=== PATIENT | female | born 1965 | race African-American/Black ===

== ENCOUNTER 2019-05-27 10:51 | Emergency (ER) | payer BC, OTHER ==
[2019-05-27 11:11] VITALS: BP 174/84; PULSE 79; TEMP 97.7; BMI 29.8
--- NOTE | 2019-05-27 11:47 | PDOC ---
History of Present Illness - General Chief Complaint: Blood Sugar Problem Stated Complaint: Hypoglycemia Time Seen by Provider: 05/27/19 11:29 History Source: Patient Exam Limitations: No Limitations - History of Present Illness Initial Comments: 05/27/19 11:29 PCP: Dr. Mert Ruiz HPI: 54yo F PMH DM1, Glaucoma, Retinopathy, Neuropathy, Foot drop, patient presenting s/p hypoglycemic episode while at a brunch event. She denies LOC / trauma. Patient recently changed insurance and can no longer use her insulin pump, she is now on 35 U Lantis qHS and ISS Humalog. Took 20 U of Humalog this morning in anticipation of a big brunch at an event. The food was delayed and she developed altered mental status, her family grew concerned and she felt altered / lightheaded for abotu 30 minutes. During this time, her family attempted to feed her brunch foods. She drank 3 cups of orange juice and a cup of william mimi. Nearby diabetics called 911. When EMS arrived on the scene her BGM was 50 and she was transported to [facility]. Here her BGM was 159. She reports feeling tired at the current time but feels mentally clear and is cooperative, oriented, and denies any other symptoms at this time. All: NKDA Meds: Insulin PMH: DM1, Glaucoma, Retinopathy, Neuropathy, Foot drop PSH: Denies SHx: Denies toxic habits Past History - Past Medical History Allergies/Adverse Reactions: Allergies Allergy/AdvReac Type Severity Reaction Status Date / Time No Known Allergies Allergy Verified 05/27/19 11:10 Home Medications: Ambulatory Orders Cephalexin [Keflex] 500 mg PO TID 7 Days #21 capsule 05/27/19 COPD: No Diabetes: Yes (NEUROPATHY) - Immunization History Immunization Up to Date: Yes - Psycho Social/Smoking Cessation Hx Smoking History: Unknown if ever smoked Have you smoked in the past 12 months: No Information on smoking cessation initiated: No Hx Alcohol Use: No Drug/Substance Use Hx: No Review of Systems - Review of Systems Able to Perform ROS?: Yes Is the patient limited Irish proficient: Yes Constitutional: Yes: Diaphoresis (during event). No: Chills, Fever, Weakness HEENTM: No: Nose Congestion, Throat Pain Respiratory: No: Cough, Shortness of Breath, Wheezing Cardiac (ROS): No: Chest Pain, Edema, Irregular Heart Rate, Lightheadedness, Palpitations, Syncope, Chest Tightness ABD/GI: No: Constipated, Diarrhea, Nausea, Vomiting : No: Burning, Dysuria, Frequency Integumentary: No: Bruising, Pruritus, Rash Neurological: No: Headache, Numbness, Tingling, Weakness Psychiatric: No: Stressors, Change in Appetite Endocrine: No: Increased Thirst, Increased Urine Hematologic/Lymphatic: No: Anemia, Blood Clots, Easy Bleeding All Other Systems: Reviewed and Negative *Physical Exam - Vital Signs Last Vital Signs Temp Pulse Resp BP Pulse Ox 97.7 F 79 19 174/84 H 97 05/27/19 11:08 05/27/19 11:08 05/27/19 11:08 05/27/19 11:08 05/27/19 11:08 - Physical Exam 05/27/19 11:52 Vitals reviewed, AFVSS, BGM 159 GEN: Well appearing, appears stated age, NAD, comfortable. AAOx3. HEENT: NCAT, EOMI, PERRL. Sclera anicteric, non-injected. No facial asymmetry. Moist mucous membranes. Normal voice. Trachea midline. CV: RRR, S1/S2, no murmurs / rubs / gallops appreciated. LUNG: CTAB, normal work of breathing. No wheezes, rales, rhonchi. No cough. Speaking full sentences. GI: Soft, NTND, +BS, no guarding, no rebound. No masses. Neg CVAT b/l. EXTREMITIES: 2+ distal pulses. No LE edema. No obvious deformities of all extremities. SKIN: Warm, dry, no rashes appreciated, non-jaundiced. PSYCH: Normal mood and affect. Cooperative and appropriate. NEURO: CN grossly intact. Moving all extremities well. Normal strength and sensation grossly. ED Treatment Course - LABORATORY CBC & Chemistry Diagram: 05/27/19 11:22 05/27/19 11:22 - ADDITIONAL ORDERS Additional order review: Laboratory Results 05/27/19 11:02 POC Glucometer 159 05/27/19 11:02 POC Glucometer 159 Medical Decision Making - Medical Decision Making 05/27/19 11:53 54yo F PMH DM1, Glaucoma, Retinopathy, Neuropathy, Foot drop, patient presenting s/p hypoglycemic episode while at a brunch event. History notable for exogenous insulin administration inducing hypoglycemia. - CBC, CMP, BGM, UA 05/27/19 12:46 - Patient with UA c/w UTI 05/27/19 12:54 - Labs otherwise unremarkable, Cr 1.4 - 1L IVF ordered - Urine culture ordered 05/27/19 13:43 - Urine culture obtained - Rocephin ordered Dispo: home Discharge - Discharge Information Problems reviewed: Yes Clinical Impression/Diagnosis: Hypoglycemia associated with diabetes UTI (urinary tract infection) Qualifiers: Urinary tract infection type: site unspecified Hematuria presence: with hematuria Qualified Code(s): N39.0 - Urinary tract infection, site not specified Condition: Stable Disposition: HOME - Admission No - Additional Discharge Information Prescriptions: Cephalexin [Keflex] 500 mg PO TID 7 Days #21 capsule - Follow up/Referral Referrals: Mert Ruiz MD, MD [Primary Care Provider] - - Patient Discharge Instructions Patient Printed Discharge Instructions: DI for Urinary Tract Infection (UTI), DI for Hypoglycemia Additional Instructions: Continue your home medications as prescribed. A prescription for antibiotics has been sent to your pharmacy. Please take it as directed, three times a day for 7 days. Please follow up with your primary care doctor on Tuesday morning. Return to the ED for any new or concerning symptoms. - Post Discharge Activity
[2019-05-27 12:19] LABS: BASO % 0.6 % (0-2.0); EOS % 3.6 % (0-4.5); HEMATOCRIT 38.1 % (32.4-45.2); HEMOGLOBIN 12.3 GM/dL (10.7-15.3); LYMPH % 24.9 % (8-40); MCH 26.3 pg (25.7-33.7); MCHC 32.3 g/dl (32.0-36.0); MEAN CELL VOLUME 81.4 fl (80-96); MEAN PLT VOLUME 7.7 fl (7.5-11.1); MONO % 10.9 % (3.8-10.2); PLATELET COUNT 353 K/MM3 (134-434); RBC 4.68 M/mm3 (3.60-5.2); RDW 13.3 % (11.6-15.6); WHITE BLOOD COUNT 6.2 K/mm3 (4.0-10.0)
[2019-05-27 12:22] LABS: EPI CELLS 3.9 /HPF (0-5/HPF); HYALINE CASTS 5 /lpf (0-8); PH,URINE 5.5 (5.0-8.0); URINE APPEARANCE TURBID; URINE BACTERIA 4860.4 /hpf (NEGATIVE); URINE BILIRUBIN NEGATIVE (NEGATIVE); URINE COLOR YELLOW; URINE GLUCOSE (UA) 2+ (NEGATIVE); URINE KETONE NEGATIVE (NEGATIVE); URINE LEUK ESTERASE 2+ (NEGATIVE); URINE NITRITE NEGATIVE (NEGATIVE); URINE PROTEIN 3+ (NEGATIVE); URINE RBC 38 /hpf (0-4); URINE UROBILINOGEN 0.2 mg/dL (0.2-1.0); URINE WBC 774 /hpf (0-5)
[2019-05-27 12:48] LABS: ALBUMIN 2.9 g/dl (3.4-5.0); BILIRUBIN,TOTAL 0.2 mg/dL (0.2-1); BLOOD UREA NITROGEN 26.2 mg/dL (7-18); CALCIUM 9.9 mg/dL (8.5-10.1); CREATININE 1.4 mg/dL (0.55-1.3); POTASSIUM 3.9 mmol/L (3.5-5.1)
--- NOTE | 2019-05-27 12:48 | PDOC ---
Attending Attestation - Resident Resident Name: Cam Dickey - ED Attending Attestation I have performed the following: I have examined & evaluated the patient, The case was reviewed & discussed with the resident, I agree w/resident's findings & plan, Exceptions are as noted - HPI HPI: 05/27/19 54-year-old female brought by ambulance after having a hypoglycemic episode. HPI recently lost insurance coverage for her insulin pump. Today she took both short acting and long acting insulin and delayed eating because she was going out to [facility]. 05/27/19 12:56 - Physicial Exam PE: 05/27/19 12:57 alert petite 54 yo female stating she feels tired head ncat eyes maryse neck supple lungs cta b/l cvs [id number] abd nontender skin warm and dry neuro alert and conversant ,motor strength 5/5 b/l - Medical Decision Making 05/27/19 18:14 pt given food to eat felt much better and was discharged home
[2019-05-27] MEDS ORDERED: SODIUM CHLORIDE 0.9% 500 ML INFUS.BAG IV ONE (12:53)
[2019-05-27] MEDS ORDERED: CEFTRIAXONE 1 GM in DEXTROSE 5%-WATER - 100 ML IVPB ONE (13:42)
[2019-05-27] MEDS ORDERED: CEFTRIAXONE 1 GM/50 ML BAG ONE (13:52)
== END 2019-05-27 14:29 | disposition home or self-care (01) ==
LOC: JER 10:51
DX: E10.649 Type 1 diabetes mellitus with hypoglycemia without coma (principal); Z79.4 Long term (current) use of insulin; N39.0 Urinary tract infection, site not specified; E10.42 Type 1 diabetes mellitus with diabetic polyneuropathy; E10.319 Type 1 diabetes mellitus with unspecified diabetic retinopathy without macular edema; H35.00 Unspecified background retinopathy; H40.9 Unspecified glaucoma
CPT/HCPCS: 36415; 80053; 81003; 82962; 85025; 87077; 87086; 96365; 99284-25

== ENCOUNTER 2020-07-24 04:38 | Day surgery (SDC) | payer BC ==
[2020-07-23 15:06] VITALS: BMI 28.3
[~2020-07-24 04:38] MED LIST: HEPARIN NA (PORCINE) 5,000 UNITS/ML 1ML VIAL SQ ONE; LIDOCAINE HCL 1%, 10 MG/ML (20ML VIAL) INF ONE
[2020-07-24] MEDS ORDERED: LIDOCAINE HCL 1%, 10 MG/ML (20ML VIAL) ONE (07:18)
[2020-07-24] MEDS ORDERED: HEPARIN NA (PORCINE) 5,000 UNITS/ML 1ML VIAL ONE (07:18)
[2020-07-24] MEDS ORDERED: MIDAZOLAM HCL 2 MG/2 ML SINGLE DOSE VIAL ONE ×2 (12:57)
[2020-07-24] MEDS ORDERED: ceFAZolin 2 GRAM PREMIX BAG IVPB ONE (13:10)
[2020-07-24] MEDS ORDERED: ceFAZolin SODIUM 1 GM VIAL ONE (13:18)
[2020-07-24] MEDS ORDERED: LIDOCAINE HCL 1%, 10 MG/ML (20ML VIAL) INF ONE ×3 (13:20→13:22)
[2020-07-24] MEDS ORDERED: HEPARIN NA (PORCINE) 5,000 UNITS/ML 1ML VIAL SQ ONE (13:24)
[2020-07-24] MEDS ORDERED: oxyCODONE HCL 5 MG TABLET PO PRN (13:48)
[2020-07-24] MEDS ORDERED: ONDANSETRON 4 MG/2 ML VIAL IVPUSH PRN (13:48)
[2020-07-24] MEDS ORDERED: LACTATED RINGERS SOLUTION 1,000 ML IV SCH (14:00)
[2020-07-24 15:09] VITALS: TEMP 97.6
[2020-07-24 16:11] VITALS: BP 140/90; PULSE 90
== END 2020-07-24 17:00 | disposition home or self-care (01) ==
LOC: JASU-SURG 04:38
PROVIDERS: ATTEND Surgery Vascular Surgery
PROC: B41DZZZ Fluoroscopy of Aorta and Bilateral Lower Extremity Arteries (ICD-10-PCS; principal; 2020-07-24 09:00)
DX: E11.621 Type 2 diabetes mellitus with foot ulcer (principal); L97.519 Non-pressure chronic ulcer of other part of right foot with unspecified severity; Z79.4 Long term (current) use of insulin
CPT/HCPCS: 75710-TC-FY; 76000-TC-FY; 82962; 94760; J1644

== ENCOUNTER 2020-08-11 12:26 | Emergency (ER) | payer BC ==
[2020-08-12 07:13] LABS: SARS-CoV-2 NAA Not Detected (Not Detected)
== END 2020-08-11 12:56 | disposition home or self-care (01) ==
LOC: JVIRT 12:26
DX: Z11.52 Encounter for screening for COVID-19 (principal)
CPT/HCPCS: C9803; G2251-GT; U0003; U0005

== ENCOUNTER 2020-08-14 16:50 | Emergency (ER) | payer BC ==
[2020-08-14 16:59] VITALS: BP 109/66; PULSE 83; BMI 28.3
== END 2020-08-14 20:30 | disposition home or self-care (01) ==
LOC: JER 16:50
DX: L97.519 Non-pressure chronic ulcer of other part of right foot with unspecified severity (principal)
CPT/HCPCS: 82962; 99283-25

== ENCOUNTER 2020-09-08 11:51 | Inpatient (IN) | payer BC ==
[2020-09-08 13:37] LABS: BASO % 0.1 % (0-2.0); EOS % 0.8 % (0-4.5); HEMATOCRIT 22.1 % (32.4-45.2); MCH 24.4 pg (25.7-33.7); MCHC 31.8 g/dl (32.0-36.0); MEAN CELL VOLUME 76.7 fl (80-96); MEAN PLT VOLUME 6.4 fl (7.5-11.1); MONO % 5.1 % (3.8-10.2); PLATELET COUNT 543 K/MM3 (134-434); RBC 2.88 M/mm3 (3.60-5.2); RDW 15.4 % (11.6-15.6)
[2020-09-08 13:46] LABS: INR 1.14 (0.83-1.09)
[2020-09-08 13:49] LABS: ACTIVATED PTT 26.8 SECONDS (25.2-36.5)
[2020-09-08 14:04] LABS: CHLORIDE 111 mmol/L (98-107); SODIUM 137 mmol/L (136-145)
[2020-09-08 14:08] LABS: ALBUMIN 1.5 g/dl (3.4-5.0); ANION GAP 7 MMOL/L (8-16); CALCIUM 8.6 mg/dL (8.5-10.1); CO2 19 mmol/L (21-32); GLUCOSE,RANDOM 174 mg/dL (74-106); MAGNESIUM 1.7 mg/dL (1.8-2.4)
[2020-09-08 14:11] LABS: CREATININE 2.4 mg/dL (0.55-1.3); SGOT/AST 9 U/L (15-37); SGPT/ALT 11 U/L (13-61)
[2020-09-08] MEDS ORDERED: VANCOMYCIN 1 GM in D5W (PRE-DOCKED) 1,000 MG/250 ML IVPB ONE (14:12)
[2020-09-08] MEDS ORDERED: PIPERACILLIN/TAZOB 4.5 GM 4.5 GM in DEXTROSE 5%-WATER 100 ML IVPB ONE (14:12)
[2020-09-08 14:13] LABS: BILIRUBIN,TOTAL 0.4 mg/dL (0.2-1); TOT PROT 6.7 g/dl (6.4-8.2)
[2020-09-08 14:14] LABS: ALK PHOS 138 U/L (45-117)
[2020-09-08] MEDS ORDERED: MAGNESIUM SULF 50% (8.12 MEQ/2 ML-1 GM VIAL) IVPB ONE (14:14)
[2020-09-08 14:16] LABS: N-TERMINAL BNP 1290.8 pg/ml (5-125)
[2020-09-08 14:18] LABS: BLOOD UREA NITROGEN 47.8 mg/dL (7-18)
[2020-09-08] MEDS ORDERED: SODIUM CHLORIDE 0.9% 500 ML INFUS.BAG IV ONE (14:34)
[2020-09-08] MEDS ORDERED: PIPERACILLIN/TAZOB 4.5 GM 4.5 GM/100 ML BAG IVPB ONE (15:10)
[2020-09-08] MEDS ORDERED: MAGNESIUM SULFATE IN WATER 2 GM/50 ML IVPB IVPB ONE (15:10)
[2020-09-08] MEDS ORDERED: VANCOMYCIN 1 GRAM (PRE-DOCKED) 1,000 MG/250 ML BAG IVPB ONE (15:10)
[2020-09-08 16:02] LABS: ANISOCYTOSIS 1+; MACROCYTOSIS 0; PLATELET ESTIMATE INCREASED
[2020-09-08] MEDS ORDERED: ENOXAPARIN NA (PORCINE) 80 MG/0.8 ML DISP.SYRIN SQ ONE ×2 (16:18→18:12)
[2020-09-08 20:33] VITALS: BMI 30.8
[2020-09-08] MEDS: SODIUM CHLORIDE 1,000 ML IV SCH (21:15)
[2020-09-08 21:18] LABS: EPI CELLS 10 /uL (0-25.1); HYALINE CASTS 2 /uL (0-3.1); URINE APPEARANCE CLEAR; URINE BACTERIA 146 /uL (0-1359); URINE BILIRUBIN NEGATIVE (NEGATIVE); URINE COLOR YELLOW; URINE GLUCOSE (UA) TRACE (NEGATIVE); URINE KETONE NEGATIVE (NEGATIVE); URINE LEUK ESTERASE TRACE (NEGATIVE); URINE NITRITE NEGATIVE (NEGATIVE); URINE PROTEIN 3+ (NEGATIVE); URINE RBC 23 /uL (0-23.9); URINE UROBILINOGEN 0.2 mg/dL (0.2-1.0); URINE WBC 274 /uL (0-25.8)
[2020-09-08] MEDS: HEPARIN NA (PORCINE) 5,000 UNITS/ML 1ML VIAL SQ SCH (21:28)
[2020-09-08] MEDS ORDERED: amLODIPine BESYLATE 10 MG TABLET (FP) PO ONE (23:30)
[2020-09-09] MEDS ORDERED: CYCLOBENZAPRINE HCL 5 MG TABLET PO ONE (00:15)
[2020-09-09] MEDS ORDERED: MIRTAZAPINE 15 MG TABLET (FP) PO ONE ×2 (00:15→00:30)
[2020-09-09] MEDS ORDERED: PIPERACILLIN/TAZOBACTAM 3.375 GM VIAL IVPB ONE ×2 (02:31→09:13)
[2020-09-09] MEDS ORDERED: DEXTROSE 5%-WATER - 50 ML IVPB ONE ×3 (02:32→17:17)
[2020-09-09] MEDS: PIPERACILLIN/TAZOB 3.375 GM 3.375 GM in DEXTROSE 5%-WATER - 50 ML IVPB SCH ×2 (02:53→09:17)
[2020-09-09] MEDS: HEPARIN NA (PORCINE) 5,000 UNITS/ML 1ML VIAL SQ SCH ×3 (05:55→21:10)
[2020-09-09 08:16] LABS: BASO % 0.3 % (0-2.0); EOS % 1.3 % (0-4.5); HEMATOCRIT 28.2 % (32.4-45.2); HEMOGLOBIN 9.1 GM/dL (10.7-15.3); LYMPH % 5.1 % (8-40); MCH 25.3 pg (25.7-33.7); MCHC 32.5 g/dl (32.0-36.0); MEAN CELL VOLUME 77.9 fl (80-96); MEAN PLT VOLUME 6.8 fl (7.5-11.1); MONO % 5.8 % (3.8-10.2); NEUT % 87.5 % (42.8-82.8); PLATELET COUNT 546 K/MM3 (134-434); RBC 3.61 M/mm3 (3.60-5.2); RDW 15.5 % (11.6-15.6); WHITE BLOOD COUNT 25.5 K/mm3 (4.0-10.0)
[2020-09-09 08:36] LABS: CALCIUM 8.5 mg/dL (8.5-10.1); MAGNESIUM 1.8 mg/dL (1.8-2.4)
[2020-09-09 08:37] LABS: ALBUMIN 1.6 g/dl (3.4-5.0); BLOOD UREA NITROGEN 42.4 mg/dL (7-18)
[2020-09-09 08:39] LABS: CREATININE 2.2 mg/dL (0.55-1.3)
[2020-09-09 08:40] LABS: PHOSPHOROUS 4.1 mg/dL (2.5-4.9)
[2020-09-09 08:42] LABS: BILIRUBIN,TOTAL 0.3 mg/dL (0.2-1)
[2020-09-09 11:41] LABS: ANISOCYTOSIS 1+; MACROCYTOSIS 0; PLATELET ESTIMATE INCREASED
[2020-09-09] MEDS ORDERED: FUROSEMIDE 40 MG/4 ML INJECTABLE VIAL IVPUSH ONE (11:48)
[2020-09-09] MEDS ORDERED: ACETAMINOPHEN 325 MG TABLET (FP) PO PRN (11:51)
[2020-09-09] MEDS ORDERED: traMADol HCL 50 MG TABLET PO PRN (13:21)
[2020-09-09] MEDS ORDERED: CYCLOBENZAPRINE HCL 10 MG TABLET (FP) PO PRN (13:21)
[2020-09-09] MEDS: amLODIPine BESYLATE 5 MG TABLET (FP) PO SCH (15:05)
[2020-09-09] MEDS: GABAPENTIN 100 MG CAPSULE PO SCH ×2 (15:05→21:09)
[2020-09-09] MEDS ORDERED: VANCOMYCIN 1 GM in D5W (PRE-DOCKED) 1,000 MG/250 ML IVPB SCH (15:15)
[2020-09-09] MEDS ORDERED: PIPERACILLIN/TAZOBACTAM 2.25 GM VIAL IVPB ONE (17:17)
[2020-09-09] MEDS: LACTOBACILLUS ACIDOPHILUS 1 TABLET PO SCH (17:23)
[2020-09-09] MEDS: INSULIN SLIDING SCALE (NOVOLOG) 1 VIAL SQ SCH ×2 (17:23→21:16)
[2020-09-09] MEDS: PIPERACILLIN/TAZOB 2.25 GM 2.25 GM in DEXTROSE 5%-WATER - 50 ML IVPB SCH (17:24)
[2020-09-09] MEDS: COLLAGENASE CLOSTRIDIUM HIST. 30 GRAMS TUBE TP SCH (17:55)
[2020-09-09] MEDS: MIRTAZAPINE 15 MG TABLET (FP) PO SCH (21:09)
[2020-09-09] MEDS: SODIUM CHLORIDE 1,000 ML IV SCH ×2 (21:15→22:14)
[2020-09-09] MEDS: TIMOLOL 0.5% OPHTHALMIC SOL 5 ML BOTTLE OU SCH (21:46)
[2020-09-10] MEDS ORDERED: PIPERACILLIN/TAZOBACTAM 2.25 GM VIAL IVPB ONE ×3 (01:05→16:57)
[2020-09-10] MEDS ORDERED: DEXTROSE 5%-WATER - 50 ML IVPB ONE ×3 (01:05→16:57)
[2020-09-10] MEDS: PIPERACILLIN/TAZOB 2.25 GM 2.25 GM in DEXTROSE 5%-WATER - 50 ML IVPB SCH ×3 (01:07→17:05)
[2020-09-10] MEDS: HEPARIN NA (PORCINE) 5,000 UNITS/ML 1ML VIAL SQ SCH ×3 (05:40→22:53)
[2020-09-10] MEDS: GABAPENTIN 100 MG CAPSULE PO SCH ×3 (05:40→22:53)
[2020-09-10] MEDS: INSULIN SLIDING SCALE (NOVOLOG) 1 VIAL SQ SCH ×4 (06:18→22:54)
[2020-09-10 07:20] LABS: BASO % 0.4 % (0-2.0); EOS % 1.4 % (0-4.5); HEMATOCRIT 23.6 % (32.4-45.2); HEMOGLOBIN 7.7 GM/dL (10.7-15.3); MCH 25.7 pg (25.7-33.7); MCHC 32.6 g/dl (32.0-36.0); MEAN CELL VOLUME 78.7 fl (80-96); MEAN PLT VOLUME 6.4 fl (7.5-11.1); MONO % 5.1 % (3.8-10.2); NEUT % 85.1 % (42.8-82.8); PLATELET COUNT 557 K/MM3 (134-434); RDW 15.8 % (11.6-15.6); WHITE BLOOD COUNT 24.6 K/mm3 (4.0-10.0)
[2020-09-10 07:39] LABS: CALCIUM 8.2 mg/dL (8.5-10.1)
[2020-09-10 07:40] LABS: ALBUMIN 1.5 g/dl (3.4-5.0); BLOOD UREA NITROGEN 35.5 mg/dL (7-18)
[2020-09-10 07:43] LABS: CREATININE 2.2 mg/dL (0.55-1.3)
[2020-09-10 07:44] LABS: BILIRUBIN,TOTAL 0.6 mg/dL (0.2-1)
[2020-09-10 10:07] LABS: ANISOCYTOSIS 1+; MACROCYTOSIS 0; PLATELET ESTIMATE INCREASED
[2020-09-10] MEDS: amLODIPine BESYLATE 5 MG TABLET (FP) PO SCH (10:08)
[2020-09-10] MEDS: LACTOBACILLUS ACIDOPHILUS 1 TABLET PO SCH (10:08)
[2020-09-10] MEDS: COLLAGENASE CLOSTRIDIUM HIST. 30 GRAMS TUBE TP SCH (10:09)
[2020-09-10] MEDS: TIMOLOL 0.5% OPHTHALMIC SOL 5 ML BOTTLE OU SCH ×2 (10:31→23:07)
[2020-09-10] MEDS ORDERED: FUROSEMIDE 40 MG/4 ML INJECTABLE VIAL IVPUSH ONE (13:57)
[2020-09-10 16:20] LABS: EPI CELLS >36 /uL (0-25.1); HYALINE CASTS 2 /uL (0-3.1); PH,URINE 7.5 (5.0-8.0); URINE APPEARANCE CLEAR; URINE BACTERIA 334 /uL (0-1359); URINE BILIRUBIN NEGATIVE (NEGATIVE); URINE COLOR YELLOW; URINE GLUCOSE (UA) 1+ (NEGATIVE); URINE KETONE NEGATIVE (NEGATIVE); URINE LEUK ESTERASE NEGATIVE (NEGATIVE); URINE NITRITE NEGATIVE (NEGATIVE); URINE PROTEIN 4+ (NEGATIVE); URINE RBC 21 /uL (0-23.9); URINE UROBILINOGEN 0.2 mg/dL (0.2-1.0)
[2020-09-10 16:59] LABS: URINE WBC 75.2 /uL (0-25.8)
[2020-09-10] MEDS: MIRTAZAPINE 15 MG TABLET (FP) PO SCH (22:54)
[2020-09-10] MEDS ORDERED: INSULIN (LEVEMIR) 100 UNITS/ML UNITS SQ ONE (22:57)
[2020-09-11] MEDS ORDERED: PIPERACILLIN/TAZOBACTAM 2.25 GM VIAL IVPB ONE ×3 (02:55→17:30)
[2020-09-11] MEDS ORDERED: DEXTROSE 5%-WATER - 50 ML IVPB ONE ×3 (02:56→17:30)
[2020-09-11] MEDS: PIPERACILLIN/TAZOB 2.25 GM 2.25 GM in DEXTROSE 5%-WATER - 50 ML IVPB SCH ×3 (03:20→17:33)
[2020-09-11] MEDS: GABAPENTIN 100 MG CAPSULE PO SCH ×3 (06:37→21:48)
[2020-09-11] MEDS: HEPARIN NA (PORCINE) 5,000 UNITS/ML 1ML VIAL SQ SCH ×3 (06:37→21:46)
[2020-09-11] MEDS: INSULIN SLIDING SCALE (NOVOLOG) 1 VIAL SQ SCH ×4 (06:37→21:46)
[2020-09-11 07:11] LABS: BASO % 0.5 % (0-2.0); EOS % 1.7 % (0-4.5); HEMATOCRIT 26.3 % (32.4-45.2); HEMOGLOBIN 8.5 GM/dL (10.7-15.3); LYMPH % 7.6 % (8-40); MCH 25.1 pg (25.7-33.7); MCHC 32.4 g/dl (32.0-36.0); MEAN CELL VOLUME 77.6 fl (80-96); MEAN PLT VOLUME 6.8 fl (7.5-11.1); MONO % 7.2 % (3.8-10.2); PLATELET COUNT 508 K/MM3 (134-434); RBC 3.39 M/mm3 (3.60-5.2); RDW 15.7 % (11.6-15.6)
[2020-09-11 07:33] LABS: ALBUMIN 1.4 g/dl (3.4-5.0); CALCIUM 8.2 mg/dL (8.5-10.1)
[2020-09-11 07:36] LABS: CREATININE 2.3 mg/dL (0.55-1.3)
[2020-09-11 07:37] LABS: TOT PROT 6.6 g/dl (6.4-8.2)
[2020-09-11 07:41] LABS: BILIRUBIN,TOTAL 0.2 mg/dL (0.2-1); PHOSPHOROUS 4.2 mg/dL (2.5-4.9)
[2020-09-11] MEDS: amLODIPine BESYLATE 5 MG TABLET (FP) PO SCH (09:35)
[2020-09-11] MEDS: LACTOBACILLUS ACIDOPHILUS 1 TABLET PO SCH (09:35)
[2020-09-11] MEDS: TIMOLOL 0.5% OPHTHALMIC SOL 5 ML BOTTLE OU SCH ×2 (09:36→21:48)
[2020-09-11] MEDS: COLLAGENASE CLOSTRIDIUM HIST. 30 GRAMS TUBE TP SCH (11:08)
[2020-09-11] MEDS ORDERED: LISINOPRIL 5 MG TABLET PO ONE (15:17)
[2020-09-11] MEDS ORDERED: SODIUM ZIRCONIUM CYCLOSILICATE (LOKELMA) 5 GM PACKET PO ONE (15:18)
[2020-09-11] MEDS: FUROSEMIDE 40 MG TABLET (FP) PO SCH (15:42)
[2020-09-11] MEDS: VANCOMYCIN 1 GM in D5W (PRE-DOCKED) 1,000 MG/250 ML IVPB SCH (19:09)
[2020-09-11] MEDS: PIPERACILLIN/TAZOB 3.375 GM 3.375 GM in DEXTROSE 5%-WATER - 50 ML IVPB SCH ×2 (19:09→19:10)
[2020-09-11] MEDS: MIRTAZAPINE 15 MG TABLET (FP) PO SCH (21:48)
[2020-09-11] MEDS ORDERED: INSULIN (LEVEMIR) 100 UNITS/ML UNITS SQ SCH (22:00)
[2020-09-12] MEDS ORDERED: CYCLOBENZAPRINE HCL 10 MG TABLET (FP) PO PRN (00:19)
[2020-09-12] MEDS ORDERED: traMADol HCL 50 MG TABLET PO PRN (00:19)
[2020-09-12] MEDS ORDERED: PIPERACILLIN/TAZOBACTAM 2.25 GM VIAL IVPB ONE ×3 (01:28→16:17)
[2020-09-12] MEDS ORDERED: DEXTROSE 5%-WATER - 50 ML IVPB ONE ×3 (01:28→16:18)
[2020-09-12] MEDS: PIPERACILLIN/TAZOB 2.25 GM 2.25 GM in DEXTROSE 5%-WATER - 50 ML IVPB SCH ×3 (02:58→17:23)
[2020-09-12] MEDS: HEPARIN NA (PORCINE) 5,000 UNITS/ML 1ML VIAL SQ SCH ×2 (06:21→14:40)
[2020-09-12] MEDS: INSULIN SLIDING SCALE (NOVOLOG) 1 VIAL SQ SCH ×3 (06:22→16:46)
[2020-09-12] MEDS: GABAPENTIN 100 MG CAPSULE PO SCH ×2 (06:22→14:39)
[2020-09-12] MEDS: ACETAMINOPHEN 325 MG TABLET (FP) PO PRN ×2 (07:49→14:39)
[2020-09-12 08:33] LABS: BASO % 0.9 % (0-2.0); EOS % 1.7 % (0-4.5); HEMATOCRIT 31.5 % (32.4-45.2); HEMOGLOBIN 10.1 GM/dL (10.7-15.3); LYMPH % 8.5 % (8-40); MCH 25.1 pg (25.7-33.7); MEAN CELL VOLUME 78.4 fl (80-96); MEAN PLT VOLUME 6.9 fl (7.5-11.1); MONO % 6.5 % (3.8-10.2); NEUT % 82.4 % (42.8-82.8); PLATELET COUNT 635 K/MM3 (134-434); RBC 4.02 M/mm3 (3.60-5.2); RDW 15.8 % (11.6-15.6); WHITE BLOOD COUNT 16.4 K/mm3 (4.0-10.0)
[2020-09-12 08:52] LABS: BLOOD UREA NITROGEN 40.4 mg/dL (7-18); CALCIUM 8.7 mg/dL (8.5-10.1)
[2020-09-12 08:56] LABS: CREATININE 2.2 mg/dL (0.55-1.3)
[2020-09-12 08:57] LABS: BILIRUBIN,TOTAL 0.2 mg/dL (0.2-1); TOT PROT 7.6 g/dl (6.4-8.2)
[2020-09-12 08:59] LABS: ALBUMIN 1.8 g/dl (3.4-5.0)
[2020-09-12] MEDS: FUROSEMIDE 40 MG TABLET (FP) PO SCH (09:21)
[2020-09-12 09:49] LABS: EPI CELLS >36 /uL (0-25.1); HYALINE CASTS 14 /uL (0-3.1); URINE APPEARANCE CLEAR; URINE BACTERIA 46 /uL (0-1359); URINE BILIRUBIN NEGATIVE (NEGATIVE); URINE COLOR YELLOW; URINE GLUCOSE (UA) 1+ (NEGATIVE); URINE KETONE NEGATIVE (NEGATIVE); URINE LEUK ESTERASE NEGATIVE (NEGATIVE); URINE NITRITE NEGATIVE (NEGATIVE); URINE PROTEIN 4+ (NEGATIVE); URINE RBC 20 /uL (0-23.9); URINE UROBILINOGEN 0.2 mg/dL (0.2-1.0)
[2020-09-12] MEDS ORDERED: LACTOBACILLUS ACIDOPHILUS 1 TABLET PO SCH (10:00)
[2020-09-12] MEDS ORDERED: INSULIN (LEVEMIR) 100 UNITS/ML UNITS SQ SCH ×3 (10:00)
[2020-09-12] MEDS ORDERED: TIMOLOL 0.5% OPHTHALMIC SOL 5 ML BOTTLE OU SCH (10:00)
[2020-09-12] MEDS ORDERED: amLODIPine BESYLATE 5 MG TABLET (FP) PO SCH (10:00)
[2020-09-12] MEDS ORDERED: COLLAGENASE CLOSTRIDIUM HIST. 30 GRAMS TUBE TP SCH (10:00)
[2020-09-12] MEDS ORDERED: LISINOPRIL 5 MG TABLET PO SCH (16:00)
[2020-09-12 18:47] VITALS: BP 162/88; PULSE 83; TEMP 97.4
[2020-09-12] MEDS ORDERED: MIRTAZAPINE 15 MG TABLET (FP) PO SCH (22:00)
== END 2020-09-12 18:29 | disposition home or self-care (01) | DRG 872 ==
LOC: JER 11:51 → JERBED 15:14 → J4W 18:42 → J5S 09-11 20:04
PROVIDERS: ATTEND Student in an Organized Health Care Education/Training Program
DX: A41.9 Sepsis, unspecified organism (principal); N17.9 Acute kidney failure, unspecified; N39.0 Urinary tract infection, site not specified; T87.43 Infection of amputation stump, right lower extremity; D72.829 Elevated white blood cell count, unspecified; E83.42 Hypomagnesemia; F32.9 Major depressive disorder, single episode, unspecified; D50.9 Iron deficiency anemia, unspecified; Z86.718 Personal history of other venous thrombosis and embolism; E11.40 Type 2 diabetes mellitus with diabetic neuropathy, unspecified; E87.5 Hyperkalemia; I27.20 Pulmonary hypertension, unspecified; D63.8 Anemia in other chronic diseases classified elsewhere; E11.51 Type 2 diabetes mellitus with diabetic peripheral angiopathy without gangrene; E11.621 Type 2 diabetes mellitus with foot ulcer; L97.519 Non-pressure chronic ulcer of other part of right foot with unspecified severity; Y83.5 Amputation of limb(s) as the cause of abnormal reaction of the patient, or of later complication, without mention of misadventure at the time of the procedure
CPT/HCPCS: 11042; 36415; 36430; 71045-TC-FY; 76775-TC; 76856-TC; 80053; 81003; 82043; 82272; 82550; 82570; 82728; 82962; 83010; 83036; 83540; 83550; 83605; 83735; 83880; 84100; 84156; 84484; 85025; 85045; 85379; 85610; 85730; 86850; 86900; 86901; 86922; 87040; 87070; 87086; 87205; 93005; 93010; 93306-TC; 93971-TC; 97116-GP; 97161-GP; 99285-25; A6022; C9803; J1644; P9058; U0003; U0005

== ENCOUNTER 2020-10-02 10:28 | Inpatient (IN) | payer OTHER ==
[2020-10-02 11:51] LABS: BASO % 1.7 % (0-2.0); EOS % 3.1 % (0-4.5); HEMATOCRIT 21.8 % (32.4-45.2); LYMPH % 12.3 % (8-40); MCH 24.6 pg (25.7-33.7); MCHC 32.3 g/dl (32.0-36.0); MEAN CELL VOLUME 76.1 fl (80-96); MEAN PLT VOLUME 6.7 fl (7.5-11.1); MONO % 7.2 % (3.8-10.2); NEUT % 75.7 % (42.8-82.8); PLATELET COUNT 469 10^3/uL (134-434); RBC 2.86 M/mm3 (3.60-5.2); RDW 16.8 % (11.6-15.6); WHITE BLOOD COUNT 9.4 K/mm3 (4.0-10.0)
[2020-10-02 12:01] LABS: INR 0.99 (0.83-1.09); PROTHROMBIN TIME (PATIENT) 12.2 SEC (9.7-13.0)
[2020-10-02 12:04] LABS: ACTIVATED PTT 30.2 SECONDS (25.2-36.5)
[2020-10-02 12:11] LABS: CALCIUM 8.4 mg/dL (8.5-10.1)
[2020-10-02 12:12] LABS: ALBUMIN 1.7 g/dl (3.4-5.0); BLOOD UREA NITROGEN 41.9 mg/dL (7-18)
[2020-10-02 12:15] LABS: CREATININE 2.1 mg/dL (0.55-1.3)
[2020-10-02 12:16] LABS: BILIRUBIN,TOTAL 0.2 mg/dL (0.2-1); TOT PROT 7.2 g/dl (6.4-8.2)
[2020-10-02] MEDS ORDERED: PIPERACILLIN/TAZOB 4.5 GM 4.5 GM in DEXTROSE 5%-WATER 100 ML IVPB ONE (13:09)
[2020-10-02] MEDS ORDERED: VANCOMYCIN 1 GM in D5W (PRE-DOCKED) 1,000 MG/250 ML IVPB ONE (13:09)
[2020-10-02] MEDS ORDERED: PIPERACILLIN/TAZOB 4.5 GM 4.5 GM/100 ML BAG IVPB ONE (13:15)
[2020-10-02] MEDS ORDERED: VANCOMYCIN 1 GRAM (PRE-DOCKED) 1,000 MG/250 ML BAG IVPB ONE (13:16)
[2020-10-02] MEDS ORDERED: ONDANSETRON 4 MG/2 ML VIAL IVPUSH PRN (14:57)
[2020-10-02] MEDS ORDERED: PIPERACILLIN/TAZOB 2.25 GM 2.25 GM in DEXTROSE 5%-WATER - 50 ML IVPB SCH (15:00)
[2020-10-02 17:56] VITALS: BMI 30.6
[2020-10-02] MEDS: INSULIN SLIDING SCALE (NOVOLOG) 1 VIAL SQ SCH ×2 (18:38→21:06)
[2020-10-02 20:20] LABS: RETICULOCYTES 2.03 % (0.5-1.5)
[2020-10-02] MEDS ORDERED: PIPERACILLIN/TAZOBACTAM 2.25 GM VIAL IVPB ONE (20:51)
[2020-10-02] MEDS ORDERED: DEXTROSE 5%-WATER - 50 ML IVPB ONE (20:51)
[2020-10-02] MEDS: HEPARIN NA (PORCINE) 5,000 UNITS/ML 1ML VIAL SQ SCH (20:59)
[2020-10-02] MEDS: PIPERACILLIN/TAZOB 2.25 GM 2.25 GM in DEXTROSE 5%-WATER - 50 ML IVPB SCH (20:59)
[2020-10-03] MEDS: ACETAMINOPHEN 325 MG TABLET (FP) PO PRN (00:12)
[2020-10-03] MEDS ORDERED: DEXTROSE 5%-WATER - 50 ML IVPB ONE ×3 (02:15→17:37)
[2020-10-03] MEDS ORDERED: PIPERACILLIN/TAZOBACTAM 2.25 GM VIAL IVPB ONE ×2 (02:15→09:07)
[2020-10-03] MEDS: PIPERACILLIN/TAZOB 2.25 GM 2.25 GM in DEXTROSE 5%-WATER - 50 ML IVPB SCH ×2 (02:19→09:12)
[2020-10-03] MEDS: INSULIN SLIDING SCALE (NOVOLOG) 1 VIAL SQ SCH ×4 (06:25→21:43)
[2020-10-03] MEDS: HEPARIN NA (PORCINE) 5,000 UNITS/ML 1ML VIAL SQ SCH ×3 (06:25→21:43)
[2020-10-03 07:28] LABS: BASO % 0.9 % (0-2.0); EOS % 4.4 % (0-4.5); HEMATOCRIT 20.9 % (32.4-45.2); MCH 24.3 pg (25.7-33.7); MEAN PLT VOLUME 6.6 fl (7.5-11.1); MONO % 6.2 % (3.8-10.2); NEUT % 75.5 % (42.8-82.8); PLATELET COUNT 455 10^3/uL (134-434); RBC 2.75 M/mm3 (3.60-5.2); RDW 16.9 % (11.6-15.6); WHITE BLOOD COUNT 7.6 K/mm3 (4.0-10.0)
[2020-10-03 07:47] LABS: CALCIUM 7.9 mg/dL (8.5-10.1); HEMOGLOBIN 6.7 GM/dL (10.7-15.3)
[2020-10-03 07:48] LABS: ALBUMIN 1.7 g/dl (3.4-5.0); BLOOD UREA NITROGEN 46.3 mg/dL (7-18); MAGNESIUM 1.9 mg/dL (1.8-2.4)
[2020-10-03 07:51] LABS: CREATININE 2.2 mg/dL (0.55-1.3); PHOSPHOROUS 4.9 mg/dL (2.5-4.9)
[2020-10-03 07:52] LABS: BILIRUBIN,TOTAL 0.2 mg/dL (0.2-1); TOT PROT 6.6 g/dl (6.4-8.2)
[2020-10-03] MEDS ORDERED: SODIUM ZIRCONIUM CYCLOSILICATE (LOKELMA) 5 GM PACKET PO ONE (07:58)
[2020-10-03] MEDS: LACTOBACILLUS ACIDOPHILUS 1 TABLET PO SCH (09:12)
[2020-10-03] MEDS: LOSARTAN POTASSIUM 50 MG TABLET PO SCH (09:12)
[2020-10-03] MEDS: amLODIPine BESYLATE 5 MG TABLET (FP) PO SCH (09:12)
[2020-10-03] MEDS: FUROSEMIDE 40 MG TABLET (FP) PO SCH (09:12)
[2020-10-03] MEDS ORDERED: SODIUM ZIRCONIUM CYCLOSILICATE (LOKELMA) 5 GM PACKET PO SCH (10:00)
[2020-10-03] MEDS ORDERED: VANCOMYCIN 1 GM in D5W (PRE-DOCKED) 1,000 MG/250 ML IVPB SCH ×2 (10:00→15:00)
[2020-10-03] MEDS ORDERED: GABAPENTIN 100 MG CAPSULE PO SCH (14:00)
[2020-10-03 16:44] LABS: BASO % 1.7 % (0-2.0); EOS % 4.6 % (0-4.5); HEMATOCRIT 27.9 % (32.4-45.2); HEMOGLOBIN 9.1 GM/dL (10.7-15.3); LYMPH % 9.3 % (8-40); MCH 25.2 pg (25.7-33.7); MCHC 32.6 g/dl (32.0-36.0); MEAN CELL VOLUME 77.2 fl (80-96); MEAN PLT VOLUME 7.3 fl (7.5-11.1); MONO % 7.2 % (3.8-10.2); NEUT % 77.2 % (42.8-82.8); RBC 3.61 M/mm3 (3.60-5.2); RDW 17.1 % (11.6-15.6); WHITE BLOOD COUNT 9.7 K/mm3 (4.0-10.0)
[2020-10-03 17:04] LABS: CALCIUM 8.1 mg/dL (8.5-10.1)
[2020-10-03 17:05] LABS: BLOOD UREA NITROGEN 41.6 mg/dL (7-18)
[2020-10-03 17:08] LABS: CREATININE 2.1 mg/dL (0.55-1.3); PLATELET COUNT 472 10^3/uL (134-434); PLATELET ESTIMATE INCREASED
[2020-10-03] MEDS ORDERED: PIPERACILLIN/TAZOBACTAM 3.375 GM VIAL IVPB ONE (17:37)
[2020-10-03] MEDS: PIPERACILLIN/TAZOB 3.375 GM 3.375 GM in DEXTROSE 5%-WATER - 50 ML IVPB SCH (17:55)
[2020-10-03] MEDS ORDERED: INSULIN (NOVOLOG) ASPART 100 UNITS/ML 10ML VIAL ONE (21:38)
[2020-10-03] MEDS: GABAPENTIN 100 MG CAPSULE PO SCH (21:42)
[2020-10-03] MEDS: TIMOLOL 0.5% OPHTHALMIC SOL 5 ML BOTTLE OU SCH (21:44)
[2020-10-04] MEDS ORDERED: PIPERACILLIN/TAZOBACTAM 3.375 GM VIAL IVPB ONE ×3 (01:00→16:53)
[2020-10-04] MEDS ORDERED: DEXTROSE 5%-WATER - 50 ML IVPB ONE ×3 (01:00→16:53)
[2020-10-04] MEDS: PIPERACILLIN/TAZOB 3.375 GM 3.375 GM in DEXTROSE 5%-WATER - 50 ML IVPB SCH ×3 (01:08→17:08)
[2020-10-04] MEDS: HEPARIN NA (PORCINE) 5,000 UNITS/ML 1ML VIAL SQ SCH ×3 (05:22→21:08)
[2020-10-04] MEDS: GABAPENTIN 100 MG CAPSULE PO SCH ×3 (05:22→21:09)
[2020-10-04] MEDS: INSULIN SLIDING SCALE (NOVOLOG) 1 VIAL SQ SCH ×4 (06:39→21:10)
[2020-10-04] MEDS: COLLAGENASE CLOSTRIDIUM HIST. 30 GRAMS TUBE TP SCH (09:40)
[2020-10-04] MEDS: LOSARTAN POTASSIUM 50 MG TABLET PO SCH (09:40)
[2020-10-04] MEDS: LACTOBACILLUS ACIDOPHILUS 1 TABLET PO SCH (09:40)
[2020-10-04] MEDS: FUROSEMIDE 40 MG TABLET (FP) PO SCH (09:40)
[2020-10-04] MEDS: amLODIPine BESYLATE 5 MG TABLET (FP) PO SCH (09:40)
[2020-10-04] MEDS: TIMOLOL 0.5% OPHTHALMIC SOL 5 ML BOTTLE OU SCH ×2 (09:41→21:09)
[2020-10-04 09:56] LABS: BASO % 1.3 % (0-2.0); EOS % 4.6 % (0-4.5); HEMATOCRIT 26.8 % (32.4-45.2); HEMOGLOBIN 8.5 GM/dL (10.7-15.3); LYMPH % 12.9 % (8-40); MCH 24.9 pg (25.7-33.7); MCHC 31.9 g/dl (32.0-36.0); MEAN PLT VOLUME 7.3 fl (7.5-11.1); MONO % 8.3 % (3.8-10.2); NEUT % 72.9 % (42.8-82.8); PLATELET COUNT 457 10^3/uL (134-434); RBC 3.43 M/mm3 (3.60-5.2); RDW 16.9 % (11.6-15.6); WHITE BLOOD COUNT 9.1 K/mm3 (4.0-10.0)
[2020-10-04 10:18] LABS: ALBUMIN 1.8 g/dl (3.4-5.0); BLOOD UREA NITROGEN 39.8 mg/dL (7-18); MAGNESIUM 1.8 mg/dL (1.8-2.4)
[2020-10-04 10:21] LABS: CREATININE 2.5 mg/dL (0.55-1.3)
[2020-10-04 10:22] LABS: BILIRUBIN,TOTAL 0.3 mg/dL (0.2-1)
[2020-10-04 10:23] LABS: TOT PROT 7.4 g/dl (6.4-8.2)
[2020-10-04] MEDS ORDERED: INSULIN (NOVOLOG) ASPART 100 UNITS/ML 10ML VIAL ONE ×3 (11:01→21:03)
[2020-10-04] MEDS ORDERED: INSULIN (LEVEMIR) 100 UNITS/ML UNITS SQ ONE (11:09)
[2020-10-04] MEDS: SODIUM ZIRCONIUM CYCLOSILICATE (LOKELMA) 5 GM PACKET PO SCH (11:19)
[2020-10-04] MEDS: LIDOCAINE 5% TOPICAL PATCH TP SCH (12:18)
[2020-10-04] MEDS: LIDOCAINE PATCH REMOVAL MC SCH (21:10)
[2020-10-04] MEDS ORDERED: INSULIN (LEVEMIR) 100 UNITS/ML UNITS SQ SCH (22:00)
[2020-10-05] MEDS ORDERED: DEXTROSE 5%-WATER - 50 ML IVPB ONE ×3 (01:13→16:53)
[2020-10-05] MEDS ORDERED: PIPERACILLIN/TAZOBACTAM 3.375 GM VIAL IVPB ONE ×3 (01:13→16:52)
[2020-10-05] MEDS: PIPERACILLIN/TAZOB 3.375 GM 3.375 GM in DEXTROSE 5%-WATER - 50 ML IVPB SCH ×3 (01:50→17:01)
[2020-10-05] MEDS: ACETAMINOPHEN 325 MG TABLET (FP) PO PRN ×2 (03:37→21:28)
[2020-10-05] MEDS: GABAPENTIN 100 MG CAPSULE PO SCH ×3 (06:17→21:26)
[2020-10-05] MEDS: HEPARIN NA (PORCINE) 5,000 UNITS/ML 1ML VIAL SQ SCH ×3 (06:17→21:26)
[2020-10-05] MEDS: INSULIN (LEVEMIR) 100 UNITS/ML UNITS SQ SCH (06:32)
[2020-10-05] MEDS: INSULIN SLIDING SCALE (NOVOLOG) 1 VIAL SQ SCH ×4 (06:32→21:39)
[2020-10-05 07:49] LABS: BASO % 1.2 % (0-2.0); EOS % 4.6 % (0-4.5); HEMATOCRIT 28.9 % (32.4-45.2); HEMOGLOBIN 9.2 GM/dL (10.7-15.3); LYMPH % 12.2 % (8-40); MCH 24.8 pg (25.7-33.7); MCHC 31.9 g/dl (32.0-36.0); MEAN CELL VOLUME 77.5 fl (80-96); MEAN PLT VOLUME 6.9 fl (7.5-11.1); MONO % 4.5 % (3.8-10.2); NEUT % 77.5 % (42.8-82.8); PLATELET COUNT 483 10^3/uL (134-434); RBC 3.73 M/mm3 (3.60-5.2); RDW 16.8 % (11.6-15.6); WHITE BLOOD COUNT 8.3 K/mm3 (4.0-10.0)
[2020-10-05 08:16] LABS: ALBUMIN 1.8 g/dl (3.4-5.0); BLOOD UREA NITROGEN 46.6 mg/dL (7-18)
[2020-10-05 08:19] LABS: CREATININE 2.3 mg/dL (0.55-1.3)
[2020-10-05 08:21] LABS: BILIRUBIN,TOTAL 0.6 mg/dL (0.2-1); TOT PROT 7.4 g/dl (6.4-8.2)
[2020-10-05] MEDS: LOSARTAN POTASSIUM 50 MG TABLET PO SCH (09:01)
[2020-10-05] MEDS: FUROSEMIDE 40 MG TABLET (FP) PO SCH (09:01)
[2020-10-05] MEDS: amLODIPine BESYLATE 5 MG TABLET (FP) PO SCH (09:01)
[2020-10-05] MEDS: LACTOBACILLUS ACIDOPHILUS 1 TABLET PO SCH ×4 (09:01→21:26)
[2020-10-05] MEDS: LIDOCAINE 5% TOPICAL PATCH TP SCH (09:01)
[2020-10-05] MEDS ORDERED: PT OWN MED DRAWER 7, Y5N ONE (11:16)
[2020-10-05] MEDS: COLLAGENASE CLOSTRIDIUM HIST. 30 GRAMS TUBE TP SCH (11:43)
[2020-10-05] MEDS: SODIUM ZIRCONIUM CYCLOSILICATE (LOKELMA) 5 GM PACKET PO SCH (11:43)
[2020-10-05] MEDS: TIMOLOL 0.5% OPHTHALMIC SOL 5 ML BOTTLE OU SCH ×2 (11:44→21:27)
[2020-10-05] MEDS ORDERED: LOPERAMIDE HCL 2 MG CAPSULE PO ONE (18:36)
[2020-10-05] MEDS: LIDOCAINE PATCH REMOVAL MC SCH (21:27)
[2020-10-06] MEDS ORDERED: PIPERACILLIN/TAZOBACTAM 3.375 GM VIAL IVPB ONE ×3 (02:24→16:54)
[2020-10-06] MEDS ORDERED: DEXTROSE 5%-WATER - 50 ML IVPB ONE ×3 (02:24→16:54)
[2020-10-06] MEDS: PIPERACILLIN/TAZOB 3.375 GM 3.375 GM in DEXTROSE 5%-WATER - 50 ML IVPB SCH ×3 (02:25→17:28)
[2020-10-06] MEDS: HEPARIN NA (PORCINE) 5,000 UNITS/ML 1ML VIAL SQ SCH ×3 (06:16→21:29)
[2020-10-06] MEDS: GABAPENTIN 100 MG CAPSULE PO SCH ×3 (06:16→21:29)
[2020-10-06] MEDS: INSULIN (LEVEMIR) 100 UNITS/ML UNITS SQ SCH (06:17)
[2020-10-06] MEDS: INSULIN SLIDING SCALE (NOVOLOG) 1 VIAL SQ SCH ×4 (06:18→21:29)
[2020-10-06 07:45] LABS: HEMATOCRIT 27.5 % (32.4-45.2); HEMOGLOBIN 8.9 GM/dL (10.7-15.3); LYMPH % 12.1 % (8-40); MCH 25.4 pg (25.7-33.7); MCHC 32.4 g/dl (32.0-36.0); MEAN CELL VOLUME 78.3 fl (80-96); MEAN PLT VOLUME 6.9 fl (7.5-11.1); MONO % 5.8 % (3.8-10.2); NEUT % 77.1 % (42.8-82.8); PLATELET COUNT 426 10^3/uL (134-434); RBC 3.51 M/mm3 (3.60-5.2); RDW 16.7 % (11.6-15.6); WHITE BLOOD COUNT 8.9 K/mm3 (4.0-10.0)
[2020-10-06 08:01] LABS: ALBUMIN 1.8 g/dl (3.4-5.0); CALCIUM 7.8 mg/dL (8.5-10.1)
[2020-10-06 08:02] LABS: BLOOD UREA NITROGEN 47.6 mg/dL (7-18); MAGNESIUM 2.1 mg/dL (1.8-2.4)
[2020-10-06 08:05] LABS: CREATININE 2.4 mg/dL (0.55-1.3)
[2020-10-06 08:06] LABS: BILIRUBIN,TOTAL 0.2 mg/dL (0.2-1); TOT PROT 7.3 g/dl (6.4-8.2)
[2020-10-06] MEDS ORDERED: PT OWN MED DRAWER 7, Y5N ONE (09:13)
[2020-10-06] MEDS: LIDOCAINE 5% TOPICAL PATCH TP SCH (09:19)
[2020-10-06] MEDS: LACTOBACILLUS ACIDOPHILUS 1 TABLET PO SCH ×2 (09:19→21:29)
[2020-10-06] MEDS: LOSARTAN POTASSIUM 50 MG TABLET PO SCH (09:19)
[2020-10-06] MEDS: FUROSEMIDE 40 MG TABLET (FP) PO SCH ×2 (09:19→14:38)
[2020-10-06] MEDS: SODIUM ZIRCONIUM CYCLOSILICATE (LOKELMA) 5 GM PACKET PO SCH (09:19)
[2020-10-06] MEDS: amLODIPine BESYLATE 5 MG TABLET (FP) PO SCH (09:19)
[2020-10-06] MEDS: TIMOLOL 0.5% OPHTHALMIC SOL 5 ML BOTTLE OU SCH ×2 (09:20→21:29)
[2020-10-06] MEDS: COLLAGENASE CLOSTRIDIUM HIST. 30 GRAMS TUBE TP SCH (09:20)
[2020-10-06] MEDS: LIDOCAINE PATCH REMOVAL MC SCH (21:29)
[2020-10-06] MEDS: ACETAMINOPHEN 325 MG TABLET (FP) PO PRN (23:56)
[2020-10-07] MEDS ORDERED: DEXTROSE 5%-WATER - 50 ML IVPB ONE ×2 (01:42→10:38)
[2020-10-07] MEDS ORDERED: PIPERACILLIN/TAZOBACTAM 3.375 GM VIAL IVPB ONE ×2 (01:42→10:38)
[2020-10-07] MEDS: PIPERACILLIN/TAZOB 3.375 GM 3.375 GM in DEXTROSE 5%-WATER - 50 ML IVPB SCH ×2 (01:46→10:50)
[2020-10-07] MEDS: LOPERAMIDE HCL 2 MG CAPSULE PO PRN ×2 (04:21→21:05)
[2020-10-07] MEDS: HEPARIN NA (PORCINE) 5,000 UNITS/ML 1ML VIAL SQ SCH ×3 (06:11→22:42)
[2020-10-07] MEDS: FUROSEMIDE 40 MG TABLET (FP) PO SCH (06:11)
[2020-10-07] MEDS: GABAPENTIN 100 MG CAPSULE PO SCH ×3 (06:11→22:42)
[2020-10-07] MEDS: INSULIN SLIDING SCALE (NOVOLOG) 1 VIAL SQ SCH ×4 (06:12→22:43)
[2020-10-07] MEDS: INSULIN (LEVEMIR) 100 UNITS/ML UNITS SQ SCH (06:13)
[2020-10-07 07:33] LABS: EOS % 3.8 % (0-4.5); HEMATOCRIT 22.5 % (32.4-45.2); HEMOGLOBIN 7.4 GM/dL (10.7-15.3); LYMPH % 14.6 % (8-40); MCH 25.2 pg (25.7-33.7); MCHC 32.8 g/dl (32.0-36.0); MEAN CELL VOLUME 76.9 fl (80-96); MEAN PLT VOLUME 7.1 fl (7.5-11.1); MONO % 6.1 % (3.8-10.2); NEUT % 74.5 % (42.8-82.8); PLATELET COUNT 322 10^3/uL (134-434); RBC 2.92 M/mm3 (3.60-5.2); RDW 16.9 % (11.6-15.6); WHITE BLOOD COUNT 6.6 K/mm3 (4.0-10.0)
[2020-10-07 08:20] LABS: ALBUMIN 1.6 g/dl (3.4-5.0); BILIRUBIN,TOTAL 0.2 mg/dL (0.2-1); BLOOD UREA NITROGEN 49.9 mg/dL (7-18); CALCIUM 7.4 mg/dL (8.5-10.1); CREATININE 2.5 mg/dL (0.55-1.3); TOT PROT 6.5 g/dl (6.4-8.2)
[2020-10-07] MEDS ORDERED: PT OWN MED DRAWER 7, Y5N ONE (10:37)
[2020-10-07] MEDS: SODIUM ZIRCONIUM CYCLOSILICATE (LOKELMA) 5 GM PACKET PO SCH (10:48)
[2020-10-07] MEDS: LIDOCAINE 5% TOPICAL PATCH TP SCH (10:48)
[2020-10-07] MEDS: amLODIPine BESYLATE 5 MG TABLET (FP) PO SCH (10:50)
[2020-10-07] MEDS: LACTOBACILLUS ACIDOPHILUS 1 TABLET PO SCH ×2 (10:50→22:42)
[2020-10-07] MEDS: TIMOLOL 0.5% OPHTHALMIC SOL 5 ML BOTTLE OU SCH ×2 (10:50→22:46)
[2020-10-07] MEDS: LOSARTAN POTASSIUM 50 MG TABLET PO SCH (10:50)
[2020-10-07 12:26] LABS: HEMATOCRIT 25.2 % (32.4-45.2); HEMOGLOBIN 8.2 GM/dL (10.7-15.3); MCH 25.1 pg (25.7-33.7); MCHC 32.4 g/dl (32.0-36.0); MEAN CELL VOLUME 77.5 fl (80-96); MEAN PLT VOLUME 6.9 fl (7.5-11.1); PLATELET COUNT 337 10^3/uL (134-434); RBC 3.25 M/mm3 (3.60-5.2); RDW 17.4 % (11.6-15.6); WHITE BLOOD COUNT 6.9 K/mm3 (4.0-10.0)
[2020-10-07] MEDS: COLLAGENASE CLOSTRIDIUM HIST. 30 GRAMS TUBE TP SCH (14:23)
[2020-10-07] MEDS ORDERED: INSULIN (NOVOLOG) ASPART 100 UNITS/ML 10ML VIAL ONE (17:05)
[2020-10-07] MEDS: LIDOCAINE PATCH REMOVAL MC SCH (22:47)
[2020-10-08] MEDS: ACETAMINOPHEN 325 MG TABLET (FP) PO PRN (03:57)
[2020-10-08] MEDS: GABAPENTIN 100 MG CAPSULE PO SCH ×3 (06:38→21:39)
[2020-10-08] MEDS: HEPARIN NA (PORCINE) 5,000 UNITS/ML 1ML VIAL SQ SCH ×3 (06:38→21:47)
[2020-10-08] MEDS: INSULIN (LEVEMIR) 100 UNITS/ML UNITS SQ SCH (06:38)
[2020-10-08] MEDS: INSULIN SLIDING SCALE (NOVOLOG) 1 VIAL SQ SCH ×4 (06:39→21:40)
[2020-10-08 08:54] LABS: BASO % 1.5 % (0-2.0); EOS % 2.5 % (0-4.5); HEMATOCRIT 24.4 % (32.4-45.2); HEMOGLOBIN 7.8 GM/dL (10.7-15.3); LYMPH % 13.8 % (8-40); MEAN CELL VOLUME 78.3 fl (80-96); MEAN PLT VOLUME 7.2 fl (7.5-11.1); MONO % 6.1 % (3.8-10.2); NEUT % 76.1 % (42.8-82.8); PLATELET COUNT 359 10^3/uL (134-434); RBC 3.12 M/mm3 (3.60-5.2)
[2020-10-08 09:03] LABS: CALCIUM 7.7 mg/dL (8.5-10.1)
[2020-10-08 09:04] LABS: ALBUMIN 1.8 g/dl (3.4-5.0); BLOOD UREA NITROGEN 50.5 mg/dL (7-18); MAGNESIUM 2.2 mg/dL (1.8-2.4)
[2020-10-08 09:07] LABS: CREATININE 2.5 mg/dL (0.55-1.3)
[2020-10-08 09:08] LABS: BILIRUBIN,TOTAL 0.2 mg/dL (0.2-1); TOT PROT 7.2 g/dl (6.4-8.2)
[2020-10-08] MEDS ORDERED: PT OWN MED DRAWER 7, Y5N ONE (09:55)
[2020-10-08] MEDS ORDERED: DEXTROSE 5%-WATER 100 ML IVPB ONE (09:55)
[2020-10-08] MEDS: CEFTRIAXONE 2 GM in DEXTROSE 5%-WATER 100 ML IVPB SCH (10:02)
[2020-10-08] MEDS: FUROSEMIDE 40 MG TABLET (FP) PO SCH (10:03)
[2020-10-08] MEDS: SODIUM ZIRCONIUM CYCLOSILICATE (LOKELMA) 5 GM PACKET PO SCH (10:03)
[2020-10-08] MEDS: LOSARTAN POTASSIUM 50 MG TABLET PO SCH (10:03)
[2020-10-08] MEDS: amLODIPine BESYLATE 5 MG TABLET (FP) PO SCH (10:03)
[2020-10-08] MEDS: LIDOCAINE 5% TOPICAL PATCH TP SCH (10:03)
[2020-10-08] MEDS: TIMOLOL 0.5% OPHTHALMIC SOL 5 ML BOTTLE OU SCH ×2 (10:03→21:40)
[2020-10-08] MEDS: COLLAGENASE CLOSTRIDIUM HIST. 30 GRAMS TUBE TP SCH (10:03)
[2020-10-08] MEDS: LACTOBACILLUS ACIDOPHILUS 1 TABLET PO SCH ×2 (10:03→21:38)
[2020-10-08] MEDS ORDERED: INSULIN (NOVOLOG) ASPART 100 UNITS/ML 10ML VIAL ONE (21:26)
[2020-10-08] MEDS: LIDOCAINE PATCH REMOVAL MC SCH (21:48)
[2020-10-08 22:20] VITALS: TEMP 97.8
[2020-10-09] MEDS: ACETAMINOPHEN 325 MG TABLET (FP) PO PRN ×4 (01:55→20:06)
[2020-10-09] MEDS: HEPARIN NA (PORCINE) 5,000 UNITS/ML 1ML VIAL SQ SCH ×3 (05:09→21:47)
[2020-10-09] MEDS: GABAPENTIN 100 MG CAPSULE PO SCH ×3 (05:09→21:47)
[2020-10-09] MEDS: INSULIN SLIDING SCALE (NOVOLOG) 1 VIAL SQ SCH ×3 (06:29→21:48)
[2020-10-09] MEDS: INSULIN (LEVEMIR) 100 UNITS/ML UNITS SQ SCH (06:30)
[2020-10-09] MEDS ORDERED: INSULIN (NOVOLOG) ASPART 100 UNITS/ML 10ML VIAL ONE (07:02)
[2020-10-09 08:53] LABS: BASO % 1.1 % (0-2.0); HEMATOCRIT 24.5 % (32.4-45.2); HEMOGLOBIN 7.8 GM/dL (10.7-15.3); LYMPH % 9.2 % (8-40); MCH 25.1 pg (25.7-33.7); MCHC 31.8 g/dl (32.0-36.0); MEAN CELL VOLUME 78.9 fl (80-96); MEAN PLT VOLUME 7.9 fl (7.5-11.1); MONO % 7.2 % (3.8-10.2); NEUT % 80.5 % (42.8-82.8); PLATELET COUNT 353 10^3/uL (134-434); RBC 3.11 M/mm3 (3.60-5.2); WHITE BLOOD COUNT 10.2 K/mm3 (4.0-10.0)
[2020-10-09] MEDS ORDERED: PT OWN MED DRAWER 7, Y5N ONE (09:04)
[2020-10-09] MEDS: amLODIPine BESYLATE 5 MG TABLET (FP) PO SCH (09:08)
[2020-10-09] MEDS: FUROSEMIDE 40 MG TABLET (FP) PO SCH (09:08)
[2020-10-09] MEDS: LOSARTAN POTASSIUM 50 MG TABLET PO SCH (09:08)
[2020-10-09] MEDS: LIDOCAINE 5% TOPICAL PATCH TP SCH (09:09)
[2020-10-09] MEDS: COLLAGENASE CLOSTRIDIUM HIST. 30 GRAMS TUBE TP SCH (09:09)
[2020-10-09] MEDS: LACTOBACILLUS ACIDOPHILUS 1 TABLET PO SCH ×2 (09:09→21:47)
[2020-10-09] MEDS: TIMOLOL 0.5% OPHTHALMIC SOL 5 ML BOTTLE OU SCH ×2 (09:09→21:54)
[2020-10-09] MEDS: SODIUM ZIRCONIUM CYCLOSILICATE (LOKELMA) 5 GM PACKET PO SCH (09:09)
[2020-10-09 09:26] LABS: ALBUMIN 1.9 g/dl (3.4-5.0)
[2020-10-09 09:27] LABS: MAGNESIUM 2.3 mg/dL (1.8-2.4)
[2020-10-09 09:30] LABS: CREATININE 2.6 mg/dL (0.55-1.3)
[2020-10-09 09:32] LABS: TOT PROT 7.4 g/dl (6.4-8.2)
[2020-10-09 09:35] LABS: BILIRUBIN,TOTAL 0.2 mg/dL (0.2-1)
[2020-10-09] MEDS ORDERED: DEXTROSE 5%-WATER 100 ML IVPB ONE (10:32)
[2020-10-09] MEDS ORDERED: SODIUM ZIRCONIUM CYCLOSILICATE (LOKELMA) 5 GM PACKET PO ONE (11:00)
[2020-10-09] MEDS: CEFTRIAXONE 2 GM in DEXTROSE 5%-WATER 100 ML IVPB SCH (12:25)
[2020-10-09] MEDS: LOPERAMIDE HCL 2 MG CAPSULE PO PRN (20:02)
[2020-10-09] MEDS: LIDOCAINE PATCH REMOVAL MC SCH (21:47)
[2020-10-09 22:35] VITALS: BP 153/78; PULSE 64
== END 2020-10-10 00:42 | disposition home or self-care (01) | DRG 638 ==
LOC: JER 10:28 → JERBED 14:36 → J6S 17:09
PROVIDERS: ADMIT Student in an Organized Health Care Education/Training Program; ATTEND Nurse Practitioner Family
PROC: 30233N1 Transfusion of Nonautologous Red Blood Cells into Peripheral Vein, Percutaneous Approach (ICD-10-PCS; 2020-10-03)
PROC: 02HV33Z Insertion of Infusion Device into Superior Vena Cava, Percutaneous Approach (ICD-10-PCS; principal; 2020-10-09)
PROC: B548ZZA Ultrasonography of Superior Vena Cava, Guidance (ICD-10-PCS; 2020-10-09)
DX: E11.621 Type 2 diabetes mellitus with foot ulcer (principal); M86.8X7 Other osteomyelitis, ankle and foot; E11.69 Type 2 diabetes mellitus with other specified complication; D64.9 Anemia, unspecified; E11.22 Type 2 diabetes mellitus with diabetic chronic kidney disease; I12.9 Hypertensive chronic kidney disease with stage 1 through stage 4 chronic kidney disease, or unspecified chronic kidney disease; N18.9 Chronic kidney disease, unspecified; D50.9 Iron deficiency anemia, unspecified; E11.40 Type 2 diabetes mellitus with diabetic neuropathy, unspecified; E11.51 Type 2 diabetes mellitus with diabetic peripheral angiopathy without gangrene; E87.5 Hyperkalemia; Z89.421 Acquired absence of other right toe(s); E66.9 Obesity, unspecified; R19.7 Diarrhea, unspecified; L97.519 Non-pressure chronic ulcer of other part of right foot with unspecified severity; Z68.30 Body mass index [BMI] 30.0-30.9, adult; Z79.4 Long term (current) use of insulin
CPT/HCPCS: 36415; 36430; 36558; 72148-TC; 73610-TC-RT-FY; 73630-TC-RT-FY; 73718-TC-RT; 77001-TC-FY; 80048; 80053; 82272; 82607; 82728; 82746; 82962; 82977; 83010; 83036; 83540; 83550; 83615; 83735; 84100; 84132; 85025; 85027; 85045; 85610; 85651; 85730; 86140; 86850; 86900; 86901; 86922; 87040; 87070; 87205; 87324; 87449; 93005; 93010; 97116-GP; 97162-GP; 99291; C1751; C9803; G0463-25; J1644; P9058; U0003; U0005

== ENCOUNTER 2020-10-12 01:50 | Inpatient (IN) | payer OTHER ==
[2020-10-12 04:31] LABS: BASO % 0.3 % (0-2.0); EOS % 0.3 % (0-4.5); LYMPH % 5.4 % (8-40); MEAN PLT VOLUME 8.2 fl (7.5-11.1); MONO % 3.3 % (3.8-10.2); NEUT % 90.7 % (42.8-82.8); PLATELET COUNT 212 10^3/uL (134-434); RBC 2.68 M/mm3 (3.60-5.2); RDW 17.8 % (11.6-15.6); WHITE BLOOD COUNT 13.4 K/mm3 (4.0-10.0)
[2020-10-12 04:37] LABS: HEMOGLOBIN 6.7 GM/dL (10.7-15.3)
[2020-10-12 04:49] LABS: CHLORIDE 112 mmol/L (98-107); SODIUM 138 mmol/L (136-145)
[2020-10-12 04:51] LABS: CALCIUM 7.8 mg/dL (8.5-10.1)
[2020-10-12 04:52] LABS: ALBUMIN 1.7 g/dl (3.4-5.0); BLOOD UREA NITROGEN 74.5 mg/dL (7-18); CO2 18 mmol/L (21-32); GLUCOSE,RANDOM 173 mg/dL (74-106)
[2020-10-12 04:55] LABS: CREATININE 2.8 mg/dL (0.55-1.3); SGOT/AST 88 U/L (15-37); SGPT/ALT 77 U/L (13-61)
[2020-10-12 04:57] LABS: BILIRUBIN,TOTAL 0.2 mg/dL (0.2-1); TOT PROT 6.9 g/dl (6.4-8.2)
[2020-10-12 04:58] LABS: ALK PHOS 219 U/L (45-117)
[2020-10-12 05:36] LABS: ANION GAP 7 MMOL/L (8-16)
[2020-10-12 07:52] LABS: INR 1.06 (0.83-1.09); PROTHROMBIN TIME (PATIENT) 12.8 SEC (9.7-13.0)
[2020-10-12 07:55] LABS: ACTIVATED PTT 36.9 SECONDS (25.2-36.5)
[2020-10-12] MEDS ORDERED: SODIUM CHLORIDE 1,000 ML IV STA ×2 (08:06→10:22)
[2020-10-12 08:08] LABS: ALBUMIN 1.7 g/dl (3.4-5.0); BLOOD UREA NITROGEN 71.1 mg/dL (7-18); CALCIUM 7.7 mg/dL (8.5-10.1)
[2020-10-12 08:13] LABS: BILIRUBIN,TOTAL 0.2 mg/dL (0.2-1); TOT PROT 6.6 g/dl (6.4-8.2)
[2020-10-12 11:50] LABS: ARTERIAL BLD GAS O2 SATURATION 98.3 mmHg (95-98); ARTERIAL BLOOD GAS BASE EXCESS -10.5 mmol/L (-2-2); ARTERIAL BLOOD GAS PO2 140.3 mmHg (80-100); ARTERIAL BLOOD GAS pH 7.224 (7.350-7.450)
[2020-10-12 11:51] LABS: ALLENS TEST POSITIVE
[2020-10-12 12:33] LABS: EPI CELLS >36 /uL (0-25.1); HYALINE CASTS 10 /uL (0-3.1); URINE APPEARANCE CLOUDY; URINE BACTERIA 3 /uL (0-1359); URINE BILIRUBIN NEGATIVE (NEGATIVE); URINE COLOR YELLOW; URINE GLUCOSE (UA) 1+ (NEGATIVE); URINE KETONE NEGATIVE (NEGATIVE); URINE LEUK ESTERASE TRACE (NEGATIVE); URINE NITRITE NEGATIVE (NEGATIVE); URINE PROTEIN 3+ (NEGATIVE); URINE RBC 9 /uL (0-23.9); URINE UROBILINOGEN 0.2 mg/dL (0.2-1.0); URINE WBC 123 /uL (0-25.8)
[2020-10-12] MEDS: SODIUM CHLORIDE 1,000 ML IV SCH (13:26)
[2020-10-12] MEDS ORDERED: VANCOMYCIN 1 GM in D5W (PRE-DOCKED) 1,000 MG/250 ML IVPB ONE (15:15)
[2020-10-12] MEDS ORDERED: PIPERACILLIN/TAZOB 3.375 GM 3.375 GM in DEXTROSE 5%-WATER - 50 ML IVPB SCH (15:15)
[2020-10-12] MEDS ORDERED: DEXTROSE 5%-WATER - 50 ML IVPB ONE ×2 (15:20→21:27)
[2020-10-12] MEDS ORDERED: PIPERACILLIN/TAZOBACTAM 3.375 GM VIAL IVPB ONE ×2 (15:20→21:27)
[2020-10-12] MEDS ORDERED: DEXTROSE 5%-WATER - 1,000 ML with SODIUM BICARBONATE 8.4% - 150 MEQ IV SCH (15:30)
[2020-10-12] MEDS ORDERED: DEXTROSE 5%-WATER - 950 ML with SODIUM BICARBONATE 8.4% - 150 MEQ IV SCH (15:34)
[2020-10-12] MEDS: PIPERACILLIN/TAZOB 3.375 GM 3.375 GM in DEXTROSE 5%-WATER - 50 ML IVPB SCH ×2 (15:45→21:31)
[2020-10-12] MEDS: DEXTROSE 5%-WATER - 950 ML with SODIUM BICARBONATE 8.4% - 150 MEQ IV SCH (16:29)
[2020-10-12 16:55] LABS: BASO % 0.5 % (0-2.0); EOS % 0.3 % (0-4.5); HEMOGLOBIN 8.1 GM/dL (10.7-15.3); LYMPH % 5.8 % (8-40); MCHC 32.3 g/dl (32.0-36.0); MEAN CELL VOLUME 80.4 fl (80-96); MEAN PLT VOLUME 8.2 fl (7.5-11.1); MONO % 2.5 % (3.8-10.2); NEUT % 90.9 % (42.8-82.8); PLATELET COUNT 191 10^3/uL (134-434); RBC 3.12 M/mm3 (3.60-5.2); WHITE BLOOD COUNT 12.2 K/mm3 (4.0-10.0)
[2020-10-12 17:15] LABS: ALBUMIN 1.6 g/dl (3.4-5.0); CALCIUM 7.4 mg/dL (8.5-10.1)
[2020-10-12 17:16] LABS: BLOOD UREA NITROGEN 71.7 mg/dL (7-18); MAGNESIUM 2.3 mg/dL (1.8-2.4)
[2020-10-12 17:19] LABS: PHOSPHOROUS 6.7 mg/dL (2.5-4.9)
[2020-10-12 17:20] LABS: BILIRUBIN,TOTAL 0.3 mg/dL (0.2-1); TOT PROT 6.2 g/dl (6.4-8.2)
[2020-10-12] MEDS: INSULIN SLIDING SCALE (NOVOLOG) 1 VIAL SQ SCH ×2 (17:29→22:16)
[2020-10-12] MEDS ORDERED: CALCIUM GLUCONATE 10% - 1,000 MG/10 ML VIAL IVPUSH ONE (18:45)
[2020-10-12] MEDS ORDERED: DEXTROSE 50%-WATER - 25 GM/50 ML VIAL IVPUSH ONE (18:45)
[2020-10-12] MEDS ORDERED: INSULIN REGULAR HUMAN 100 UNITS/ML *VIAL IVPUSH ONE (18:46)
[2020-10-12] MEDS ORDERED: SODIUM ZIRCONIUM CYCLOSILICATE (LOKELMA) 5 GM PACKET PO SCH (18:47)
[2020-10-12] MEDS ORDERED: DEXTROSE 50%-WATER - 25 GM/50 ML VIAL ONE (18:57)
[2020-10-12] MEDS: CHLORHEXIDINE GLUCONATE 4% CLEANSER FOR DECOLONIZATION TP SCH (22:17)
[2020-10-12] MEDS: MUPIROCIN 2% TOPICAL OINTMENT FOR DECOLONIZATION NS SCH (22:17)
[2020-10-13 00:46] LABS: ARTERIAL BLD GAS O2 SATURATION 90.6 mmHg (95-98); ARTERIAL BLOOD GAS BASE EXCESS -9.1 mmol/L (-2-2); ARTERIAL BLOOD GAS pH 7.245 (7.350-7.450)
[2020-10-13 00:47] LABS: ALLENS TEST POSITIVE
[2020-10-13 02:32] LABS: CREATININE, URINE RANDOM 75.5 mg/dL (30-150)
[2020-10-13 03:18] LABS: ALBUMIN 1.6 g/dl (3.4-5.0); BLOOD UREA NITROGEN 69.6 mg/dL (7-18); CALCIUM 7.8 mg/dL (8.5-10.1)
[2020-10-13 03:22] LABS: CREATININE 3.2 mg/dL (0.55-1.3)
[2020-10-13 03:23] LABS: BILIRUBIN,TOTAL 0.2 mg/dL (0.2-1); TOT PROT 6.5 g/dl (6.4-8.2)
[2020-10-13] MEDS ORDERED: DEXTROSE 5%-WATER - 50 ML IVPB ONE ×2 (03:35→17:06)
[2020-10-13] MEDS ORDERED: PIPERACILLIN/TAZOBACTAM 3.375 GM VIAL IVPB ONE (03:35)
[2020-10-13] MEDS: PIPERACILLIN/TAZOB 3.375 GM 3.375 GM in DEXTROSE 5%-WATER - 50 ML IVPB SCH (03:42)
[2020-10-13] MEDS: INSULIN SLIDING SCALE (NOVOLOG) 1 VIAL SQ SCH ×4 (03:55→21:30)
[2020-10-13] MEDS ORDERED: INSULIN REGULAR HUMAN 100 UNITS/ML *VIAL IVPUSH ONE (05:31)
[2020-10-13] MEDS ORDERED: DEXTROSE 50%-WATER - 25 GM/50 ML VIAL IVPUSH ONE (05:31)
[2020-10-13] MEDS ORDERED: CALCIUM GLUCONATE 10% - 1,000 MG/10 ML VIAL IVPUSH ONE (05:35)
[2020-10-13 07:31] LABS: INR 1.12 (0.83-1.09); PROTHROMBIN TIME (PATIENT) 13.5 SEC (9.7-13.0)
[2020-10-13 07:34] LABS: ACTIVATED PTT 36.5 SECONDS (25.2-36.5)
[2020-10-13 07:35] LABS: BASO % 0.4 % (0-2.0); EOS % 1.2 % (0-4.5); HEMATOCRIT 24.9 % (32.4-45.2); LYMPH % 9.9 % (8-40); MCH 25.7 pg (25.7-33.7); MCHC 32.3 g/dl (32.0-36.0); MEAN CELL VOLUME 79.8 fl (80-96); MEAN PLT VOLUME 9.1 fl (7.5-11.1); NEUT % 85.5 % (42.8-82.8); PLATELET COUNT 258 10^3/uL (134-434); RBC 3.12 M/mm3 (3.60-5.2); RDW 18.4 % (11.6-15.6); WHITE BLOOD COUNT 17.6 K/mm3 (4.0-10.0)
[2020-10-13 07:49] LABS: CALCIUM 7.8 mg/dL (8.5-10.1)
[2020-10-13 07:50] LABS: ALBUMIN 1.6 g/dl (3.4-5.0); BLOOD UREA NITROGEN 73.6 mg/dL (7-18); MAGNESIUM 2.2 mg/dL (1.8-2.4)
[2020-10-13 07:53] LABS: CREATININE 3.2 mg/dL (0.55-1.3); PHOSPHOROUS 6.7 mg/dL (2.5-4.9)
[2020-10-13 07:54] LABS: BILIRUBIN,TOTAL 0.4 mg/dL (0.2-1)
[2020-10-13 07:55] LABS: TOT PROT 6.5 g/dl (6.4-8.2)
[2020-10-13] MEDS: SODIUM ZIRCONIUM CYCLOSILICATE (LOKELMA) 5 GM PACKET PO SCH ×2 (08:55→21:30)
[2020-10-13] MEDS ORDERED: ACETAMINOPHEN 325 MG TABLET (FP) PO PRN (09:59)
[2020-10-13 12:45] LABS: ALBUMIN 1.5 g/dl (3.4-5.0); BLOOD UREA NITROGEN 76.7 mg/dL (7-18)
[2020-10-13 12:48] LABS: CREATININE 3.3 mg/dL (0.55-1.3)
[2020-10-13 12:49] LABS: BILIRUBIN,TOTAL 0.2 mg/dL (0.2-1); TOT PROT 6.1 g/dl (6.4-8.2)
[2020-10-13] MEDS: SODIUM CHLORIDE 1,000 ML IV SCH ×2 (15:00→23:52)
[2020-10-13] MEDS ORDERED: PIPERACILLIN/TAZOBACTAM 2.25 GM VIAL IVPB ONE (17:06)
[2020-10-13] MEDS: PIPERACILLIN/TAZOB 2.25 GM 2.25 GM in DEXTROSE 5%-WATER - 50 ML IVPB SCH ×2 (17:09→19:19)
[2020-10-13] MEDS: MUPIROCIN 2% TOPICAL OINTMENT FOR DECOLONIZATION NS SCH ×2 (19:36→21:18)
[2020-10-13] MEDS: CALCIUM ACETATE/AL SULFATE TOP 1.9 GM/PACKET PACKET TP SCH (20:34)
[2020-10-13] MEDS: DEXTROSE 5%-WATER - 950 ML with SODIUM BICARBONATE 8.4% - 150 MEQ IV SCH (20:47)
[2020-10-13] MEDS: VANCOMYCIN 1 GM in D5W (PRE-DOCKED) 1,000 MG/250 ML IVPB SCH ×2 (20:47→20:48)
[2020-10-13] MEDS: CHLORHEXIDINE GLUCONATE 4% CLEANSER FOR DECOLONIZATION TP SCH (21:18)
[2020-10-13 22:58] LABS: EPI CELLS >36 /uL (0-25.1); HYALINE CASTS 57 /uL (0-3.1); URINE APPEARANCE TURBID; URINE BILIRUBIN NEGATIVE (NEGATIVE); URINE COLOR YELLOW; URINE GLUCOSE (UA) TRACE (NEGATIVE); URINE KETONE NEGATIVE (NEGATIVE); URINE LEUK ESTERASE 2+ (NEGATIVE); URINE NITRITE NEGATIVE (NEGATIVE); URINE PROTEIN 3+ (NEGATIVE); URINE RBC 53 /uL (0-23.9); URINE UROBILINOGEN 0.2 mg/dL (0.2-1.0); URINE WBC 934 /uL (0-25.8)
[2020-10-13 23:39] LABS: URINE BACTERIA 24.2 /uL (0-1359); YEAST NONE SEEN (NEGATIVE)
[2020-10-14] MEDS ORDERED: PIPERACILLIN/TAZOBACTAM 2.25 GM VIAL IVPB ONE ×3 (01:41→16:42)
[2020-10-14] MEDS ORDERED: DEXTROSE 5%-WATER - 50 ML IVPB ONE ×3 (01:42→16:42)
[2020-10-14] MEDS: PIPERACILLIN/TAZOB 2.25 GM 2.25 GM in DEXTROSE 5%-WATER - 50 ML IVPB SCH ×3 (02:17→17:03)
[2020-10-14] MEDS: ACETAMINOPHEN 325 MG TABLET (FP) PO PRN (02:18)
[2020-10-14] MEDS: INSULIN SLIDING SCALE (NOVOLOG) 1 VIAL SQ SCH ×4 (04:32→20:50)
[2020-10-14 06:26] LABS: ARTERIAL BLD GAS O2 SATURATION 93.1 mmHg (95-98); ARTERIAL BLOOD GAS BASE EXCESS -7.7 mmol/L (-2-2); ARTERIAL BLOOD GAS PO2 71.7 mmHg (80-100); ARTERIAL BLOOD GAS pH 7.303 (7.350-7.450)
[2020-10-14 06:35] LABS: ALLENS TEST POSITIVE
[2020-10-14] MEDS: SODIUM CHLORIDE 1,000 ML IV SCH (06:41)
[2020-10-14 07:06] LABS: BASO % 0.6 % (0-2.0); EOS % 2.8 % (0-4.5); HEMATOCRIT 23.2 % (32.4-45.2); HEMOGLOBIN 7.8 GM/dL (10.7-15.3); LYMPH % 6.4 % (8-40); MCH 26.5 pg (25.7-33.7); MCHC 33.5 g/dl (32.0-36.0); MEAN CELL VOLUME 79.1 fl (80-96); MEAN PLT VOLUME 8.2 fl (7.5-11.1); MONO % 5.9 % (3.8-10.2); NEUT % 84.3 % (42.8-82.8); PLATELET COUNT 244 10^3/uL (134-434); RBC 2.93 M/mm3 (3.60-5.2); RDW 18.8 % (11.6-15.6); WHITE BLOOD COUNT 13.4 K/mm3 (4.0-10.0)
[2020-10-14 07:28] LABS: CALCIUM 8.1 mg/dL (8.5-10.1)
[2020-10-14 07:29] LABS: ALBUMIN 1.6 g/dl (3.4-5.0); BLOOD UREA NITROGEN 67.9 mg/dL (7-18); MAGNESIUM 2.2 mg/dL (1.8-2.4)
[2020-10-14 07:32] LABS: CREATININE 3.4 mg/dL (0.55-1.3); PHOSPHOROUS 6.4 mg/dL (2.5-4.9)
[2020-10-14 07:33] LABS: BILIRUBIN,TOTAL 0.2 mg/dL (0.2-1)
[2020-10-14 07:34] LABS: TOT PROT 6.5 g/dl (6.4-8.2)
[2020-10-14] MEDS ORDERED: PT OWN MED DRAWER 7, Y5N ONE ×3 (08:26→11:11)
[2020-10-14] MEDS ORDERED: SODIUM ZIRCONIUM CYCLOSILICATE (LOKELMA) 5 GM PACKET PO SCH (10:00)
[2020-10-14] MEDS ORDERED: MUPIROCIN 2% TOPICAL OINTMENT FOR DECOLONIZATION NS SCH (10:00)
[2020-10-14] MEDS: CALCIUM ACETATE/AL SULFATE TOP 1.9 GM/PACKET PACKET TP SCH (11:24)
[2020-10-14 14:28] VITALS: BMI 37.5
[2020-10-14] MEDS: ALBUTEROL SO4 2.5/IPRATROPIUM 0.5 INH SOL 3 ML VIAL.NEB. NEB SCH ×2 (16:17→19:50)
[2020-10-14] MEDS ORDERED: CHLORHEXIDINE GLUCONATE 4% CLEANSER FOR DECOLONIZATION TP SCH (22:00)
[2020-10-15] MEDS ORDERED: DEXTROSE 5%-WATER - 50 ML IVPB ONE ×3 (01:37→17:32)
[2020-10-15] MEDS ORDERED: PIPERACILLIN/TAZOBACTAM 2.25 GM VIAL IVPB ONE ×3 (01:37→17:32)
[2020-10-15] MEDS: PIPERACILLIN/TAZOB 2.25 GM 2.25 GM in DEXTROSE 5%-WATER - 50 ML IVPB SCH ×3 (03:19→17:58)
[2020-10-15] MEDS: INSULIN SLIDING SCALE (NOVOLOG) 1 VIAL SQ SCH ×4 (04:13→22:06)
[2020-10-15] MEDS: ALBUTEROL SO4 2.5/IPRATROPIUM 0.5 INH SOL 3 ML VIAL.NEB. NEB SCH ×4 (07:43→20:04)
[2020-10-15 08:11] LABS: BASO % 0.5 % (0-2.0); EOS % 2.2 % (0-4.5); HEMATOCRIT 23.2 % (32.4-45.2); HEMOGLOBIN 7.8 GM/dL (10.7-15.3); LYMPH % 9.8 % (8-40); MCH 26.6 pg (25.7-33.7); MCHC 33.5 g/dl (32.0-36.0); MEAN CELL VOLUME 79.3 fl (80-96); MEAN PLT VOLUME 7.8 fl (7.5-11.1); MONO % 4.3 % (3.8-10.2); NEUT % 83.2 % (42.8-82.8); PLATELET COUNT 246 10^3/uL (134-434); RBC 2.93 M/mm3 (3.60-5.2); RDW 18.8 % (11.6-15.6); WHITE BLOOD COUNT 10.9 K/mm3 (4.0-10.0)
[2020-10-15 08:36] LABS: BLOOD UREA NITROGEN 73.6 mg/dL (7-18); CALCIUM 8.4 mg/dL (8.5-10.1)
[2020-10-15 08:37] LABS: MAGNESIUM 2.3 mg/dL (1.8-2.4)
[2020-10-15 08:38] LABS: ALBUMIN 1.6 g/dl (3.4-5.0)
[2020-10-15 08:40] LABS: CREATININE 3.4 mg/dL (0.55-1.3); PHOSPHOROUS 7.3 mg/dL (2.5-4.9)
[2020-10-15 08:41] LABS: TOT PROT 6.8 g/dl (6.4-8.2)
[2020-10-15 08:43] LABS: BILIRUBIN,TOTAL 0.5 mg/dL (0.2-1)
[2020-10-15] MEDS ORDERED: PT OWN MED DRAWER 7, Y5N ONE ×3 (09:53→11:58)
[2020-10-15] MEDS: LACTOBACILLUS ACIDOPHILUS 1 TABLET PO SCH (09:58)
[2020-10-15] MEDS: SODIUM ZIRCONIUM CYCLOSILICATE (LOKELMA) 5 GM PACKET PO SCH (09:59)
[2020-10-15 10:03] LABS: EPI CELLS >36 /uL (0-25.1); HYALINE CASTS 35 /uL (0-3.1); PH,URINE 5.5 (5.0-8.0); URINE APPEARANCE TURBID; URINE BACTERIA 25 /uL (0-1359); URINE BILIRUBIN NEGATIVE (NEGATIVE); URINE COLOR YELLOW; URINE GLUCOSE (UA) 1+ (NEGATIVE); URINE KETONE NEGATIVE (NEGATIVE); URINE LEUK ESTERASE 2+ (NEGATIVE); URINE NITRITE NEGATIVE (NEGATIVE); URINE PROTEIN 3+ (NEGATIVE); URINE UROBILINOGEN 0.2 mg/dL (0.2-1.0); URINE WBC 398 /uL (0-25.8)
[2020-10-15 10:08] LABS: URINE RBC 194.6 /uL (0-23.9)
[2020-10-15 10:20] LABS: YEAST NON SEEN (NEGATIVE)
[2020-10-15] MEDS: FUROSEMIDE 40 MG TABLET (FP) PO SCH (12:04)
[2020-10-15] MEDS: CALCIUM ACETATE/AL SULFATE TOP 1.9 GM/PACKET PACKET TP SCH (12:04)
[2020-10-15] MEDS: GABAPENTIN 100 MG CAPSULE PO SCH ×2 (14:49→22:05)
[2020-10-15] MEDS ORDERED: SODIUM CHLORIDE 1,000 ML IV SCH (16:15)
[2020-10-15] MEDS ORDERED: MELATONIN 5 MG TABLETS PO ONE (20:00)
[2020-10-15] MEDS: MELATONIN 5 MG TABLETS PO PRN (22:05)
[2020-10-16] MEDS ORDERED: DEXTROSE 5%-WATER - 50 ML IVPB ONE ×3 (01:12→17:06)
[2020-10-16] MEDS ORDERED: PIPERACILLIN/TAZOBACTAM 2.25 GM VIAL IVPB ONE ×3 (01:12→17:06)
[2020-10-16] MEDS: PIPERACILLIN/TAZOB 2.25 GM 2.25 GM in DEXTROSE 5%-WATER - 50 ML IVPB SCH ×3 (01:24→17:27)
[2020-10-16] MEDS: PANTOPRAZOLE 40 MG TABLET PO SCH (01:25)
[2020-10-16] MEDS: ACETAMINOPHEN 325 MG TABLET (FP) PO PRN (04:56)
[2020-10-16] MEDS: GABAPENTIN 100 MG CAPSULE PO SCH ×3 (05:09→21:53)
[2020-10-16 06:57] LABS: HEMATOCRIT 23.4 % (32.4-45.2); HEMOGLOBIN 7.8 GM/dL (10.7-15.3); MCH 26.3 pg (25.7-33.7); MCHC 33.2 g/dl (32.0-36.0); MEAN CELL VOLUME 79.2 fl (80-96); MEAN PLT VOLUME 7.8 fl (7.5-11.1); PLATELET COUNT 228 10^3/uL (134-434); RBC 2.95 M/mm3 (3.60-5.2); RDW 18.8 % (11.6-15.6); WHITE BLOOD COUNT 8.6 K/mm3 (4.0-10.0)
[2020-10-16 07:01] LABS: INR 1.04 (0.83-1.09); PROTHROMBIN TIME (PATIENT) 12.6 SEC (9.7-13.0)
[2020-10-16] MEDS: INSULIN SLIDING SCALE (NOVOLOG) 1 VIAL SQ SCH ×4 (07:08→21:54)
[2020-10-16 07:23] LABS: BLOOD UREA NITROGEN 69.5 mg/dL (7-18); CALCIUM 8.6 mg/dL (8.5-10.1)
[2020-10-16 07:24] LABS: MAGNESIUM 2.1 mg/dL (1.8-2.4)
[2020-10-16 07:27] LABS: CREATININE 3.4 mg/dL (0.55-1.3); PHOSPHOROUS 7.2 mg/dL (2.5-4.9)
[2020-10-16] MEDS: ALBUTEROL SO4 2.5/IPRATROPIUM 0.5 INH SOL 3 ML VIAL.NEB. NEB SCH ×4 (07:36→20:04)
[2020-10-16 11:39] LABS: ANISOCYTOSIS 2+; MACROCYTOSIS 0; PLATELET ESTIMATE NORMAL
[2020-10-16] MEDS: LACTOBACILLUS ACIDOPHILUS 1 TABLET PO SCH (11:52)
[2020-10-16] MEDS: FUROSEMIDE 40 MG TABLET (FP) PO SCH (11:53)
[2020-10-16] MEDS: INSULIN (LEVEMIR) 100 UNITS/ML UNITS SQ SCH (12:01)
[2020-10-16] MEDS: CALCIUM ACETATE/AL SULFATE TOP 1.9 GM/PACKET PACKET TP SCH (12:02)
[2020-10-16] MEDS: SODIUM ZIRCONIUM CYCLOSILICATE (LOKELMA) 5 GM PACKET PO SCH (12:02)
[2020-10-16] MEDS: DAPTOMYCIN 360 MG in SODIUM CHLORIDE 50 ML IVPB SCH (14:16)
[2020-10-17] MEDS ORDERED: PIPERACILLIN/TAZOBACTAM 2.25 GM VIAL IVPB ONE ×3 (01:10→16:26)
[2020-10-17] MEDS ORDERED: DEXTROSE 5%-WATER - 50 ML IVPB ONE ×3 (01:11→16:27)
[2020-10-17] MEDS: PIPERACILLIN/TAZOB 2.25 GM 2.25 GM in DEXTROSE 5%-WATER - 50 ML IVPB SCH ×3 (01:27→17:25)
[2020-10-17] MEDS: ACETAMINOPHEN 325 MG TABLET (FP) PO PRN ×2 (01:52→11:40)
[2020-10-17] MEDS: GABAPENTIN 100 MG CAPSULE PO SCH ×3 (06:04→22:32)
[2020-10-17] MEDS: INSULIN SLIDING SCALE (NOVOLOG) 1 VIAL SQ SCH ×4 (06:11→22:41)
[2020-10-17 07:26] LABS: BASO % 0.6 % (0-2.0); EOS % 5.6 % (0-4.5); HEMATOCRIT 24.9 % (32.4-45.2); HEMOGLOBIN 8.2 GM/dL (10.7-15.3); LYMPH % 11.2 % (8-40); MCH 26.1 pg (25.7-33.7); MCHC 33.1 g/dl (32.0-36.0); MEAN CELL VOLUME 79.1 fl (80-96); MEAN PLT VOLUME 7.8 fl (7.5-11.1); MONO % 9.7 % (3.8-10.2); NEUT % 72.9 % (42.8-82.8); PLATELET COUNT 239 10^3/uL (134-434); RBC 3.14 M/mm3 (3.60-5.2); RDW 18.9 % (11.6-15.6); WHITE BLOOD COUNT 8.4 K/mm3 (4.0-10.0)
[2020-10-17 07:45] LABS: CALCIUM 8.6 mg/dL (8.5-10.1)
[2020-10-17 07:46] LABS: ALBUMIN 1.7 g/dl (3.4-5.0); BLOOD UREA NITROGEN 68.4 mg/dL (7-18); MAGNESIUM 2.3 mg/dL (1.8-2.4)
[2020-10-17 07:49] LABS: CREATININE 3.3 mg/dL (0.55-1.3); PHOSPHOROUS 6.4 mg/dL (2.5-4.9)
[2020-10-17 07:50] LABS: BILIRUBIN,TOTAL 0.4 mg/dL (0.2-1); TOT PROT 7.2 g/dl (6.4-8.2)
[2020-10-17] MEDS: ALBUTEROL SO4 2.5/IPRATROPIUM 0.5 INH SOL 3 ML VIAL.NEB. NEB SCH ×4 (08:00→20:24)
[2020-10-17] MEDS ORDERED: PT OWN MED DRAWER 7, Y5N ONE (09:12)
[2020-10-17] MEDS: FUROSEMIDE 40 MG TABLET (FP) PO SCH (09:55)
[2020-10-17] MEDS: LACTOBACILLUS ACIDOPHILUS 1 TABLET PO SCH (09:55)
[2020-10-17] MEDS: PANTOPRAZOLE 40 MG TABLET PO SCH (09:55)
[2020-10-17] MEDS: SODIUM ZIRCONIUM CYCLOSILICATE (LOKELMA) 5 GM PACKET PO SCH (09:57)
[2020-10-17] MEDS: INSULIN (LEVEMIR) 100 UNITS/ML UNITS SQ SCH (10:04)
[2020-10-17] MEDS: CALCIUM ACETATE/AL SULFATE TOP 1.9 GM/PACKET PACKET TP SCH (11:40)
[2020-10-17] MEDS ORDERED: amLODIPine BESYLATE 5 MG TABLET (FP) PO SCH (19:00)
[2020-10-17] MEDS: amLODIPine BESYLATE 10 MG TABLET (FP) PO SCH (19:33)
[2020-10-17] MEDS: TIMOLOL 0.5% OPHTHALMIC SOL 5 ML BOTTLE OU SCH (22:29)
[2020-10-18] MEDS ORDERED: DEXTROSE 5%-WATER - 50 ML IVPB ONE ×3 (01:20→12:52)
[2020-10-18] MEDS ORDERED: PIPERACILLIN/TAZOBACTAM 2.25 GM VIAL IVPB ONE ×3 (01:20→12:51)
[2020-10-18] MEDS: PIPERACILLIN/TAZOB 2.25 GM 2.25 GM in DEXTROSE 5%-WATER - 50 ML IVPB SCH ×3 (02:10→17:29)
[2020-10-18] MEDS: GABAPENTIN 100 MG CAPSULE PO SCH ×3 (06:09→21:09)
[2020-10-18] MEDS: INSULIN SLIDING SCALE (NOVOLOG) 1 VIAL SQ SCH ×4 (06:42→21:15)
[2020-10-18] MEDS: ALBUTEROL SO4 2.5/IPRATROPIUM 0.5 INH SOL 3 ML VIAL.NEB. NEB SCH ×4 (07:10→20:22)
[2020-10-18 08:20] LABS: ALBUMIN 1.6 g/dl (3.4-5.0); BLOOD UREA NITROGEN 71.4 mg/dL (7-18); CALCIUM 8.2 mg/dL (8.5-10.1); MAGNESIUM 2.2 mg/dL (1.8-2.4)
[2020-10-18 08:23] LABS: CREATININE 3.4 mg/dL (0.55-1.3); PHOSPHOROUS 7.1 mg/dL (2.5-4.9)
[2020-10-18 08:25] LABS: BILIRUBIN,TOTAL 0.4 mg/dL (0.2-1); TOT PROT 6.9 g/dl (6.4-8.2)
[2020-10-18 08:31] LABS: HEMATOCRIT 24.4 % (32.4-45.2); HEMOGLOBIN 7.8 GM/dL (10.7-15.3); MCH 25.7 pg (25.7-33.7); MCHC 31.9 g/dl (32.0-36.0); MEAN CELL VOLUME 80.5 fl (80-96); MEAN PLT VOLUME 7.8 fl (7.5-11.1); PLATELET COUNT 218 10^3/uL (134-434); RBC 3.02 M/mm3 (3.60-5.2); RDW 18.9 % (11.6-15.6); WHITE BLOOD COUNT 8.6 K/mm3 (4.0-10.0)
[2020-10-18] MEDS ORDERED: PT OWN MED DRAWER 7, Y5N ONE (08:31)
[2020-10-18] MEDS: INSULIN (LEVEMIR) 100 UNITS/ML UNITS SQ SCH (09:41)
[2020-10-18] MEDS: LACTOBACILLUS ACIDOPHILUS 1 TABLET PO SCH (09:41)
[2020-10-18] MEDS: PANTOPRAZOLE 40 MG TABLET PO SCH (09:41)
[2020-10-18] MEDS: FUROSEMIDE 40 MG TABLET (FP) PO SCH (09:41)
[2020-10-18] MEDS: amLODIPine BESYLATE 10 MG TABLET (FP) PO SCH (09:41)
[2020-10-18] MEDS: TIMOLOL 0.5% OPHTHALMIC SOL 5 ML BOTTLE OU SCH ×2 (09:42→21:15)
[2020-10-18] MEDS: CALCIUM ACETATE/AL SULFATE TOP 1.9 GM/PACKET PACKET TP SCH (09:42)
[2020-10-18] MEDS: SODIUM ZIRCONIUM CYCLOSILICATE (LOKELMA) 5 GM PACKET PO SCH (09:42)
[2020-10-18 10:20] LABS: PLATELET ESTIMATE NORMAL
[2020-10-18] MEDS: SEVELAMER CARBONATE 800 MG TAB (FP) PO SCH ×2 (12:00→17:29)
[2020-10-18] MEDS: DAPTOMYCIN 360 MG in SODIUM CHLORIDE 50 ML IVPB SCH (13:14)
[2020-10-18] MEDS: MELATONIN 5 MG TABLETS PO PRN (21:09)
[2020-10-19] MEDS ORDERED: DEXTROSE 5%-WATER - 50 ML IVPB ONE ×3 (00:50→15:24)
[2020-10-19] MEDS ORDERED: PIPERACILLIN/TAZOBACTAM 2.25 GM VIAL IVPB ONE ×4 (00:50→15:24)
[2020-10-19] MEDS: PIPERACILLIN/TAZOB 2.25 GM 2.25 GM in DEXTROSE 5%-WATER - 50 ML IVPB SCH ×3 (01:08→17:17)
[2020-10-19] MEDS: GABAPENTIN 100 MG CAPSULE PO SCH ×3 (05:40→21:13)
[2020-10-19] MEDS: INSULIN SLIDING SCALE (NOVOLOG) 1 VIAL SQ SCH ×4 (06:04→21:24)
[2020-10-19 07:41] LABS: CALCIUM 7.9 mg/dL (8.5-10.1)
[2020-10-19 07:42] LABS: ALBUMIN 1.7 g/dl (3.4-5.0); BLOOD UREA NITROGEN 78.4 mg/dL (7-18); MAGNESIUM 2.3 mg/dL (1.8-2.4)
[2020-10-19 07:45] LABS: BASO % 0.7 % (0-2.0); CREATININE 3.6 mg/dL (0.55-1.3); HEMATOCRIT 22.8 % (32.4-45.2); HEMOGLOBIN 7.5 GM/dL (10.7-15.3); LYMPH % 16.8 % (8-40); MCH 26.1 pg (25.7-33.7); MCHC 32.8 g/dl (32.0-36.0); MEAN CELL VOLUME 79.6 fl (80-96); MEAN PLT VOLUME 8.2 fl (7.5-11.1); MONO % 5.6 % (3.8-10.2); NEUT % 70.9 % (42.8-82.8); PHOSPHOROUS 6.4 mg/dL (2.5-4.9); PLATELET COUNT 213 10^3/uL (134-434); RBC 2.86 M/mm3 (3.60-5.2); RDW 19.1 % (11.6-15.6); WHITE BLOOD COUNT 7.9 K/mm3 (4.0-10.0)
[2020-10-19] MEDS: ALBUTEROL SO4 2.5/IPRATROPIUM 0.5 INH SOL 3 ML VIAL.NEB. NEB SCH ×2 (07:45→11:40)
[2020-10-19 07:46] LABS: BILIRUBIN,TOTAL 0.3 mg/dL (0.2-1)
[2020-10-19 07:47] LABS: TOT PROT 6.8 g/dl (6.4-8.2)
[2020-10-19] MEDS ORDERED: PT OWN MED DRAWER 7, Y5N ONE (08:35)
[2020-10-19] MEDS: SEVELAMER CARBONATE 800 MG TAB (FP) PO SCH ×3 (08:48→17:17)
[2020-10-19] MEDS: FUROSEMIDE 40 MG TABLET (FP) PO SCH (10:28)
[2020-10-19] MEDS: LACTOBACILLUS ACIDOPHILUS 1 TABLET PO SCH (10:28)
[2020-10-19] MEDS: amLODIPine BESYLATE 10 MG TABLET (FP) PO SCH (10:28)
[2020-10-19] MEDS: PANTOPRAZOLE 40 MG TABLET PO SCH (10:28)
[2020-10-19] MEDS: INSULIN (LEVEMIR) 100 UNITS/ML UNITS SQ SCH (10:28)
[2020-10-19] MEDS: SODIUM ZIRCONIUM CYCLOSILICATE (LOKELMA) 5 GM PACKET PO SCH (10:29)
[2020-10-19] MEDS: CALCIUM ACETATE/AL SULFATE TOP 1.9 GM/PACKET PACKET TP SCH (10:29)
[2020-10-19] MEDS: TIMOLOL 0.5% OPHTHALMIC SOL 5 ML BOTTLE OU SCH ×2 (10:30→21:29)
[2020-10-19] MEDS ORDERED: ALBUTEROL SO4 2.5/IPRATROPIUM 0.5 INH SOL 3 ML VIAL.NEB. NEB ONE (20:35)
[2020-10-19] MEDS ORDERED: ONDANSETRON 4 MG/2 ML VIAL IVPUSH ONE (21:00)
[2020-10-19] MEDS: MELATONIN 5 MG TABLETS PO PRN (21:13)
[2020-10-20] MEDS ORDERED: PIPERACILLIN/TAZOBACTAM 2.25 GM VIAL IVPB ONE ×3 (00:44→18:31)
[2020-10-20] MEDS ORDERED: DEXTROSE 5%-WATER - 50 ML IVPB ONE ×3 (00:44→18:31)
[2020-10-20] MEDS: PIPERACILLIN/TAZOB 2.25 GM 2.25 GM in DEXTROSE 5%-WATER - 50 ML IVPB SCH ×3 (01:31→18:35)
[2020-10-20] MEDS: GABAPENTIN 100 MG CAPSULE PO SCH ×3 (05:41→21:36)
[2020-10-20] MEDS: INSULIN SLIDING SCALE (NOVOLOG) 1 VIAL SQ SCH ×4 (06:32→21:36)
[2020-10-20] MEDS ORDERED: PT OWN MED DRAWER 7, Y5N ONE (08:52)
[2020-10-20] MEDS: SEVELAMER CARBONATE 800 MG TAB (FP) PO SCH ×3 (08:56→17:47)
[2020-10-20] MEDS: LACTOBACILLUS ACIDOPHILUS 1 TABLET PO SCH (09:00)
[2020-10-20] MEDS: PANTOPRAZOLE 40 MG TABLET PO SCH (09:00)
[2020-10-20] MEDS: amLODIPine BESYLATE 10 MG TABLET (FP) PO SCH (09:00)
[2020-10-20] MEDS: FUROSEMIDE 40 MG TABLET (FP) PO SCH (09:01)
[2020-10-20] MEDS: INSULIN (LEVEMIR) 100 UNITS/ML UNITS SQ SCH (09:04)
[2020-10-20] MEDS: CALCIUM ACETATE/AL SULFATE TOP 1.9 GM/PACKET PACKET TP SCH (09:44)
[2020-10-20] MEDS: TIMOLOL 0.5% OPHTHALMIC SOL 5 ML BOTTLE OU SCH ×2 (09:44→21:37)
[2020-10-20 10:43] LABS: BLOOD UREA NITROGEN 75.6 mg/dL (7-18)
[2020-10-20 10:44] LABS: ALBUMIN 1.7 g/dl (3.4-5.0); MAGNESIUM 2.1 mg/dL (1.8-2.4)
[2020-10-20 10:46] LABS: CREATININE 3.9 mg/dL (0.55-1.3)
[2020-10-20 10:47] LABS: PHOSPHOROUS 6.1 mg/dL (2.5-4.9)
[2020-10-20 10:48] LABS: BILIRUBIN,TOTAL 0.2 mg/dL (0.2-1)
[2020-10-20 10:58] LABS: HEMATOCRIT 24.8 % (32.4-45.2); HEMOGLOBIN 8.1 GM/dL (10.7-15.3); MCH 25.9 pg (25.7-33.7); MCHC 32.5 g/dl (32.0-36.0); MEAN CELL VOLUME 79.6 fl (80-96); PLATELET COUNT 201 10^3/uL (134-434); RBC 3.12 M/mm3 (3.60-5.2); WHITE BLOOD COUNT 8.7 K/mm3 (4.0-10.0)
[2020-10-20 11:31] LABS: ANISOCYTOSIS 0; HELMET CELLS 0; HOWELL-JOLLY BODIES 0; MACROCYTOSIS 0; OVALOCYTE 0; PLATELET ESTIMATE NORMAL; ROULEAU 0; SICKELED CELLS 0; TARGET CELLS 0; TEAR DROP CELLS 0; TOXIC GRANULATION 0
[2020-10-20] MEDS: DAPTOMYCIN 360 MG in SODIUM CHLORIDE 50 ML IVPB SCH (17:47)
[2020-10-20] MEDS: MELATONIN 5 MG TABLETS PO PRN (21:36)
[2020-10-21] MEDS ORDERED: DEXTROSE 5%-WATER - 50 ML IVPB ONE ×3 (01:46→14:07)
[2020-10-21] MEDS ORDERED: PIPERACILLIN/TAZOBACTAM 2.25 GM VIAL IVPB ONE ×2 (01:46→09:00)
[2020-10-21] MEDS: PIPERACILLIN/TAZOB 2.25 GM 2.25 GM in DEXTROSE 5%-WATER - 50 ML IVPB SCH ×2 (02:11→11:00)
[2020-10-21 02:30] LABS: URINE APPEARANCE CLOUDY; URINE COLOR YELLOW
[2020-10-21 02:31] LABS: PH,URINE 5.5 (5.0-8.0); URINE BILIRUBIN NEGATIVE (NEGATIVE); URINE GLUCOSE (UA) NEGATIVE (NEGATIVE); URINE KETONE NEGATIVE (NEGATIVE); URINE NITRITE NEGATIVE (NEGATIVE); URINE PROTEIN 300 (NEGATIVE); URINE UROBILINOGEN 0.2 mg/dL (0.2-1.0)
[2020-10-21 02:34] LABS: URINE LEUK ESTERASE 2+ (NEGATIVE)
[2020-10-21] MEDS: INSULIN SLIDING SCALE (NOVOLOG) 1 VIAL SQ SCH ×4 (06:07→21:18)
[2020-10-21] MEDS: GABAPENTIN 100 MG CAPSULE PO SCH ×3 (06:07→21:18)
[2020-10-21 07:21] LABS: BASO % 0.7 % (0-2.0); EOS % 5.5 % (0-4.5); HEMATOCRIT 23.8 % (32.4-45.2); HEMOGLOBIN 7.8 GM/dL (10.7-15.3); LYMPH % 12.2 % (8-40); MCH 26.2 pg (25.7-33.7); MCHC 32.9 g/dl (32.0-36.0); MEAN CELL VOLUME 79.5 fl (80-96); MEAN PLT VOLUME 8.3 fl (7.5-11.1); MONO % 6.3 % (3.8-10.2); NEUT % 75.3 % (42.8-82.8); PLATELET COUNT 178 10^3/uL (134-434); RDW 18.5 % (11.6-15.6); WHITE BLOOD COUNT 7.4 K/mm3 (4.0-10.0)
[2020-10-21 07:40] LABS: ALBUMIN 1.7 g/dl (3.4-5.0); BLOOD UREA NITROGEN 78.8 mg/dL (7-18); MAGNESIUM 2.1 mg/dL (1.8-2.4)
[2020-10-21 07:44] LABS: BILIRUBIN,TOTAL 0.2 mg/dL (0.2-1); CREATININE 4.1 mg/dL (0.55-1.3); PHOSPHOROUS 6.5 mg/dL (2.5-4.9)
[2020-10-21 07:46] LABS: TOT PROT 6.9 g/dl (6.4-8.2)
[2020-10-21] MEDS: SEVELAMER CARBONATE 800 MG TAB (FP) PO SCH ×3 (09:15→17:09)
[2020-10-21] MEDS: amLODIPine BESYLATE 10 MG TABLET (FP) PO SCH (09:15)
[2020-10-21] MEDS: LACTOBACILLUS ACIDOPHILUS 1 TABLET PO SCH (09:15)
[2020-10-21] MEDS: PANTOPRAZOLE 40 MG TABLET PO SCH (09:16)
[2020-10-21] MEDS: TIMOLOL 0.5% OPHTHALMIC SOL 5 ML BOTTLE OU SCH ×2 (09:17→21:19)
[2020-10-21] MEDS ORDERED: PT OWN MED DRAWER 7, Y5N ONE (09:51)
[2020-10-21] MEDS: CALCIUM ACETATE/AL SULFATE TOP 1.9 GM/PACKET PACKET TP SCH (10:05)
[2020-10-21] MEDS: INSULIN (LEVEMIR) 100 UNITS/ML UNITS SQ SCH (10:05)
[2020-10-21] MEDS ORDERED: cefTRIAXone SODIUM 1 GM VIAL ONE (14:07)
[2020-10-21] MEDS: CEFTRIAXONE 1 GM in DEXTROSE 5%-WATER - 50 ML IVPB SCH (14:09)
[2020-10-21] MEDS ORDERED: ONDANSETRON 4 MG/2 ML VIAL IVPUSH PRN (17:31)
[2020-10-22] MEDS: ACETAMINOPHEN 325 MG TABLET (FP) PO PRN ×2 (03:09→23:57)
[2020-10-22] MEDS: GABAPENTIN 100 MG CAPSULE PO SCH ×3 (06:23→21:24)
[2020-10-22] MEDS: INSULIN SLIDING SCALE (NOVOLOG) 1 VIAL SQ SCH ×4 (06:24→21:26)
[2020-10-22 07:40] LABS: BASO % 0.5 % (0-2.0); HEMATOCRIT 23.5 % (32.4-45.2); HEMOGLOBIN 7.7 GM/dL (10.7-15.3); LYMPH % 7.5 % (8-40); MCH 25.9 pg (25.7-33.7); MCHC 32.6 g/dl (32.0-36.0); MEAN CELL VOLUME 79.4 fl (80-96); MEAN PLT VOLUME 8.3 fl (7.5-11.1); MONO % 4.4 % (3.8-10.2); NEUT % 84.6 % (42.8-82.8); PLATELET COUNT 180 10^3/uL (134-434); RBC 2.96 M/mm3 (3.60-5.2); RDW 18.2 % (11.6-15.6); WHITE BLOOD COUNT 9.5 K/mm3 (4.0-10.0)
[2020-10-22 08:03] LABS: ALBUMIN 1.7 g/dl (3.4-5.0)
[2020-10-22 08:05] LABS: BLOOD UREA NITROGEN 74.8 mg/dL (7-18)
[2020-10-22 08:06] LABS: BILIRUBIN,TOTAL 0.2 mg/dL (0.2-1); CREATININE 4.1 mg/dL (0.55-1.3); MAGNESIUM 2.2 mg/dL (1.8-2.4)
[2020-10-22 08:08] LABS: PHOSPHOROUS 6.2 mg/dL (2.5-4.9)
[2020-10-22] MEDS ORDERED: cefTRIAXone SODIUM 1 GM VIAL ONE (09:57)
[2020-10-22] MEDS ORDERED: DEXTROSE 5%-WATER - 50 ML IVPB ONE (09:57)
[2020-10-22] MEDS: SEVELAMER CARBONATE 800 MG TAB (FP) PO SCH ×3 (10:06→16:56)
[2020-10-22] MEDS: LACTOBACILLUS ACIDOPHILUS 1 TABLET PO SCH (10:06)
[2020-10-22] MEDS: PANTOPRAZOLE 40 MG TABLET PO SCH (10:06)
[2020-10-22] MEDS: amLODIPine BESYLATE 10 MG TABLET (FP) PO SCH (10:06)
[2020-10-22] MEDS: INSULIN (LEVEMIR) 100 UNITS/ML UNITS SQ SCH (10:07)
[2020-10-22] MEDS: CEFTRIAXONE 1 GM in DEXTROSE 5%-WATER - 50 ML IVPB SCH (10:07)
[2020-10-22] MEDS: TIMOLOL 0.5% OPHTHALMIC SOL 5 ML BOTTLE OU SCH ×2 (10:08→21:24)
[2020-10-22] MEDS: CALCIUM ACETATE/AL SULFATE TOP 1.9 GM/PACKET PACKET TP SCH (12:09)
[2020-10-22] MEDS ORDERED: PT OWN MED DRAWER 7, Y5N ONE (14:09)
[2020-10-22] MEDS: DAPTOMYCIN 360 MG in SODIUM CHLORIDE 50 ML IVPB SCH (14:14)
[2020-10-22] MEDS: MELATONIN 5 MG TABLETS PO PRN (21:30)
[2020-10-23] MEDS: GABAPENTIN 100 MG CAPSULE PO SCH ×3 (05:32→22:26)
[2020-10-23] MEDS: INSULIN SLIDING SCALE (NOVOLOG) 1 VIAL SQ SCH ×4 (06:12→22:26)
[2020-10-23 08:07] LABS: BASO % 0.6 % (0-2.0); EOS % 3.6 % (0-4.5); HEMATOCRIT 24.9 % (32.4-45.2); LYMPH % 11.9 % (8-40); MCH 25.7 pg (25.7-33.7); MEAN CELL VOLUME 80.3 fl (80-96); MEAN PLT VOLUME 8.3 fl (7.5-11.1); NEUT % 78.9 % (42.8-82.8); PLATELET COUNT 202 10^3/uL (134-434); RDW 18.8 % (11.6-15.6); WHITE BLOOD COUNT 8.5 K/mm3 (4.0-10.0)
[2020-10-23 08:25] LABS: CALCIUM 7.7 mg/dL (8.5-10.1)
[2020-10-23 08:26] LABS: ALBUMIN 1.7 g/dl (3.4-5.0); BLOOD UREA NITROGEN 77.8 mg/dL (7-18); MAGNESIUM 2.3 mg/dL (1.8-2.4)
[2020-10-23 08:29] LABS: CREATININE 4.1 mg/dL (0.55-1.3); PHOSPHOROUS 5.9 mg/dL (2.5-4.9)
[2020-10-23 08:30] LABS: BILIRUBIN,TOTAL 0.2 mg/dL (0.2-1); TOT PROT 7.1 g/dl (6.4-8.2)
[2020-10-23] MEDS: SEVELAMER CARBONATE 800 MG TAB (FP) PO SCH ×3 (09:01→17:49)
[2020-10-23] MEDS ORDERED: cefTRIAXone SODIUM 1 GM VIAL ONE (09:50)
[2020-10-23] MEDS ORDERED: DEXTROSE 5%-WATER - 50 ML IVPB ONE (09:50)
[2020-10-23] MEDS ORDERED: PT OWN MED DRAWER 7, Y5N ONE (09:51)
[2020-10-23] MEDS: CEFTRIAXONE 1 GM in DEXTROSE 5%-WATER - 50 ML IVPB SCH (10:38)
[2020-10-23] MEDS: CALCIUM ACETATE/AL SULFATE TOP 1.9 GM/PACKET PACKET TP SCH (10:39)
[2020-10-23] MEDS: PANTOPRAZOLE 40 MG TABLET PO SCH (10:39)
[2020-10-23] MEDS: LACTOBACILLUS ACIDOPHILUS 1 TABLET PO SCH (10:39)
[2020-10-23] MEDS: INSULIN (LEVEMIR) 100 UNITS/ML UNITS SQ SCH (10:39)
[2020-10-23] MEDS: amLODIPine BESYLATE 10 MG TABLET (FP) PO SCH (10:39)
[2020-10-23] MEDS: TIMOLOL 0.5% OPHTHALMIC SOL 5 ML BOTTLE OU SCH ×2 (10:40→22:27)
[2020-10-23] MEDS: MELATONIN 5 MG TABLETS PO PRN (22:34)
[2020-10-23] MEDS: ACETAMINOPHEN 325 MG TABLET (FP) PO PRN (23:05)
[2020-10-24] MEDS: GABAPENTIN 100 MG CAPSULE PO SCH ×2 (06:45→13:36)
[2020-10-24] MEDS: INSULIN SLIDING SCALE (NOVOLOG) 1 VIAL SQ SCH ×3 (06:45→17:34)
[2020-10-24] MEDS: SEVELAMER CARBONATE 800 MG TAB (FP) PO SCH ×3 (08:30→17:35)
[2020-10-24 08:57] LABS: BASO % 0.8 % (0-2.0); EOS % 3.5 % (0-4.5); HEMATOCRIT 25.6 % (32.4-45.2); HEMOGLOBIN 8.4 GM/dL (10.7-15.3); LYMPH % 9.6 % (8-40); MCH 26.5 pg (25.7-33.7); MEAN CELL VOLUME 80.3 fl (80-96); MEAN PLT VOLUME 8.2 fl (7.5-11.1); MONO % 4.8 % (3.8-10.2); NEUT % 81.3 % (42.8-82.8); PLATELET COUNT 243 10^3/uL (134-434); RBC 3.19 M/mm3 (3.60-5.2); RDW 18.7 % (11.6-15.6)
[2020-10-24 09:15] LABS: CHLORIDE 113 mmol/L (98-107); SODIUM 143 mmol/L (136-145)
[2020-10-24 09:22] LABS: ALBUMIN 1.7 g/dl (3.4-5.0); SGOT/AST 11 U/L (15-37); SGPT/ALT 21 U/L (13-61)
[2020-10-24 09:24] LABS: BILIRUBIN,TOTAL 0.2 mg/dL (0.2-1); GLUCOSE,RANDOM 226 mg/dL (74-106); TOT PROT 7.4 g/dl (6.4-8.2)
[2020-10-24 09:25] LABS: ALK PHOS 235 U/L (45-117)
[2020-10-24 09:26] LABS: ANION GAP 9 MMOL/L (8-16); CALCIUM 7.9 mg/dL (8.5-10.1); CO2 22 mmol/L (21-32); MAGNESIUM 2.2 mg/dL (1.8-2.4); PHOSPHOROUS 5.5 mg/dL (2.5-4.9)
[2020-10-24] MEDS ORDERED: ALBUTEROL SO4 HFA INHALER IH PRN (09:49)
[2020-10-24] MEDS ORDERED: cefTRIAXone SODIUM 1 GM VIAL ONE (09:53)
[2020-10-24] MEDS ORDERED: DEXTROSE 5%-WATER - 50 ML IVPB ONE (09:53)
[2020-10-24] MEDS ORDERED: PT OWN MED DRAWER 7, Y5N ONE (09:54)
[2020-10-24] MEDS: CALCIUM ACETATE/AL SULFATE TOP 1.9 GM/PACKET PACKET TP SCH (10:11)
[2020-10-24] MEDS: INSULIN (LEVEMIR) 100 UNITS/ML UNITS SQ SCH (10:11)
[2020-10-24] MEDS: amLODIPine BESYLATE 10 MG TABLET (FP) PO SCH (10:12)
[2020-10-24] MEDS: PANTOPRAZOLE 40 MG TABLET PO SCH (10:12)
[2020-10-24] MEDS: LACTOBACILLUS ACIDOPHILUS 1 TABLET PO SCH (10:12)
[2020-10-24] MEDS: CEFTRIAXONE 1 GM in DEXTROSE 5%-WATER - 50 ML IVPB SCH (10:12)
[2020-10-24] MEDS: TIMOLOL 0.5% OPHTHALMIC SOL 5 ML BOTTLE OU SCH (10:12)
[2020-10-24] MEDS: DAPTOMYCIN 360 MG in SODIUM CHLORIDE 50 ML IVPB SCH (14:14)
[2020-10-24 18:11] VITALS: BP 169/67; PULSE 53; TEMP 97.6
== END 2020-10-24 19:01 | disposition home health service (06) | DRG 871 ==
LOC: JER 01:50 → JERBED 06:00 → JICU 13:20 → J4S 10-13 22:44
PROVIDERS: ADMIT Family Medicine; ATTEND Student in an Organized Health Care Education/Training Program
PROC: 30233N1 Transfusion of Nonautologous Red Blood Cells into Peripheral Vein, Percutaneous Approach (ICD-10-PCS; 2020-10-12)
PROC: 0DB78ZX Excision of Stomach, Pylorus, Via Natural or Artificial Opening Endoscopic, Diagnostic (ICD-10-PCS; 2020-10-17)
PROC: 0DB28ZX Excision of Middle Esophagus, Via Natural or Artificial Opening Endoscopic, Diagnostic (ICD-10-PCS; 2020-10-17)
PROC: 0DB38ZX Excision of Lower Esophagus, Via Natural or Artificial Opening Endoscopic, Diagnostic (ICD-10-PCS; 2020-10-17)
PROC: 0DB98ZX Excision of Duodenum, Via Natural or Artificial Opening Endoscopic, Diagnostic (ICD-10-PCS; principal; 2020-10-17 14:03)
DX: A41.9 Sepsis, unspecified organism (principal); J69.0 Pneumonitis due to inhalation of food and vomit; N18.4 Chronic kidney disease, stage 4 (severe); N17.9 Acute kidney failure, unspecified; M86.9 Osteomyelitis, unspecified; E11.52 Type 2 diabetes mellitus with diabetic peripheral angiopathy with gangrene; L97.919 Non-pressure chronic ulcer of unspecified part of right lower leg with unspecified severity; L03.115 Cellulitis of right lower limb; I12.9 Hypertensive chronic kidney disease with stage 1 through stage 4 chronic kidney disease, or unspecified chronic kidney disease; D64.9 Anemia, unspecified; E11.621 Type 2 diabetes mellitus with foot ulcer; R19.7 Diarrhea, unspecified; R00.1 Bradycardia, unspecified; E11.21 Type 2 diabetes mellitus with diabetic nephropathy; E11.40 Type 2 diabetes mellitus with diabetic neuropathy, unspecified; I27.20 Pulmonary hypertension, unspecified; E11.69 Type 2 diabetes mellitus with other specified complication; K29.50 Unspecified chronic gastritis without bleeding; K21.00 Gastro-esophageal reflux disease with esophagitis, without bleeding; E11.43 Type 2 diabetes mellitus with diabetic autonomic (poly)neuropathy; E11.622 Type 2 diabetes mellitus with other skin ulcer; K22.4 Dyskinesia of esophagus; R13.10 Dysphagia, unspecified; R80.9 Proteinuria, unspecified; E87.5 Hyperkalemia; K31.84 Gastroparesis; H40.9 Unspecified glaucoma; D72.829 Elevated white blood cell count, unspecified; E66.9 Obesity, unspecified; Z68.37 Body mass index [BMI] 37.0-37.9, adult
CPT/HCPCS: 36415; 36430; 36600; 70450-TC; 71045-TC-FY; 71046-TC-FY; 74220-TC-FY; 74230-TC-FY; 80048; 80053; 81003; 82272; 82436; 82533; 82550; 82570; 82607; 82728; 82746; 82803; 82962; 82977; 83540; 83550; 83605; 83735; 84100; 84133; 84300; 84484; 85025; 85610; 85730; 86850; 86900; 86901; 86922; 87040; 87070; 87077; 87186; 87205; 87899; 88305-TC; 92611-GN; 93005; 93010; 93970-TC; 94640; 94761; 97116-GP; 99285-25; C9803; G0480; J0878; P9058; U0003; U0005

== ENCOUNTER 2020-11-05 10:18 | Inpatient (IN) | payer OTHER ==
[2020-11-05 13:05] LABS: HEMATOCRIT 26.2 % (32.4-45.2); HEMOGLOBIN 8.6 GM/dL (10.7-15.3); MCH 26.2 pg (25.7-33.7); MEAN CELL VOLUME 79.4 fl (80-96); PLATELET COUNT 241 10^3/uL (134-434); RDW 18.9 % (11.6-15.6); WHITE BLOOD COUNT 7.3 K/mm3 (4.0-10.0)
[2020-11-05 13:06] LABS: INR 0.97 (0.83-1.09); PROTHROMBIN TIME (PATIENT) 11.7 SEC (9.7-13.0)
[2020-11-05 13:08] LABS: ACTIVATED PTT 40.6 SECONDS (25.2-36.5)
[2020-11-05 13:10] LABS: CHLORIDE 118 mmol/L (98-107); SODIUM 143 mmol/L (136-145)
[2020-11-05 13:12] LABS: CALCIUM 7.9 mg/dL (8.5-10.1)
[2020-11-05 13:13] LABS: ALBUMIN 1.7 g/dl (3.4-5.0); BLOOD UREA NITROGEN 51.8 mg/dL (7-18); CO2 22 mmol/L (21-32); GLUCOSE,RANDOM 70 mg/dL (74-106)
[2020-11-05 13:16] LABS: SGOT/AST 56 U/L (15-37); SGPT/ALT 30 U/L (13-61)
[2020-11-05 13:18] LABS: BILIRUBIN,TOTAL 0.3 mg/dL (0.2-1); TOT PROT 7.1 g/dl (6.4-8.2)
[2020-11-05 13:20] LABS: ALK PHOS 259 U/L (45-117)
[2020-11-05 13:25] LABS: ANION GAP 3 MMOL/L (8-16)
[2020-11-05 13:47] LABS: ANISOCYTOSIS 2+; MACROCYTOSIS 1+; PLATELET ESTIMATE NORMAL
[2020-11-05 14:36] LABS: CHLORIDE 121 mmol/L (98-107); SODIUM 147 mmol/L (136-145)
[2020-11-05 14:38] LABS: BLOOD UREA NITROGEN 48.7 mg/dL (7-18); CALCIUM 7.7 mg/dL (8.5-10.1)
[2020-11-05 14:39] LABS: CO2 23 mmol/L (21-32); GLUCOSE,RANDOM 55 mg/dL (74-106)
[2020-11-05 14:42] LABS: CREATININE 3.2 mg/dL (0.55-1.3)
[2020-11-05 14:45] LABS: ANION GAP 3 MMOL/L (8-16)
[2020-11-05 17:17] LABS: CHLORIDE 120 mmol/L (98-107); SODIUM 147 mmol/L (136-145)
[2020-11-05 17:18] LABS: CALCIUM 8.1 mg/dL (8.5-10.1)
[2020-11-05 17:24] LABS: ANION GAP 4 MMOL/L (8-16); CO2 23 mmol/L (21-32); GLUCOSE,RANDOM 41 mg/dL (74-106)
[2020-11-05] MEDS ORDERED: SODIUM BICARBONATE 8.4% 50 MEQ/50 ML VIAL IVPUSH ONE (17:28)
[2020-11-05] MEDS ORDERED: DEXTROSE 50%-WATER - 25 GM/50 ML VIAL IVPUSH ONE (17:29)
[2020-11-05] MEDS ORDERED: CALCIUM GLUCONATE 10% - 1,000 MG/10 ML VIAL IVPUSH ONE (17:29)
[2020-11-05] MEDS ORDERED: INSULIN REGULAR HUMAN 100 UNITS/ML *VIAL IVPUSH ONE (17:30)
[2020-11-05] MEDS ORDERED: CALCIUM CHLORIDE 1 GM/10 ML *DISP.SYRIN ONE (17:34)
[2020-11-05] MEDS ORDERED: DEXTROSE 50%-WATER 25 GM/50 ML DISP.SYRIN ONE ×2 (17:34→22:52)
[2020-11-05] MEDS ORDERED: SODIUM BICARBONATE 8.4% - 50 ML ONE (17:34)
[2020-11-05] MEDS ORDERED: SODIUM ZIRCONIUM CYCLOSILICATE (LOKELMA) 5 GM PACKET ONE (18:23)
[2020-11-05] MEDS ORDERED: SODIUM ZIRCONIUM CYCLOSILICATE (LOKELMA) 5 GM PACKET PO ONE (19:19)
[2020-11-05 20:25] LABS: CALCIUM 8.7 mg/dL (8.5-10.1)
[2020-11-05 20:26] LABS: BLOOD UREA NITROGEN 51.3 mg/dL (7-18)
[2020-11-05] MEDS ORDERED: DEXTROSE 50%-WATER 25 GM/50 ML DISP.SYRIN IVPUSH ONE (22:50)
[2020-11-05] MEDS: NYSTATIN 100,000 UNIT/GM TOPICAL CREAM 15 GM TUBE TP SCH (23:27)
[2020-11-05 23:42] LABS: HEMOGLOBIN 7.8 GM/dL (10.7-15.3); WHITE BLOOD COUNT 6.2 K/mm3 (4.0-10.0)
[2020-11-05 23:44] LABS: EPI CELLS >36 /uL (0-25.1); HYALINE CASTS 18 /uL (0-3.1); PH,URINE 5.5 (5.0-8.0); URINE APPEARANCE TURBID; URINE BACTERIA 66 /uL (0-1359); URINE BILIRUBIN NEGATIVE (NEGATIVE); URINE COLOR YELLOW; URINE GLUCOSE (UA) NEGATIVE (NEGATIVE); URINE KETONE NEGATIVE (NEGATIVE); URINE LEUK ESTERASE 3+ (NEGATIVE); URINE NITRITE NEGATIVE (NEGATIVE); URINE PROTEIN 4+ (NEGATIVE); URINE UROBILINOGEN 0.2 mg/dL (0.2-1.0); URINE WBC 21136 /uL (0-25.8)
[2020-11-05 23:46] LABS: EOS % 2.8 % (0-4.5); HEMATOCRIT 23.9 % (32.4-45.2); LYMPH % 22.8 % (8-40); MCH 25.8 pg (25.7-33.7); MCHC 32.4 g/dl (32.0-36.0); MEAN CELL VOLUME 79.5 fl (80-96); MONO % 6.7 % (3.8-10.2); NEUT % 66.7 % (42.8-82.8); PLATELET COUNT 230 10^3/uL (134-434); RBC 3.01 M/mm3 (3.60-5.2); RDW 19.1 % (11.6-15.6)
[2020-11-05] MEDS ORDERED: VANCOMYCIN 1 GRAM (PRE-DOCKED) 1,000 MG/250 ML BAG IVPB ONE (23:57)
[2020-11-05] MEDS ORDERED: PIPERACILLIN/TAZOB 3.375 GM 3.375 GM in DEXTROSE 5%-WATER - 50 ML IVPB ONE (23:59)
[2020-11-06 00:09] LABS: CHLORIDE 120 mmol/L (98-107); SODIUM 147 mmol/L (136-145)
[2020-11-06 00:10] LABS: ALBUMIN 1.6 g/dl (3.4-5.0); CO2 25 mmol/L (21-32)
[2020-11-06 00:11] LABS: GLUCOSE,RANDOM 159 mg/dL (74-106)
[2020-11-06 00:14] LABS: CREATININE 3.1 mg/dL (0.55-1.3); SGOT/AST 40 U/L (15-37); SGPT/ALT 29 U/L (13-61)
[2020-11-06 00:15] LABS: BILIRUBIN,TOTAL 0.2 mg/dL (0.2-1); TOT PROT 6.5 g/dl (6.4-8.2)
[2020-11-06 00:16] LABS: ALK PHOS 240 U/L (45-117)
[2020-11-06 00:17] VITALS: BMI 38.1
[2020-11-06] MEDS ORDERED: PIPERACILLIN/TAZOBACTAM 3.375 GM VIAL IVPB ONE (00:41)
[2020-11-06] MEDS ORDERED: DEXTROSE 5%-WATER - 50 ML IVPB ONE ×3 (00:41→16:52)
[2020-11-06 00:50] LABS: ANION GAP 2 MMOL/L (8-16)
[2020-11-06] MEDS ORDERED: MORPHINE SULFATE 2 MG/ML VIAL IVPB ONE (01:55)
[2020-11-06] MEDS ORDERED: DEXTROSE 50%-WATER - 25 GM/50 ML VIAL IVPUSH ONE ×2 (03:06→03:30)
[2020-11-06] MEDS ORDERED: INSULIN REGULAR HUMAN 100 UNITS/ML *VIAL IVPUSH ONE (03:07)
[2020-11-06] MEDS ORDERED: CALCIUM GLUCONATE 10% - 1,000 MG/10 ML VIAL IVPUSH ONE (03:07)
[2020-11-06] MEDS ORDERED: SODIUM BICARBONATE 8.4% 50 MEQ/50 ML DISP.SYRIN IVPUSH ONE (03:08)
[2020-11-06] MEDS ORDERED: SODIUM BICARBONATE 8.4% 50 MEQ/50 ML VIAL IVPUSH ONE (03:30)
[2020-11-06] MEDS: MORPHINE SULFATE 2 MG/ML VIAL IVPUSH PRN ×2 (06:20→13:06)
[2020-11-06 08:39] LABS: HEMATOCRIT 22.8 % (32.4-45.2); HEMOGLOBIN 7.5 GM/dL (10.7-15.3); MCHC 32.8 g/dl (32.0-36.0); MEAN CELL VOLUME 79.3 fl (80-96); MEAN PLT VOLUME 7.7 fl (7.5-11.1); PLATELET COUNT 216 10^3/uL (134-434); RBC 2.87 M/mm3 (3.60-5.2); RDW 18.9 % (11.6-15.6); WHITE BLOOD COUNT 6.4 K/mm3 (4.0-10.0)
[2020-11-06] MEDS ORDERED: SODIUM CHLORIDE 0.45% 1,000 ML IV SCH (08:45)
[2020-11-06 08:46] LABS: CALCIUM 7.8 mg/dL (8.5-10.1)
[2020-11-06 08:47] LABS: ALBUMIN 1.6 g/dl (3.4-5.0); BLOOD UREA NITROGEN 49.2 mg/dL (7-18)
[2020-11-06 08:52] LABS: BILIRUBIN,TOTAL 0.2 mg/dL (0.2-1); TOT PROT 6.1 g/dl (6.4-8.2)
[2020-11-06] MEDS ORDERED: PIPERACILLIN/TAZOBACTAM 2.25 GM VIAL IVPB ONE ×2 (10:19→16:52)
[2020-11-06] MEDS: PIPERACILLIN/TAZOB 2.25 GM 2.25 GM in DEXTROSE 5%-WATER - 50 ML IVPB SCH ×2 (10:31→17:14)
[2020-11-06] MEDS: NYSTATIN 100,000 UNIT/GM TOPICAL CREAM 15 GM TUBE TP SCH ×2 (10:32→21:25)
[2020-11-06 10:44] LABS: ANISOCYTOSIS 1+; MACROCYTOSIS 0; PLATELET ESTIMATE NORMAL
[2020-11-06] MEDS: INSULIN (NOVOLOG) ASPART 100 UNITS/ML 10ML VIAL SQ SCH ×3 (11:32→21:54)
[2020-11-06] MEDS ORDERED: FUROSEMIDE 40 MG/4 ML INJECTABLE VIAL IVPUSH ONE (14:22)
[2020-11-06] MEDS: SODIUM CHLORIDE 0.45% 1,000 ML IV SCH (15:47)
[2020-11-06] MEDS: SODIUM ZIRCONIUM CYCLOSILICATE (LOKELMA) 10 GM PACKET PO SCH ×2 (16:33→21:32)
[2020-11-06] MEDS ORDERED: PT OWN MED DRAWER 7, Y5N ONE ×2 (16:46→21:23)
[2020-11-06] MEDS ORDERED: SODIUM ZIRCONIUM CYCLOSILICATE (LOKELMA) 5 GM PACKET PO ONE (17:30)
[2020-11-06] MEDS ORDERED: PIPERACILLIN/TAZOB 3.375 GM 3.375 GM in DEXTROSE 5%-WATER - 50 ML IVPB ONE (17:57)
[2020-11-06 20:30] LABS: BASO % 1.2 % (0-2.0); EOS % 3.6 % (0-4.5); HEMATOCRIT 24.4 % (32.4-45.2); LYMPH % 4.5 % (8-40); MCH 26.1 pg (25.7-33.7); MCHC 32.9 g/dl (32.0-36.0); MEAN CELL VOLUME 79.4 fl (80-96); MEAN PLT VOLUME 8.3 fl (7.5-11.1); MONO % 9.5 % (3.8-10.2); NEUT % 81.2 % (42.8-82.8); PLATELET COUNT 232 10^3/uL (134-434); RBC 3.08 M/mm3 (3.60-5.2); RDW 19.6 % (11.6-15.6); WHITE BLOOD COUNT 6.9 K/mm3 (4.0-10.0)
[2020-11-06 20:45] LABS: IRON SERUM 35 ug/dL (50-175)
[2020-11-06 20:46] LABS: TOTAL IRON BINDING CAPACITY 191 ug/dL (250-450)
[2020-11-06 21:02] LABS: ANISOCYTOSIS 2+; MACROCYTOSIS 1+; PLATELET ESTIMATE NORMAL; TARGET CELLS 1+
[2020-11-07] MEDS ORDERED: PIPERACILLIN/TAZOBACTAM 2.25 GM VIAL IVPB ONE ×2 (01:10→10:17)
[2020-11-07] MEDS ORDERED: DEXTROSE 5%-WATER - 50 ML IVPB ONE ×2 (01:10→10:18)
[2020-11-07] MEDS: PIPERACILLIN/TAZOB 2.25 GM 2.25 GM in DEXTROSE 5%-WATER - 50 ML IVPB SCH (02:14)
[2020-11-07] MEDS: INSULIN (NOVOLOG) ASPART 100 UNITS/ML 10ML VIAL SQ SCH ×4 (06:32→21:29)
[2020-11-07 09:06] LABS: CALCIUM 7.7 mg/dL (8.5-10.1)
[2020-11-07 09:07] LABS: ALBUMIN 1.7 g/dl (3.4-5.0); BLOOD UREA NITROGEN 48.2 mg/dL (7-18)
[2020-11-07 09:12] LABS: BILIRUBIN,TOTAL 0.3 mg/dL (0.2-1); TOT PROT 6.7 g/dl (6.4-8.2)
[2020-11-07] MEDS ORDERED: PT OWN MED DRAWER 7, Y5N ONE ×3 (10:18→21:05)
[2020-11-07] MEDS: TIMOLOL 0.5% OPHTHALMIC SOL 5 ML BOTTLE OU SCH ×2 (10:50→21:17)
[2020-11-07] MEDS: SODIUM ZIRCONIUM CYCLOSILICATE (LOKELMA) 10 GM PACKET PO SCH ×2 (10:50→21:14)
[2020-11-07] MEDS: NYSTATIN 100,000 UNIT/GM TOPICAL CREAM 15 GM TUBE TP SCH ×2 (10:50→21:18)
[2020-11-07] MEDS: FUROSEMIDE 40 MG TABLET (FP) PO SCH (10:51)
[2020-11-07] MEDS: SODIUM CHLORIDE 0.45% 1,000 ML IV SCH (17:07)
[2020-11-07] MEDS: GABAPENTIN 100 MG CAPSULE PO SCH ×2 (17:07→21:12)
[2020-11-07] MEDS: MIRTAZAPINE 15 MG TABLET (FP) PO SCH (21:12)
[2020-11-07] MEDS: POLYETHYLENE GLYCOL (HEALTHYLAX) 3350 17 GM PACKET PO SCH (21:14)
[2020-11-08] MEDS: GABAPENTIN 100 MG CAPSULE PO SCH ×3 (06:03→21:57)
[2020-11-08] MEDS: INSULIN (NOVOLOG) ASPART 100 UNITS/ML 10ML VIAL SQ SCH ×4 (06:06→21:58)
[2020-11-08] MEDS: POLYETHYLENE GLYCOL (HEALTHYLAX) 3350 17 GM PACKET PO SCH ×3 (06:06→21:50)
[2020-11-08 09:15] LABS: BASO % 1.1 % (0-2.0); EOS % 2.8 % (0-4.5); HEMATOCRIT 23.6 % (32.4-45.2); HEMOGLOBIN 7.6 GM/dL (10.7-15.3); LYMPH % 15.6 % (8-40); MCH 26.2 pg (25.7-33.7); MCHC 32.4 g/dl (32.0-36.0); MEAN CELL VOLUME 80.9 fl (80-96); MEAN PLT VOLUME 8.2 fl (7.5-11.1); MONO % 8.4 % (3.8-10.2); NEUT % 72.1 % (42.8-82.8); PLATELET COUNT 188 10^3/uL (134-434); RBC 2.92 M/mm3 (3.60-5.2); RDW 19.3 % (11.6-15.6); WHITE BLOOD COUNT 7.1 K/mm3 (4.0-10.0)
[2020-11-08] MEDS ORDERED: FUROSEMIDE 40 MG/4 ML INJECTABLE VIAL IVPUSH ONE (09:23)
[2020-11-08 09:32] LABS: CALCIUM 7.7 mg/dL (8.5-10.1)
[2020-11-08 09:33] LABS: ALBUMIN 1.8 g/dl (3.4-5.0); BLOOD UREA NITROGEN 49.6 mg/dL (7-18)
[2020-11-08 09:36] LABS: CREATININE 3.2 mg/dL (0.55-1.3)
[2020-11-08 09:38] LABS: BILIRUBIN,TOTAL 0.3 mg/dL (0.2-1); TOT PROT 6.7 g/dl (6.4-8.2)
[2020-11-08] MEDS: TIMOLOL 0.5% OPHTHALMIC SOL 5 ML BOTTLE OU SCH ×2 (11:43→22:00)
[2020-11-08] MEDS: NYSTATIN 100,000 UNIT/GM TOPICAL CREAM 15 GM TUBE TP SCH ×2 (11:44→22:06)
[2020-11-08] MEDS: DAPTOMYCIN 360 MG in SODIUM CHLORIDE 50 ML IVPB SCH (11:45)
[2020-11-08] MEDS: FUROSEMIDE 40 MG TABLET (FP) PO SCH (11:45)
[2020-11-08] MEDS: MIRTAZAPINE 15 MG TABLET (FP) PO SCH (21:58)
[2020-11-09] MEDS ORDERED: FUROSEMIDE 40 MG/4 ML INJECTABLE VIAL IVPUSH ONE (03:00)
[2020-11-09] MEDS: INSULIN SLIDING SCALE (NOVOLOG) 1 VIAL SQ SCH ×4 (06:58→22:59)
[2020-11-09] MEDS: POLYETHYLENE GLYCOL (HEALTHYLAX) 3350 17 GM PACKET PO SCH ×3 (06:58→22:54)
[2020-11-09] MEDS: GABAPENTIN 100 MG CAPSULE PO SCH ×3 (06:58→21:41)
[2020-11-09] MEDS ORDERED: INSULIN (LEVEMIR) 100 UNITS/ML UNITS SQ SCH (10:00)
[2020-11-09] MEDS: FUROSEMIDE 40 MG TABLET (FP) PO SCH (11:01)
[2020-11-09] MEDS: DAPTOMYCIN 360 MG in SODIUM CHLORIDE 50 ML IVPB SCH (11:01)
[2020-11-09] MEDS: NYSTATIN 100,000 UNIT/GM TOPICAL CREAM 15 GM TUBE TP SCH ×2 (11:02→21:41)
[2020-11-09] MEDS: TIMOLOL 0.5% OPHTHALMIC SOL 5 ML BOTTLE OU SCH ×2 (11:02→21:41)
[2020-11-09] MEDS ORDERED: PIPERACILLIN/TAZOBACTAM 2.25 GM VIAL IVPB ONE ×2 (11:53→17:24)
[2020-11-09] MEDS ORDERED: DEXTROSE 5%-WATER - 50 ML IVPB ONE ×2 (11:54→17:24)
[2020-11-09] MEDS: PIPERACILLIN/TAZOB 2.25 GM 2.25 GM in DEXTROSE 5%-WATER - 50 ML IVPB SCH ×2 (12:00→18:11)
[2020-11-09] MEDS ORDERED: PEG 3350/NA SULF BICARB CL/KCL 4000 ML SOLN.RECON PO ONE (12:00)
[2020-11-09 12:40] LABS: CALCIUM 7.6 mg/dL (8.5-10.1)
[2020-11-09 12:41] LABS: BLOOD UREA NITROGEN 49.4 mg/dL (7-18)
[2020-11-09 12:44] LABS: CREATININE 3.4 mg/dL (0.55-1.3)
[2020-11-09 16:57] LABS: HEMATOCRIT 30.5 % (32.4-45.2); HEMOGLOBIN 10.2 GM/dL (10.7-15.3); MCH 27.3 pg (25.7-33.7); MCHC 33.3 g/dl (32.0-36.0); PLATELET COUNT 165 10^3/uL (134-434); RBC 3.72 M/mm3 (3.60-5.2); RDW 17.6 % (11.6-15.6); WHITE BLOOD COUNT 6.9 K/mm3 (4.0-10.0)
[2020-11-09] MEDS ORDERED: BISACODYL 5 MG TABLET.DR (FP) PO ONE (17:00)
[2020-11-09 17:11] LABS: MAGNESIUM 1.7 mg/dL (1.8-2.4)
[2020-11-09 17:47] LABS: ERYTHROCYTE SEDIMENTATION RATE 73 mm/hr (0-30)
[2020-11-09] MEDS ORDERED: INSULIN SLIDING SCALE (NOVOLOG) 1 VIAL SQ SCH (21:31)
[2020-11-09] MEDS: MIRTAZAPINE 15 MG TABLET (FP) PO SCH (21:41)
[2020-11-09] MEDS: INSULIN (LEVEMIR) 100 UNITS/ML UNITS SQ SCH (22:58)
[2020-11-10] MEDS ORDERED: DEXTROSE 5%-WATER - 50 ML IVPB ONE ×3 (01:17→16:45)
[2020-11-10] MEDS ORDERED: PIPERACILLIN/TAZOBACTAM 2.25 GM VIAL IVPB ONE ×3 (01:17→16:45)
[2020-11-10] MEDS: PIPERACILLIN/TAZOB 2.25 GM 2.25 GM in DEXTROSE 5%-WATER - 50 ML IVPB SCH ×3 (01:47→17:29)
[2020-11-10] MEDS: GABAPENTIN 100 MG CAPSULE PO SCH ×3 (06:37→21:18)
[2020-11-10] MEDS: INSULIN SLIDING SCALE (NOVOLOG) 1 VIAL SQ SCH ×4 (06:48→21:18)
[2020-11-10] MEDS: INSULIN (LEVEMIR) 100 UNITS/ML UNITS SQ SCH ×2 (06:48→21:20)
[2020-11-10] MEDS ORDERED: DEXTROSE 50%-WATER 25 GM/50 ML DISP.SYRIN ONE (07:17)
[2020-11-10] MEDS: POLYETHYLENE GLYCOL (HEALTHYLAX) 3350 17 GM PACKET PO SCH ×3 (07:26→21:19)
[2020-11-10] MEDS ORDERED: DEXTROSE 50%-WATER - 25 GM/50 ML VIAL IVPUSH ONE (07:30)
[2020-11-10 09:07] LABS: BASO % 0.4 % (0-2.0); EOS % 4.4 % (0-4.5); HEMATOCRIT 31.4 % (32.4-45.2); HEMOGLOBIN 10.5 GM/dL (10.7-15.3); LYMPH % 14.1 % (8-40); MCH 27.2 pg (25.7-33.7); MCHC 33.5 g/dl (32.0-36.0); MEAN CELL VOLUME 81.1 fl (80-96); MEAN PLT VOLUME 7.8 fl (7.5-11.1); MONO % 9.8 % (3.8-10.2); NEUT % 71.3 % (42.8-82.8); PLATELET COUNT 168 10^3/uL (134-434); RBC 3.87 M/mm3 (3.60-5.2); RDW 18.4 % (11.6-15.6); WHITE BLOOD COUNT 7.8 K/mm3 (4.0-10.0)
[2020-11-10] MEDS ORDERED: PT OWN MED DRAWER 7, Y5N ONE (09:16)
[2020-11-10] MEDS: TIMOLOL 0.5% OPHTHALMIC SOL 5 ML BOTTLE OU SCH ×2 (09:25→21:19)
[2020-11-10] MEDS: NYSTATIN 100,000 UNIT/GM TOPICAL CREAM 15 GM TUBE TP SCH ×2 (09:25→21:18)
[2020-11-10 09:28] LABS: BLOOD UREA NITROGEN 44.6 mg/dL (7-18); CALCIUM 7.8 mg/dL (8.5-10.1)
[2020-11-10 09:32] LABS: CREATININE 3.2 mg/dL (0.55-1.3)
[2020-11-10 12:07] LABS: HEP B CORE AB, TOT Negative (Negative)
[2020-11-10] MEDS: DAPTOMYCIN 360 MG in SODIUM CHLORIDE 50 ML IVPB SCH (13:54)
[2020-11-10] MEDS: COLLAGENASE CLOSTRIDIUM HIST. 30 GRAMS TUBE TP SCH (13:54)
[2020-11-10] MEDS: FUROSEMIDE 40 MG TABLET (FP) PO SCH (14:05)
[2020-11-10] MEDS: MIRTAZAPINE 15 MG TABLET (FP) PO SCH (21:19)
[2020-11-11] MEDS ORDERED: PIPERACILLIN/TAZOBACTAM 2.25 GM VIAL IVPB ONE ×3 (01:30→17:28)
[2020-11-11] MEDS ORDERED: DEXTROSE 5%-WATER - 50 ML IVPB ONE ×3 (01:30→17:29)
[2020-11-11] MEDS: PIPERACILLIN/TAZOB 2.25 GM 2.25 GM in DEXTROSE 5%-WATER - 50 ML IVPB SCH ×3 (01:59→17:37)
[2020-11-11] MEDS: GABAPENTIN 100 MG CAPSULE PO SCH ×3 (06:11→22:07)
[2020-11-11] MEDS: POLYETHYLENE GLYCOL (HEALTHYLAX) 3350 17 GM PACKET PO SCH ×3 (06:34→21:52)
[2020-11-11] MEDS: INSULIN (LEVEMIR) 100 UNITS/ML UNITS SQ SCH ×2 (06:35→22:07)
[2020-11-11] MEDS: INSULIN SLIDING SCALE (NOVOLOG) 1 VIAL SQ SCH ×4 (06:36→22:07)
[2020-11-11] MEDS: FUROSEMIDE 40 MG TABLET (FP) PO SCH (09:47)
[2020-11-11] MEDS: NYSTATIN 100,000 UNIT/GM TOPICAL CREAM 15 GM TUBE TP SCH ×2 (09:47→22:08)
[2020-11-11] MEDS: COLLAGENASE CLOSTRIDIUM HIST. 30 GRAMS TUBE TP SCH (09:47)
[2020-11-11] MEDS: TIMOLOL 0.5% OPHTHALMIC SOL 5 ML BOTTLE OU SCH ×2 (09:48→22:08)
[2020-11-11] MEDS: DAPTOMYCIN 360 MG in SODIUM CHLORIDE 50 ML IVPB SCH (11:55)
[2020-11-11] MEDS: MIRTAZAPINE 15 MG TABLET (FP) PO SCH (22:07)
[2020-11-12] MEDS ORDERED: PIPERACILLIN/TAZOBACTAM 2.25 GM VIAL IVPB ONE ×3 (01:17→19:01)
[2020-11-12] MEDS: PIPERACILLIN/TAZOB 2.25 GM 2.25 GM in DEXTROSE 5%-WATER - 50 ML IVPB SCH ×3 (01:31→19:06)
[2020-11-12] MEDS: POLYETHYLENE GLYCOL (HEALTHYLAX) 3350 17 GM PACKET PO SCH ×3 (06:32→21:51)
[2020-11-12] MEDS: GABAPENTIN 100 MG CAPSULE PO SCH ×3 (06:47→21:56)
[2020-11-12] MEDS: INSULIN SLIDING SCALE (NOVOLOG) 1 VIAL SQ SCH ×4 (06:49→21:56)
[2020-11-12] MEDS: INSULIN (LEVEMIR) 100 UNITS/ML UNITS SQ SCH ×2 (09:30→21:55)
[2020-11-12] MEDS ORDERED: DEXTROSE 5%-WATER - 50 ML IVPB ONE ×2 (09:55→19:01)
[2020-11-12] MEDS ORDERED: PT OWN MED DRAWER 7, Y5N ONE (09:56)
[2020-11-12] MEDS: NYSTATIN 100,000 UNIT/GM TOPICAL CREAM 15 GM TUBE TP SCH ×2 (10:06→21:58)
[2020-11-12] MEDS: FUROSEMIDE 40 MG TABLET (FP) PO SCH (10:06)
[2020-11-12] MEDS: DAPTOMYCIN 360 MG in SODIUM CHLORIDE 50 ML IVPB SCH (10:06)
[2020-11-12] MEDS: COLLAGENASE CLOSTRIDIUM HIST. 30 GRAMS TUBE TP SCH (10:07)
[2020-11-12] MEDS: TIMOLOL 0.5% OPHTHALMIC SOL 5 ML BOTTLE OU SCH ×2 (10:07→21:58)
[2020-11-12] MEDS: MIRTAZAPINE 15 MG TABLET (FP) PO SCH (21:56)
[2020-11-13] MEDS ORDERED: DEXTROSE 5%-WATER - 50 ML IVPB ONE ×2 (01:16→11:47)
[2020-11-13] MEDS ORDERED: PIPERACILLIN/TAZOBACTAM 2.25 GM VIAL IVPB ONE ×2 (01:16→11:47)
[2020-11-13] MEDS: PIPERACILLIN/TAZOB 2.25 GM 2.25 GM in DEXTROSE 5%-WATER - 50 ML IVPB SCH ×2 (01:29→12:05)
[2020-11-13] MEDS: POLYETHYLENE GLYCOL (HEALTHYLAX) 3350 17 GM PACKET PO SCH ×3 (06:22→21:48)
[2020-11-13] MEDS: GABAPENTIN 100 MG CAPSULE PO SCH ×3 (06:46→21:49)
[2020-11-13] MEDS: INSULIN (LEVEMIR) 100 UNITS/ML UNITS SQ SCH (06:48)
[2020-11-13] MEDS: INSULIN SLIDING SCALE (NOVOLOG) 1 VIAL SQ SCH ×4 (06:48→21:49)
[2020-11-13] MEDS ORDERED: PT OWN MED DRAWER 7, Y5N ONE (11:47)
[2020-11-13] MEDS: TIMOLOL 0.5% OPHTHALMIC SOL 5 ML BOTTLE OU SCH ×2 (12:04→21:49)
[2020-11-13] MEDS: NYSTATIN 100,000 UNIT/GM TOPICAL CREAM 15 GM TUBE TP SCH ×2 (12:04→21:48)
[2020-11-13] MEDS: COLLAGENASE CLOSTRIDIUM HIST. 30 GRAMS TUBE TP SCH (12:04)
[2020-11-13] MEDS: DAPTOMYCIN 360 MG in SODIUM CHLORIDE 50 ML IVPB SCH (12:05)
[2020-11-13] MEDS: FUROSEMIDE 40 MG TABLET (FP) PO SCH (12:05)
[2020-11-13] MEDS ORDERED: DEXTROSE 50%-WATER - 25 GM/50 ML VIAL IVPUSH ONE (17:59)
[2020-11-13] MEDS ORDERED: DEXTROSE 50%-WATER 25 GM/50 ML DISP.SYRIN ONE (18:01)
[2020-11-13] MEDS: MIRTAZAPINE 15 MG TABLET (FP) PO SCH (21:49)
[2020-11-14] MEDS ORDERED: DEXTROSE 50%-WATER - 25 GM/50 ML VIAL IVPUSH ONE (05:39)
[2020-11-14] MEDS ORDERED: DEXTROSE 50%-WATER 25 GM/50 ML DISP.SYRIN ONE (05:40)
[2020-11-14] MEDS: POLYETHYLENE GLYCOL (HEALTHYLAX) 3350 17 GM PACKET PO SCH ×3 (05:58→21:44)
[2020-11-14] MEDS: GABAPENTIN 100 MG CAPSULE PO SCH ×3 (05:59→21:56)
[2020-11-14] MEDS: INSULIN SLIDING SCALE (NOVOLOG) 1 VIAL SQ SCH ×4 (05:59→21:55)
[2020-11-14] MEDS: FUROSEMIDE 40 MG TABLET (FP) PO SCH (10:13)
[2020-11-14] MEDS: NYSTATIN 100,000 UNIT/GM TOPICAL CREAM 15 GM TUBE TP SCH ×2 (10:13→21:57)
[2020-11-14] MEDS: TIMOLOL 0.5% OPHTHALMIC SOL 5 ML BOTTLE OU SCH ×2 (10:13→21:57)
[2020-11-14] MEDS: COLLAGENASE CLOSTRIDIUM HIST. 30 GRAMS TUBE TP SCH (10:13)
[2020-11-14] MEDS: DAPTOMYCIN 360 MG in SODIUM CHLORIDE 50 ML IVPB SCH (12:04)
[2020-11-14 14:52] LABS: CALCIUM 7.5 mg/dL (8.5-10.1)
[2020-11-14 14:53] LABS: BLOOD UREA NITROGEN 31.6 mg/dL (7-18)
[2020-11-14 14:56] LABS: CREATININE 2.8 mg/dL (0.55-1.3)
[2020-11-14] MEDS ORDERED: SODIUM BICARBONATE 650 MG TABLET PO SCH (15:30)
[2020-11-14] MEDS ORDERED: LOPERAMIDE HCL 2 MG CAPSULE PO PRN (16:02)
[2020-11-14] MEDS: INSULIN (LEVEMIR) 100 UNITS/ML UNITS SQ SCH (21:55)
[2020-11-14] MEDS: MIRTAZAPINE 15 MG TABLET (FP) PO SCH (21:56)
[2020-11-14 23:29] VITALS: BP 150/63; PULSE 97; TEMP 97.5
== END 2020-11-14 23:30 | DRG 871 ==
LOC: JER 10:18 → JERBED 16:43 → J8W 20:31 → OBSVTOIN 23:05 → J4S 11-06 03:07
PROVIDERS: ADMIT Family Medicine; ATTEND Family Medicine
PROC: 0DBF8ZX Excision of Right Large Intestine, Via Natural or Artificial Opening Endoscopic, Diagnostic (ICD-10-PCS; principal; 2020-11-10 09:00)
DX: A41.9 Sepsis, unspecified organism (principal); J18.9 Pneumonia, unspecified organism; S72.432A Displaced fracture of medial condyle of left femur, initial encounter for closed fracture; N18.4 Chronic kidney disease, stage 4 (severe); N17.9 Acute kidney failure, unspecified; M86.68 Other chronic osteomyelitis, other site; D64.9 Anemia, unspecified; E87.5 Hyperkalemia; E11.51 Type 2 diabetes mellitus with diabetic peripheral angiopathy without gangrene; I12.9 Hypertensive chronic kidney disease with stage 1 through stage 4 chronic kidney disease, or unspecified chronic kidney disease; E11.22 Type 2 diabetes mellitus with diabetic chronic kidney disease; Z79.4 Long term (current) use of insulin; I27.20 Pulmonary hypertension, unspecified; I36.1 Nonrheumatic tricuspid (valve) insufficiency; K64.9 Unspecified hemorrhoids; W19.XXXA Unspecified fall, initial encounter; Y93.89 Activity, other specified; Y92.009 Unspecified place in unspecified non-institutional (private) residence as the place of occurrence of the external cause; Y99.8 Other external cause status; Z89.421 Acquired absence of other right toe(s); E11.69 Type 2 diabetes mellitus with other specified complication
CPT/HCPCS: 36415; 36430; 36511; 71045-TC-FY; 73552-TC-LT-FY; 73562-TC-LT-FY; 73700-TC-RT; 76705-TC; 80048; 80053; 81003; 82728; 82962; 83036; 83540; 83550; 83605; 83735; 84439; 84443; 85025; 85027; 85610; 85651; 85730; 86140; 86704; 86706; 86707; 86708; 86709; 86803; 86850; 86900; 86901; 86922; 87040; 87077; 87086; 87340; 88305-TC; 93005; 93010; 97161-GP; 99285-25; C9803; G0378; J0878; P9038; P9058; U0003; U0005

== ENCOUNTER 2020-11-19 07:25 | Inpatient (IN) | payer OTHER ==
[2020-11-19] MEDS ORDERED: DEXTROSE 50%-WATER 25 GM/50 ML DISP.SYRIN ONE (07:36)
[2020-11-19] MEDS ORDERED: NALOXONE HCL 0.4 MG/ML VIAL ONE (07:37)
[2020-11-19] MEDS ORDERED: RAPID SEQUENCE INTUBATION KIT NR ONE (07:38)
[2020-11-19] MEDS ORDERED: LORazepam 2 MG/ML SDV VIAL ONE ×2 (07:44→08:30)
[2020-11-19] MEDS ORDERED: ETOMIDATE 20 MG/10 ML AMPUL IVPUSH ONE (08:12)
[2020-11-19] MEDS ORDERED: DEXTROSE 50%-WATER - 25 GM/50 ML VIAL IVPUSH ONE (08:12)
[2020-11-19] MEDS ORDERED: LORazepam 2 MG/ML SDV VIAL IVPUSH ONE (08:12)
[2020-11-19] MEDS ORDERED: NALOXONE HCL 0.4 MG/ML VIAL IVPUSH ONE (08:12)
[2020-11-19] MEDS ORDERED: SUCCINYLCHOLINE CHLORIDE 200 MG/10 ML VIAL IVPUSH ONE (08:13)
[2020-11-19] MEDS ORDERED: MIDAZOLAM HCL 2 MG/2 ML SINGLE DOSE VIAL IVPUSH ONE ×2 (08:28→11:44)
[2020-11-19 08:42] LABS: HEMATOCRIT 28.2 % (32.4-45.2); HEMOGLOBIN 9.2 GM/dL (10.7-15.3); MCH 26.3 pg (25.7-33.7); MCHC 32.8 g/dl (32.0-36.0); PLATELET COUNT 370 10^3/uL (134-434); RBC 3.52 M/mm3 (3.60-5.2); RDW 17.6 % (11.6-15.6); WHITE BLOOD COUNT 15.6 K/mm3 (4.0-10.0)
[2020-11-19 08:53] LABS: VENOUS BASE EXCESS 2.6 mmol/L (-2-2); VENOUS O2 SATURATION 93.2 % (70-80); VENOUS PCO2 41.4 mmHg (38-52); VENOUS PH 7.433 (7.310-7.410)
[2020-11-19 09:00] LABS: INR 1.07 (0.83-1.09); PROTHROMBIN TIME (PATIENT) 12.9 SEC (9.7-13.0)
[2020-11-19 09:03] LABS: ACTIVATED PTT 28.1 SECONDS (25.2-36.5)
[2020-11-19 09:05] LABS: CALCIUM 7.4 mg/dL (8.5-10.1)
[2020-11-19 09:09] LABS: CREATININE 2.9 mg/dL (0.55-1.3)
[2020-11-19 09:10] LABS: BILIRUBIN,TOTAL 0.2 mg/dL (0.2-1); TOT PROT 6.1 g/dl (6.4-8.2)
[2020-11-19 09:17] LABS: ALBUMIN 1.4 g/dl (3.4-5.0)
[2020-11-19 09:48] LABS: URINE APPEARANCE TURBID; URINE COLOR YELLOW; URINE GLUCOSE (UA) NEGATIVE (NEGATIVE)
[2020-11-19 09:49] LABS: EPI CELLS >36 /uL (0-25.1); HYALINE CASTS 345 /uL (0-3.1); URINE BACTERIA 72 /uL (0-1359); URINE BILIRUBIN Negative (NEGATIVE); URINE KETONE Negative (NEGATIVE); URINE LEUK ESTERASE Large (NEGATIVE); URINE NITRITE Negative (NEGATIVE); URINE PROTEIN >=1000 (NEGATIVE); URINE UROBILINOGEN 0.2 mg/dL (0.2-1.0); URINE WBC 28268 /uL (0-25.8)
[2020-11-19] MEDS ORDERED: LABETALOL HCL 5 MG/1 ML (100MG/20 ML VIAL) IVPUSH ONE ×2 (09:49→12:54)
[2020-11-19] MEDS ORDERED: LABETALOL HCL 5 MG/1 ML (100MG/20 ML VIAL) ONE (09:50)
[2020-11-19] MEDS ORDERED: PIPERACILLIN/TAZOB 3.375 GM 3.375 GM in DEXTROSE 5%-WATER - 50 ML IVPB ONE (09:55)
[2020-11-19] MEDS ORDERED: PIPERACILLIN/TAZOB 3.375 GM 3.375 GM/50 ML BAG IVPB ONE (10:08)
[2020-11-19] MEDS ORDERED: PROPOFOL 1,000,000 MCG/100 ML VIAL IVPB SCH (11:15)
[2020-11-19] MEDS ORDERED: DAPTOMYCIN 360 MG in SODIUM CHLORIDE 50 ML IVPB ONE (11:20)
[2020-11-19] MEDS ORDERED: PROPOFOL 1,000,000 MCG/100 ML VIAL ONE (11:30)
[2020-11-19] MEDS ORDERED: MIDAZOLAM HCL 2 MG/2 ML SINGLE DOSE VIAL ONE (11:40)
[2020-11-19 12:31] LABS: ARTERIAL BLD GAS O2 SATURATION 99.1 % (95-98); ARTERIAL BLOOD GAS BASE EXCESS 1.7 mmol/L (-2-2); ARTERIAL BLOOD GAS PO2 159.7 mmHg (80-100); ARTERIAL BLOOD GAS pH 7.434 (7.350-7.450)
[2020-11-19 12:33] LABS: ALLENS TEST POSITIVE
[2020-11-19 12:36] LABS: VENT MODE A/C
[2020-11-19 12:37] LABS: VENT RATE 12
[2020-11-19] MEDS ORDERED: SODIUM CHLORIDE 0.45% 1,000 ML IV SCH (13:15)
[2020-11-19] MEDS ORDERED: PT OWN MED DRAWER 7, Y5N ONE (13:23)
[2020-11-19] MEDS ORDERED: INSULIN (NOVOLOG) ASPART 100 UNITS/ML 10ML VIAL ONE (13:23)
[2020-11-19] MEDS ORDERED: DEXTROSE 5%-0.45% SALINE 1,000 ML IV SCH (13:45)
[2020-11-19] MEDS: HEPARIN NA (PORCINE) 5,000 UNITS/ML 1ML VIAL SQ SCH ×2 (14:09→21:39)
[2020-11-19] MEDS ORDERED: DEXTROSE 5%-WATER - 50 ML IVPB ONE (17:26)
[2020-11-19] MEDS ORDERED: cefTRIAXone SODIUM 1 GM VIAL ONE (17:26)
[2020-11-19] MEDS: CEFTRIAXONE 1 GM in DEXTROSE 5%-WATER - 50 ML IVPB SCH (17:38)
[2020-11-19] MEDS: CHLORHEXIDINE GLUCONATE 4% CLEANSER FOR DECOLONIZATION TP SCH (21:39)
[2020-11-19] MEDS: MUPIROCIN 2% TOPICAL OINTMENT FOR DECOLONIZATION NS SCH (21:39)
[2020-11-20] MEDS: NICARDIPINE 25 MG in DEXTROSE 5%-WATER - 240 ML IVPB SCH (01:32)
[2020-11-20] MEDS: HEPARIN NA (PORCINE) 5,000 UNITS/ML 1ML VIAL SQ SCH ×3 (05:42→21:14)
[2020-11-20] MEDS: INSULIN SLIDING SCALE (NOVOLOG) 1 VIAL SQ SCH ×4 (06:53→21:29)
[2020-11-20 08:08] LABS: HEMATOCRIT 29.3 % (32.4-45.2); HEMOGLOBIN 9.6 GM/dL (10.7-15.3); MCH 26.3 pg (25.7-33.7); MCHC 32.6 g/dl (32.0-36.0); MEAN CELL VOLUME 80.8 fl (80-96); MEAN PLT VOLUME 7.4 fl (7.5-11.1); PLATELET COUNT 375 10^3/uL (134-434); RBC 3.63 M/mm3 (3.60-5.2); RDW 17.8 % (11.6-15.6); WHITE BLOOD COUNT 12.7 K/mm3 (4.0-10.0)
[2020-11-20 08:21] LABS: BLOOD UREA NITROGEN 30.7 mg/dL (7-18); CALCIUM 7.5 mg/dL (8.5-10.1)
[2020-11-20 08:22] LABS: ALBUMIN 1.4 g/dl (3.4-5.0); MAGNESIUM 1.6 mg/dL (1.8-2.4)
[2020-11-20 08:24] LABS: CREATININE 2.7 mg/dL (0.55-1.3)
[2020-11-20 08:25] LABS: PHOSPHOROUS 4.7 mg/dL (2.5-4.9)
[2020-11-20 08:26] LABS: BILIRUBIN,TOTAL 0.4 mg/dL (0.2-1); TOT PROT 6.5 g/dl (6.4-8.2)
[2020-11-20 08:33] LABS: INR 1.13 (0.83-1.09); PROTHROMBIN TIME (PATIENT) 13.8 SEC (9.7-13.0)
[2020-11-20 08:35] LABS: ACTIVATED PTT 26.1 SECONDS (25.2-36.5)
[2020-11-20] MEDS ORDERED: MAGNESIUM SULF 50% (8.12 MEQ/2 ML-1 GM VIAL) IVPB ONE (09:02)
[2020-11-20 09:04] LABS: ANISOCYTOSIS 1+; MACROCYTOSIS 1+; PLATELET ESTIMATE NORMAL
[2020-11-20] MEDS ORDERED: cefTRIAXone SODIUM 1 GM VIAL ONE (09:22)
[2020-11-20] MEDS ORDERED: DEXTROSE 5%-WATER - 50 ML IVPB ONE (09:22)
[2020-11-20] MEDS: SODIUM CHLORIDE 0.45% 1,000 ML IV SCH (09:39)
[2020-11-20] MEDS: amLODIPine BESYLATE 5 MG TABLET (FP) GT SCH (09:40)
[2020-11-20] MEDS: CEFTRIAXONE 1 GM in DEXTROSE 5%-WATER - 50 ML IVPB SCH (09:40)
[2020-11-20] MEDS: MUPIROCIN 2% TOPICAL OINTMENT FOR DECOLONIZATION NS SCH ×2 (09:41→21:16)
[2020-11-20] MEDS ORDERED: CEFTRIAXONE 1 GM in DEXTROSE 5%-WATER - 50 ML IVPB SCH (10:00)
[2020-11-20] MEDS ORDERED: LORazepam 2 MG/ML SDV VIAL IVPUSH ONE (10:03)
[2020-11-20 10:07] LABS: SARS-CoV-2 NAA Not Detected (Not Detected)
[2020-11-20] MEDS: PANTOPRAZOLE SODIUM 40 MG VIAL IVPUSH SCH (11:15)
[2020-11-20] MEDS ORDERED: LABETALOL HCL 5 MG/1 ML (100MG/20 ML VIAL) IVPUSH ONE (14:15)
[2020-11-20] MEDS ORDERED: amLODIPine BESYLATE 5 MG TABLET (FP) PO ONE (14:20)
[2020-11-20] MEDS ORDERED: amLODIPine BESYLATE 5 MG TABLET (FP) GT ONE (14:30)
[2020-11-20] MEDS: DAPTOMYCIN 360 MG in SODIUM CHLORIDE 50 ML IVPB SCH (15:00)
[2020-11-20] MEDS: COLLAGENASE CLOSTRIDIUM HIST. 30 GRAMS TUBE TP SCH (17:00)
[2020-11-20] MEDS: AMMONIUM LACTATE 12% LOTION 225 GM BOTTLE TP PRN (17:07)
[2020-11-20] MEDS ORDERED: ACETAMINOPHEN 1000 MG/100 ML BAG IVPB PRN (20:56)
[2020-11-20] MEDS: levETIRAcetam 500 MG/5 ML INJECTION VIAL IVPB SCH (21:14)
[2020-11-20] MEDS: LABETALOL HCL 100 MG TABLET (FP) PO SCH (21:14)
[2020-11-20] MEDS: CHLORHEXIDINE GLUCONATE 4% CLEANSER FOR DECOLONIZATION TP SCH (21:17)
[2020-11-21] MEDS: NICARDIPINE 25 MG in DEXTROSE 5%-WATER - 240 ML IVPB SCH (00:08)
[2020-11-21] MEDS: HEPARIN NA (PORCINE) 5,000 UNITS/ML 1ML VIAL SQ SCH ×3 (05:12→21:59)
[2020-11-21] MEDS: INSULIN SLIDING SCALE (NOVOLOG) 1 VIAL SQ SCH ×4 (06:42→22:01)
[2020-11-21 07:23] LABS: ALBUMIN 1.3 g/dl (3.4-5.0); BLOOD UREA NITROGEN 31.8 mg/dL (7-18); CALCIUM 7.7 mg/dL (8.5-10.1)
[2020-11-21 07:26] LABS: CREATININE 2.7 mg/dL (0.55-1.3); PHOSPHOROUS 4.7 mg/dL (2.5-4.9)
[2020-11-21 07:27] LABS: BILIRUBIN,TOTAL 0.5 mg/dL (0.2-1); TOT PROT 6.3 g/dl (6.4-8.2)
[2020-11-21 07:37] LABS: BASO % 0.8 % (0-2.0); EOS % 1.8 % (0-4.5); HEMATOCRIT 28.6 % (32.4-45.2); HEMOGLOBIN 9.3 GM/dL (10.7-15.3); LYMPH % 11.3 % (8-40); MCH 26.3 pg (25.7-33.7); MCHC 32.6 g/dl (32.0-36.0); MEAN CELL VOLUME 80.7 fl (80-96); MEAN PLT VOLUME 7.5 fl (7.5-11.1); MONO % 7.4 % (3.8-10.2); NEUT % 78.7 % (42.8-82.8); PLATELET COUNT 384 10^3/uL (134-434); RBC 3.54 M/mm3 (3.60-5.2); WHITE BLOOD COUNT 14.6 K/mm3 (4.0-10.0)
[2020-11-21] MEDS ORDERED: DEXTROSE 5%-WATER - 50 ML IVPB ONE (09:37)
[2020-11-21] MEDS ORDERED: cefTRIAXone SODIUM 1 GM VIAL ONE (09:37)
[2020-11-21] MEDS: SODIUM CHLORIDE 0.45% 1,000 ML IV SCH (09:40)
[2020-11-21] MEDS: CEFTRIAXONE 1 GM in DEXTROSE 5%-WATER - 50 ML IVPB SCH (09:40)
[2020-11-21] MEDS: PANTOPRAZOLE SODIUM 40 MG VIAL IVPUSH SCH (09:41)
[2020-11-21] MEDS: COLLAGENASE CLOSTRIDIUM HIST. 30 GRAMS TUBE TP SCH (09:41)
[2020-11-21] MEDS: levETIRAcetam 500 MG/5 ML INJECTION VIAL IVPB SCH ×2 (09:42→21:59)
[2020-11-21] MEDS: amLODIPine BESYLATE 5 MG TABLET (FP) GT SCH (09:43)
[2020-11-21] MEDS: LABETALOL HCL 100 MG TABLET (FP) PO SCH ×2 (09:44→22:00)
[2020-11-21] MEDS: MUPIROCIN 2% TOPICAL OINTMENT FOR DECOLONIZATION NS SCH ×2 (10:52→21:59)
[2020-11-21] MEDS: NYSTATIN POWDER 100,000 UNITS/GM - 15 GM TOPICAL POWDER TP SCH ×2 (13:30→22:00)
[2020-11-21] MEDS: CHLORHEXIDINE GLUCONATE 4% CLEANSER FOR DECOLONIZATION TP SCH (21:59)
[2020-11-22] MEDS: NICARDIPINE 25 MG in DEXTROSE 5%-WATER - 240 ML IVPB SCH (00:56)
[2020-11-22] MEDS ORDERED: MIDAZOLAM HCL 2 MG/2 ML SINGLE DOSE VIAL IVPUSH PRN (01:29)
[2020-11-22] MEDS ORDERED: MIDAZOLAM HCL 2 MG/2 ML SINGLE DOSE VIAL ONE (01:38)
[2020-11-22] MEDS: HEPARIN NA (PORCINE) 5,000 UNITS/ML 1ML VIAL SQ SCH ×3 (05:50→21:29)
[2020-11-22] MEDS: INSULIN SLIDING SCALE (NOVOLOG) 1 VIAL SQ SCH ×4 (06:02→21:39)
[2020-11-22 06:37] LABS: BASO % 0.9 % (0-2.0); EOS % 1.7 % (0-4.5); HEMATOCRIT 26.6 % (32.4-45.2); HEMOGLOBIN 8.8 GM/dL (10.7-15.3); LYMPH % 11.3 % (8-40); MCH 26.9 pg (25.7-33.7); MEAN CELL VOLUME 81.4 fl (80-96); MEAN PLT VOLUME 7.3 fl (7.5-11.1); MONO % 6.7 % (3.8-10.2); NEUT % 79.4 % (42.8-82.8); PLATELET COUNT 378 10^3/uL (134-434); RBC 3.27 M/mm3 (3.60-5.2); WHITE BLOOD COUNT 13.5 K/mm3 (4.0-10.0)
[2020-11-22 06:54] LABS: CALCIUM 7.8 mg/dL (8.5-10.1)
[2020-11-22 06:55] LABS: ALBUMIN 1.3 g/dl (3.4-5.0); MAGNESIUM 2.1 mg/dL (1.8-2.4)
[2020-11-22 06:58] LABS: CREATININE 2.8 mg/dL (0.55-1.3); PHOSPHOROUS 5.3 mg/dL (2.5-4.9)
[2020-11-22 07:00] LABS: BILIRUBIN,TOTAL 0.3 mg/dL (0.2-1); TOT PROT 5.9 g/dl (6.4-8.2)
[2020-11-22] MEDS ORDERED: cefTRIAXone SODIUM 1 GM VIAL ONE (08:59)
[2020-11-22] MEDS ORDERED: DEXTROSE 5%-WATER - 50 ML IVPB ONE (08:59)
[2020-11-22] MEDS: levETIRAcetam 500 MG/5 ML INJECTION VIAL IVPB SCH ×2 (09:02→21:29)
[2020-11-22] MEDS: LABETALOL HCL 100 MG TABLET (FP) PO SCH ×2 (09:02→21:29)
[2020-11-22] MEDS: amLODIPine BESYLATE 5 MG TABLET (FP) GT SCH (09:02)
[2020-11-22] MEDS: PANTOPRAZOLE SODIUM 40 MG VIAL IVPUSH SCH (09:02)
[2020-11-22] MEDS: CEFTRIAXONE 1 GM in DEXTROSE 5%-WATER - 50 ML IVPB SCH (09:02)
[2020-11-22] MEDS: COLLAGENASE CLOSTRIDIUM HIST. 30 GRAMS TUBE TP SCH (09:03)
[2020-11-22] MEDS: MUPIROCIN 2% TOPICAL OINTMENT FOR DECOLONIZATION NS SCH ×2 (09:03→21:39)
[2020-11-22] MEDS: SODIUM CHLORIDE 0.45% 1,000 ML IV SCH (09:03)
[2020-11-22] MEDS: NYSTATIN POWDER 100,000 UNITS/GM - 15 GM TOPICAL POWDER TP SCH ×2 (09:03→21:40)
[2020-11-22] MEDS ORDERED: PT OWN MED DRAWER 7, Y5N ONE (09:12)
[2020-11-22] MEDS: DAPTOMYCIN 360 MG in SODIUM CHLORIDE 50 ML IVPB SCH (10:18)
[2020-11-22] MEDS ORDERED: MIDAZOLAM HCL 2 MG/2 ML SINGLE DOSE VIAL IVPUSH ONE (19:45)
[2020-11-22] MEDS: CHLORHEXIDINE GLUCONATE 4% CLEANSER FOR DECOLONIZATION TP SCH (21:39)
[2020-11-23] MEDS: HEPARIN NA (PORCINE) 5,000 UNITS/ML 1ML VIAL SQ SCH ×3 (05:22→22:43)
[2020-11-23 05:43] LABS: HEMATOCRIT 25.8 % (32.4-45.2); HEMOGLOBIN 8.5 GM/dL (10.7-15.3); MCH 26.8 pg (25.7-33.7); MCHC 32.9 g/dl (32.0-36.0); MEAN CELL VOLUME 81.5 fl (80-96); MEAN PLT VOLUME 7.5 fl (7.5-11.1); PLATELET COUNT 390 10^3/uL (134-434); RBC 3.17 M/mm3 (3.60-5.2); RDW 17.8 % (11.6-15.6); WHITE BLOOD COUNT 11.9 K/mm3 (4.0-10.0)
[2020-11-23 05:59] LABS: CHLORIDE 112 mmol/L (98-107); SODIUM 145 mmol/L (136-145)
[2020-11-23 06:01] LABS: CALCIUM 7.7 mg/dL (8.5-10.1)
[2020-11-23 06:02] LABS: ALBUMIN 1.3 g/dl (3.4-5.0); ANION GAP 16 MMOL/L (8-16); BLOOD UREA NITROGEN 36.5 mg/dL (7-18); CO2 16 mmol/L (21-32); GLUCOSE,RANDOM 235 mg/dL (74-106); MAGNESIUM 2.1 mg/dL (1.8-2.4)
[2020-11-23 06:05] LABS: CREATININE 2.9 mg/dL (0.55-1.3); PHOSPHOROUS 5.3 mg/dL (2.5-4.9); SGOT/AST 7 U/L (15-37)
[2020-11-23 06:06] LABS: BILIRUBIN,TOTAL 0.3 mg/dL (0.2-1); TOT PROT 6.2 g/dl (6.4-8.2)
[2020-11-23 06:08] LABS: ALK PHOS 134 U/L (45-117)
[2020-11-23] MEDS: INSULIN SLIDING SCALE (NOVOLOG) 1 VIAL SQ SCH ×4 (06:33→22:48)
[2020-11-23 06:37] LABS: SGPT/ALT < 6 U/L (13-61)
[2020-11-23] MEDS ORDERED: cefTRIAXone SODIUM 1 GM VIAL ONE (09:08)
[2020-11-23] MEDS ORDERED: DEXTROSE 5%-WATER - 50 ML IVPB ONE (09:09)
[2020-11-23] MEDS: LABETALOL HCL 100 MG TABLET (FP) PO SCH ×2 (09:17→22:44)
[2020-11-23] MEDS: levETIRAcetam 500 MG/5 ML INJECTION VIAL IVPB SCH ×2 (09:17→22:43)
[2020-11-23] MEDS: NYSTATIN POWDER 100,000 UNITS/GM - 15 GM TOPICAL POWDER TP SCH ×2 (09:17→22:48)
[2020-11-23] MEDS: PANTOPRAZOLE SODIUM 40 MG VIAL IVPUSH SCH (09:17)
[2020-11-23] MEDS: amLODIPine BESYLATE 5 MG TABLET (FP) GT SCH (09:17)
[2020-11-23] MEDS: SODIUM CHLORIDE 0.45% 1,000 ML IV SCH (09:17)
[2020-11-23] MEDS: CEFTRIAXONE 1 GM in DEXTROSE 5%-WATER - 50 ML IVPB SCH (09:17)
[2020-11-23] MEDS: MUPIROCIN 2% TOPICAL OINTMENT FOR DECOLONIZATION NS SCH ×2 (09:17→22:48)
[2020-11-23] MEDS: COLLAGENASE CLOSTRIDIUM HIST. 30 GRAMS TUBE TP SCH (09:18)
[2020-11-23] MEDS ORDERED: PT OWN MED DRAWER 7, Y5N ONE (22:29)
[2020-11-23] MEDS: CHLORHEXIDINE GLUCONATE 4% CLEANSER FOR DECOLONIZATION TP SCH (22:48)
[2020-11-24] MEDS: INSULIN SLIDING SCALE (NOVOLOG) 1 VIAL SQ SCH ×4 (06:19→21:37)
[2020-11-24] MEDS: HEPARIN NA (PORCINE) 5,000 UNITS/ML 1ML VIAL SQ SCH ×3 (06:20→21:37)
[2020-11-24 07:06] LABS: HEMOGLOBIN 8.9 GM/dL (10.7-15.3); MCH 26.9 pg (25.7-33.7); MCHC 32.8 g/dl (32.0-36.0); MEAN PLT VOLUME 7.3 fl (7.5-11.1); PLATELET COUNT 421 10^3/uL (134-434); RDW 17.7 % (11.6-15.6); WHITE BLOOD COUNT 10.7 K/mm3 (4.0-10.0)
[2020-11-24 07:17] LABS: CHLORIDE 111 mmol/L (98-107); SODIUM 143 mmol/L (136-145)
[2020-11-24 07:21] LABS: ALBUMIN 1.3 g/dl (3.4-5.0); ANION GAP 20 MMOL/L (8-16); BLOOD UREA NITROGEN 41.4 mg/dL (7-18); CALCIUM 7.7 mg/dL (8.5-10.1); CO2 12 mmol/L (21-32); GLUCOSE,RANDOM 293 mg/dL (74-106); MAGNESIUM 2.1 mg/dL (1.8-2.4)
[2020-11-24 07:24] LABS: CREATININE 3.3 mg/dL (0.55-1.3)
[2020-11-24 07:26] LABS: BILIRUBIN,TOTAL 0.4 mg/dL (0.2-1); TOT PROT 6.6 g/dl (6.4-8.2)
[2020-11-24 07:27] LABS: ALK PHOS 139 U/L (45-117)
[2020-11-24 07:37] LABS: SGOT/AST < 3 U/L (15-37); SGPT/ALT < 6 U/L (13-61)
[2020-11-24 09:08] LABS: MACROCYTOSIS 0; PLATELET ESTIMATE NORMAL
[2020-11-24 09:09] LABS: ANISOCYTOSIS 3+
[2020-11-24 09:10] LABS: TARGET CELLS 2+
[2020-11-24] MEDS ORDERED: cefTRIAXone SODIUM 1 GM VIAL ONE (09:17)
[2020-11-24] MEDS ORDERED: DEXTROSE 5%-WATER - 50 ML IVPB ONE (09:17)
[2020-11-24] MEDS: levETIRAcetam 500 MG/5 ML INJECTION VIAL IVPB SCH ×2 (09:22→21:37)
[2020-11-24] MEDS: CEFTRIAXONE 1 GM in DEXTROSE 5%-WATER - 50 ML IVPB SCH (09:22)
[2020-11-24] MEDS: LABETALOL HCL 100 MG TABLET (FP) PO SCH ×2 (09:23→21:37)
[2020-11-24] MEDS: MUPIROCIN 2% TOPICAL OINTMENT FOR DECOLONIZATION NS SCH (09:23)
[2020-11-24] MEDS: amLODIPine BESYLATE 5 MG TABLET (FP) GT SCH (09:23)
[2020-11-24] MEDS: PANTOPRAZOLE SODIUM 40 MG VIAL IVPUSH SCH (09:23)
[2020-11-24] MEDS: COLLAGENASE CLOSTRIDIUM HIST. 30 GRAMS TUBE TP SCH (09:24)
[2020-11-24] MEDS: NYSTATIN POWDER 100,000 UNITS/GM - 15 GM TOPICAL POWDER TP SCH ×2 (09:24→21:37)
[2020-11-24] MEDS ORDERED: PT OWN MED DRAWER 7, Y5N ONE (11:26)
[2020-11-24] MEDS: DAPTOMYCIN 360 MG in SODIUM CHLORIDE 50 ML IVPB SCH (11:27)
[2020-11-24] MEDS: SODIUM BICARBONATE 8.4% 50 MEQ/50 ML DISP.SYRIN IVPUSH SCH ×2 (15:49→20:00)
[2020-11-24] MEDS: CHLORHEXIDINE GLUCONATE 4% CLEANSER FOR DECOLONIZATION TP SCH (21:37)
[2020-11-25] MEDS: INSULIN SLIDING SCALE (NOVOLOG) 1 VIAL SQ SCH ×2 (06:25→10:45)
[2020-11-25] MEDS: HEPARIN NA (PORCINE) 5,000 UNITS/ML 1ML VIAL SQ SCH ×3 (06:25→21:15)
[2020-11-25 07:44] LABS: CHLORIDE 112 mmol/L (98-107); SODIUM 145 mmol/L (136-145)
[2020-11-25 07:49] LABS: CALCIUM 7.6 mg/dL (8.5-10.1)
[2020-11-25 07:50] LABS: ALBUMIN 1.2 g/dl (3.4-5.0); ANION GAP 22 MMOL/L (8-16); BLOOD UREA NITROGEN 51.1 mg/dL (7-18); CO2 11 mmol/L (21-32)
[2020-11-25 07:53] LABS: CREATININE 3.4 mg/dL (0.55-1.3); SGOT/AST 9 U/L (15-37); SGPT/ALT 6 U/L (13-61)
[2020-11-25 07:54] LABS: BILIRUBIN,TOTAL 0.8 mg/dL (0.2-1); TOT PROT 6.3 g/dl (6.4-8.2)
[2020-11-25 07:56] LABS: ALK PHOS 161 U/L (45-117)
[2020-11-25 07:58] LABS: GLUCOSE,RANDOM 492 mg/dL (74-106)
[2020-11-25] MEDS ORDERED: DEXTROSE 5%-WATER - 50 ML IVPB ONE (09:11)
[2020-11-25] MEDS ORDERED: cefTRIAXone SODIUM 1 GM VIAL ONE (09:11)
[2020-11-25] MEDS: CEFTRIAXONE 1 GM in DEXTROSE 5%-WATER - 50 ML IVPB SCH (10:05)
[2020-11-25] MEDS: PANTOPRAZOLE SODIUM 40 MG VIAL IVPUSH SCH (10:06)
[2020-11-25] MEDS: amLODIPine BESYLATE 5 MG TABLET (FP) GT SCH (10:06)
[2020-11-25] MEDS: levETIRAcetam 500 MG/5 ML INJECTION VIAL IVPB SCH ×2 (10:06→21:15)
[2020-11-25] MEDS: NYSTATIN POWDER 100,000 UNITS/GM - 15 GM TOPICAL POWDER TP SCH ×2 (10:07→21:16)
[2020-11-25] MEDS: LABETALOL HCL 100 MG TABLET (FP) PO SCH (10:07)
[2020-11-25] MEDS: COLLAGENASE CLOSTRIDIUM HIST. 30 GRAMS TUBE TP SCH (10:08)
[2020-11-25] MEDS: SODIUM BICARBONATE 8.4% 50 MEQ/50 ML DISP.SYRIN IVPUSH SCH ×3 (10:36→12:51)
[2020-11-25] MEDS ORDERED: DEXTROSE 50%-WATER - 25 GM/50 ML VIAL IVPUSH PRN (10:54)
[2020-11-25] MEDS ORDERED: INSULIN REGULAR HUMAN 100 UNITS/ML *VIAL* (FOR IVP) IVPUSH ONE (11:00)
[2020-11-25] MEDS ORDERED: INSULIN REGULAR HUMAN 100 UNITS/ML *VIAL ONE (12:00)
[2020-11-25] MEDS ORDERED: INSULIN REGULAR 100 UNITS in SODIUM CHLORIDE 99 ML IVPB SCH (12:15)
[2020-11-25] MEDS: SODIUM CHLORIDE 0.45% 1,000 ML IV SCH (12:27)
[2020-11-25] MEDS: ACETAMINOPHEN 1000 MG/100 ML BAG IVPB PRN ×2 (13:21→21:13)
[2020-11-25 16:29] VITALS: BMI 37.4
[2020-11-25] MEDS: SODIUM BICARBONATE 650 MG TABLET GT SCH ×2 (16:33→21:15)
[2020-11-25 19:47] LABS: URINE APPEARANCE TURBID; URINE COLOR YELLOW; URINE GLUCOSE (UA) 250 (NEGATIVE)
[2020-11-25 19:48] LABS: URINE BILIRUBIN NEGATIVE (NEGATIVE); URINE KETONE 15 mg/dl (NEGATIVE); URINE LEUK ESTERASE 4+ (NEGATIVE); URINE NITRITE NEGATIVE (NEGATIVE); URINE PROTEIN 300 (NEGATIVE); URINE RBC 546.2 /uL (0-23.9); URINE UROBILINOGEN 0.2 mg/dL (0.2-1.0)
[2020-11-25] MEDS: CHLORHEXIDINE GLUCONATE 4% CLEANSER FOR DECOLONIZATION TP SCH (21:15)
[2020-11-25] MEDS: LABETALOL HCL 100 MG TABLET (FP) GT SCH (21:15)
[2020-11-25] MEDS: AMMONIUM LACTATE 12% LOTION 225 GM BOTTLE TP PRN (22:30)
[2020-11-26 00:33] LABS: CHLORIDE 117 mmol/L (98-107); SODIUM 151 mmol/L (136-145)
[2020-11-26 00:34] LABS: CALCIUM 7.5 mg/dL (8.5-10.1)
[2020-11-26 00:35] LABS: BLOOD UREA NITROGEN 50.6 mg/dL (7-18); CO2 26 mmol/L (21-32); GLUCOSE,RANDOM 147 mg/dL (74-106)
[2020-11-26 00:38] LABS: CREATININE 3.5 mg/dL (0.55-1.3)
[2020-11-26 00:56] LABS: ANION GAP 8 MMOL/L (8-16)
[2020-11-26] MEDS ORDERED: POTASSIUM CHLORIDE ORAL LIQUID 20 MEQ/15 ML PO ONE (01:03)
[2020-11-26] MEDS: INSULIN (NOVOLOG) ASPART 100 UNITS/ML 10ML VIAL SQ SCH ×6 (02:46→20:54)
[2020-11-26] MEDS: KCL 10 MEQ IVPB 10 MEQ/100 ML INFUS.BAG IVPB SCH ×2 (02:55→05:35)
[2020-11-26] MEDS: HEPARIN NA (PORCINE) 5,000 UNITS/ML 1ML VIAL SQ SCH ×3 (05:35→20:59)
[2020-11-26] MEDS: SODIUM BICARBONATE 650 MG TABLET GT SCH ×3 (05:35→20:59)
[2020-11-26] MEDS ORDERED: fentaNYL CITRATE 250 MCG/5 ML VIAL ONE (05:39)
[2020-11-26] MEDS: ACETAMINOPHEN 1000 MG/100 ML BAG IVPB PRN (06:01)
[2020-11-26] MEDS ORDERED: INSULIN (NOVOLOG) ASPART 100 UNITS/ML 10ML VIAL SQ SCH (07:00)
[2020-11-26 07:03] LABS: BASO % 0.6 % (0-2.0); EOS % 0.9 % (0-4.5); HEMATOCRIT 24.3 % (32.4-45.2); HEMOGLOBIN 8.1 GM/dL (10.7-15.3); LYMPH % 11.4 % (8-40); MCH 26.9 pg (25.7-33.7); MCHC 33.5 g/dl (32.0-36.0); MEAN CELL VOLUME 80.4 fl (80-96); MEAN PLT VOLUME 7.2 fl (7.5-11.1); MONO % 3.9 % (3.8-10.2); NEUT % 83.2 % (42.8-82.8); PLATELET COUNT 435 10^3/uL (134-434); RBC 3.02 M/mm3 (3.60-5.2); RDW 17.5 % (11.6-15.6); WHITE BLOOD COUNT 17.1 K/mm3 (4.0-10.0)
[2020-11-26 07:24] LABS: BLOOD UREA NITROGEN 51.4 mg/dL (7-18); CALCIUM 7.4 mg/dL (8.5-10.1)
[2020-11-26 07:28] LABS: CREATININE 3.3 mg/dL (0.55-1.3); PHOSPHOROUS 3.2 mg/dL (2.5-4.9)
[2020-11-26] MEDS ORDERED: AMINO ACIDS/PROTEIN HYDROLYS 30 ML LIQUID.PKT PO SCH (08:00)
[2020-11-26] MEDS ORDERED: PT OWN MED DRAWER 7, Y5N ONE (09:14)
[2020-11-26] MEDS: levETIRAcetam 500 MG/5 ML INJECTION VIAL IVPB SCH ×2 (09:16→20:59)
[2020-11-26] MEDS: AMINO ACIDS/PROTEIN HYDROLYS 30 ML LIQUID.PKT GT SCH (09:16)
[2020-11-26] MEDS: PANTOPRAZOLE SODIUM 40 MG VIAL IVPUSH SCH (09:19)
[2020-11-26] MEDS: COLLAGENASE CLOSTRIDIUM HIST. 30 GRAMS TUBE TP SCH (09:19)
[2020-11-26] MEDS: LABETALOL HCL 100 MG TABLET (FP) GT SCH ×2 (09:19→20:59)
[2020-11-26] MEDS: amLODIPine BESYLATE 5 MG TABLET (FP) GT SCH (09:19)
[2020-11-26] MEDS: NYSTATIN POWDER 100,000 UNITS/GM - 15 GM TOPICAL POWDER TP SCH ×2 (09:20→20:59)
[2020-11-26] MEDS: DAPTOMYCIN 360 MG in SODIUM CHLORIDE 50 ML IVPB SCH (09:24)
[2020-11-26] MEDS: SODIUM CHLORIDE 0.45% 1,000 ML IV SCH (14:04)
[2020-11-26] MEDS ORDERED: PIPERACILLIN/TAZOBACTAM 2.25 GM VIAL IVPB ONE (17:30)
[2020-11-26] MEDS ORDERED: DEXTROSE 5%-WATER - 50 ML IVPB ONE (17:30)
[2020-11-26] MEDS: PIPERACILLIN/TAZOB 2.25 GM 2.25 GM in DEXTROSE 5%-WATER - 50 ML IVPB SCH (17:39)
[2020-11-26] MEDS: CHLORHEXIDINE GLUCONATE 4% CLEANSER FOR DECOLONIZATION TP SCH (20:59)
[2020-11-26] MEDS: AMMONIUM LACTATE 12% LOTION 225 GM BOTTLE TP PRN (23:00)
[2020-11-27] MEDS: INSULIN (NOVOLOG) ASPART 100 UNITS/ML 10ML VIAL SQ SCH ×3 (01:13→10:09)
[2020-11-27] MEDS ORDERED: DEXTROSE 5%-WATER - 50 ML IVPB ONE ×4 (01:28→22:49)
[2020-11-27] MEDS ORDERED: PIPERACILLIN/TAZOBACTAM 2.25 GM VIAL IVPB ONE ×4 (01:28→22:49)
[2020-11-27] MEDS: PIPERACILLIN/TAZOB 2.25 GM 2.25 GM in DEXTROSE 5%-WATER - 50 ML IVPB SCH ×5 (01:33→21:08)
[2020-11-27] MEDS: HEPARIN NA (PORCINE) 5,000 UNITS/ML 1ML VIAL SQ SCH ×3 (05:23→21:08)
[2020-11-27] MEDS: SODIUM BICARBONATE 650 MG TABLET GT SCH (05:23)
[2020-11-27 06:52] LABS: BASO % 0.7 % (0-2.0); EOS % 1.8 % (0-4.5); HEMATOCRIT 24.6 % (32.4-45.2); HEMOGLOBIN 8.4 GM/dL (10.7-15.3); LYMPH % 10.2 % (8-40); MCH 27.4 pg (25.7-33.7); MCHC 34.1 g/dl (32.0-36.0); MEAN CELL VOLUME 80.5 fl (80-96); MEAN PLT VOLUME 7.5 fl (7.5-11.1); MONO % 3.2 % (3.8-10.2); NEUT % 84.1 % (42.8-82.8); PLATELET COUNT 430 10^3/uL (134-434); RBC 3.06 M/mm3 (3.60-5.2); RDW 17.7 % (11.6-15.6); WHITE BLOOD COUNT 16.8 K/mm3 (4.0-10.0)
[2020-11-27 07:16] LABS: BLOOD UREA NITROGEN 51.4 mg/dL (7-18); CALCIUM 7.5 mg/dL (8.5-10.1)
[2020-11-27 07:17] LABS: ALBUMIN 1.1 g/dl (3.4-5.0); MAGNESIUM 2.2 mg/dL (1.8-2.4)
[2020-11-27 07:19] LABS: BILIRUBIN,TOTAL 0.2 mg/dL (0.2-1); CREATININE 2.7 mg/dL (0.55-1.3); PHOSPHOROUS 2.9 mg/dL (2.5-4.9); TOT PROT 6.2 g/dl (6.4-8.2)
[2020-11-27] MEDS ORDERED: PT OWN MED DRAWER 7, Y5N ONE (09:20)
[2020-11-27] MEDS: PANTOPRAZOLE SODIUM 40 MG VIAL IVPUSH SCH (09:38)
[2020-11-27] MEDS: AMINO ACIDS/PROTEIN HYDROLYS 30 ML LIQUID.PKT GT SCH (09:39)
[2020-11-27] MEDS: NYSTATIN POWDER 100,000 UNITS/GM - 15 GM TOPICAL POWDER TP SCH ×2 (09:39→21:09)
[2020-11-27] MEDS: LABETALOL HCL 100 MG TABLET (FP) GT SCH ×2 (09:39→21:09)
[2020-11-27] MEDS: levETIRAcetam 500 MG/5 ML INJECTION VIAL IVPB SCH ×2 (09:39→21:09)
[2020-11-27] MEDS: amLODIPine BESYLATE 5 MG TABLET (FP) GT SCH (09:39)
[2020-11-27] MEDS: COLLAGENASE CLOSTRIDIUM HIST. 30 GRAMS TUBE TP SCH (09:40)
[2020-11-27] MEDS ORDERED: POTASSIUM CHLORIDE ORAL LIQUID 20 MEQ/15 ML PO ONE (12:30)
[2020-11-27] MEDS: INSULIN SLIDING SCALE (NOVOLOG) 1 VIAL SQ SCH ×2 (14:09→21:21)
[2020-11-27] MEDS ORDERED: INSULIN SLIDING SCALE (NOVOLOG) 1 VIAL SQ SCH (16:30)
[2020-11-27] MEDS: SODIUM CHLORIDE 0.45% 1,000 ML IV SCH (21:08)
[2020-11-27] MEDS: CHLORHEXIDINE GLUCONATE 4% CLEANSER FOR DECOLONIZATION TP SCH (21:09)
[2020-11-28] MEDS: PIPERACILLIN/TAZOB 2.25 GM 2.25 GM in DEXTROSE 5%-WATER - 50 ML IVPB SCH ×3 (01:14→17:11)
[2020-11-28] MEDS: INSULIN SLIDING SCALE (NOVOLOG) 1 VIAL SQ SCH ×4 (01:21→21:13)
[2020-11-28] MEDS: HEPARIN NA (PORCINE) 5,000 UNITS/ML 1ML VIAL SQ SCH ×3 (05:49→21:13)
[2020-11-28 06:53] LABS: BASO % 1.1 % (0-2.0); EOS % 2.7 % (0-4.5); HEMATOCRIT 23.4 % (32.4-45.2); HEMOGLOBIN 7.6 GM/dL (10.7-15.3); LYMPH % 7.5 % (8-40); MCH 26.3 pg (25.7-33.7); MCHC 32.7 g/dl (32.0-36.0); MEAN CELL VOLUME 80.4 fl (80-96); MEAN PLT VOLUME 7.2 fl (7.5-11.1); MONO % 4.4 % (3.8-10.2); NEUT % 84.3 % (42.8-82.8); PLATELET COUNT 417 10^3/uL (134-434); RBC 2.91 M/mm3 (3.60-5.2); RDW 17.7 % (11.6-15.6); WHITE BLOOD COUNT 17.3 K/mm3 (4.0-10.0)
[2020-11-28 07:06] LABS: BLOOD UREA NITROGEN 54.7 mg/dL (7-18); CALCIUM 7.5 mg/dL (8.5-10.1)
[2020-11-28 07:10] LABS: CREATININE 2.6 mg/dL (0.55-1.3)
[2020-11-28] MEDS: AMINO ACIDS/PROTEIN HYDROLYS 30 ML LIQUID.PKT GT SCH ×2 (09:00→17:13)
[2020-11-28] MEDS ORDERED: PIPERACILLIN/TAZOBACTAM 2.25 GM VIAL IVPB ONE ×2 (09:03→17:10)
[2020-11-28] MEDS ORDERED: DEXTROSE 5%-WATER - 50 ML IVPB ONE ×2 (09:03→17:10)
[2020-11-28] MEDS: PANTOPRAZOLE SODIUM 40 MG VIAL IVPUSH SCH (09:07)
[2020-11-28] MEDS: levETIRAcetam 500 MG/5 ML INJECTION VIAL IVPB SCH ×2 (09:08→21:14)
[2020-11-28] MEDS: LABETALOL HCL 100 MG TABLET (FP) GT SCH ×2 (09:11→21:13)
[2020-11-28] MEDS: amLODIPine BESYLATE 5 MG TABLET (FP) GT SCH (09:12)
[2020-11-28] MEDS: NYSTATIN POWDER 100,000 UNITS/GM - 15 GM TOPICAL POWDER TP SCH ×2 (09:13→21:14)
[2020-11-28] MEDS: COLLAGENASE CLOSTRIDIUM HIST. 30 GRAMS TUBE TP SCH (09:13)
[2020-11-28] MEDS ORDERED: SODIUM BICARBONATE 650 MG TABLET GT SCH (10:00)
[2020-11-28] MEDS: DAPTOMYCIN 360 MG in SODIUM CHLORIDE 50 ML IVPB SCH (10:37)
[2020-11-28] MEDS: CHLORHEXIDINE GLUCONATE 4% CLEANSER FOR DECOLONIZATION TP SCH (21:14)
[2020-11-29] MEDS ORDERED: DEXTROSE 5%-WATER - 50 ML IVPB ONE ×3 (02:07→17:28)
[2020-11-29] MEDS ORDERED: PIPERACILLIN/TAZOBACTAM 2.25 GM VIAL IVPB ONE ×3 (02:07→17:27)
[2020-11-29] MEDS: PIPERACILLIN/TAZOB 2.25 GM 2.25 GM in DEXTROSE 5%-WATER - 50 ML IVPB SCH ×3 (02:20→17:31)
[2020-11-29] MEDS: INSULIN SLIDING SCALE (NOVOLOG) 1 VIAL SQ SCH ×4 (02:22→20:54)
[2020-11-29] MEDS: HEPARIN NA (PORCINE) 5,000 UNITS/ML 1ML VIAL SQ SCH ×3 (06:21→21:00)
[2020-11-29] MEDS: AMINO ACIDS/PROTEIN HYDROLYS 30 ML LIQUID.PKT GT SCH ×2 (08:53→17:31)
[2020-11-29] MEDS: amLODIPine BESYLATE 5 MG TABLET (FP) GT SCH (09:23)
[2020-11-29] MEDS: VITAMIN B COMP W-C 1 EA TABLET (NEPHRO-VITE) PO SCH (09:23)
[2020-11-29] MEDS: LABETALOL HCL 100 MG TABLET (FP) GT SCH ×2 (09:23→21:00)
[2020-11-29] MEDS: levETIRAcetam 500 MG/5 ML INJECTION VIAL IVPB SCH ×2 (09:24→20:59)
[2020-11-29] MEDS: PANTOPRAZOLE SODIUM 40 MG VIAL IVPUSH SCH (09:24)
[2020-11-29] MEDS: COLLAGENASE CLOSTRIDIUM HIST. 30 GRAMS TUBE TP SCH (09:25)
[2020-11-29] MEDS: NYSTATIN POWDER 100,000 UNITS/GM - 15 GM TOPICAL POWDER TP SCH ×2 (09:25→21:02)
[2020-11-29] MEDS ORDERED: PT OWN MED DRAWER 7, Y5N ONE (20:42)
[2020-11-29] MEDS: CHLORHEXIDINE GLUCONATE 4% CLEANSER FOR DECOLONIZATION TP SCH (21:01)
[2020-11-30] MEDS ORDERED: PIPERACILLIN/TAZOBACTAM 2.25 GM VIAL IVPB ONE ×3 (00:02→17:29)
[2020-11-30] MEDS ORDERED: DEXTROSE 5%-WATER - 50 ML IVPB ONE ×3 (00:02→17:29)
[2020-11-30] MEDS: INSULIN SLIDING SCALE (NOVOLOG) 1 VIAL SQ SCH ×4 (01:34→21:28)
[2020-11-30] MEDS: PIPERACILLIN/TAZOB 2.25 GM 2.25 GM in DEXTROSE 5%-WATER - 50 ML IVPB SCH ×3 (01:35→17:31)
[2020-11-30] MEDS: HEPARIN NA (PORCINE) 5,000 UNITS/ML 1ML VIAL SQ SCH ×3 (05:29→21:34)
[2020-11-30 07:38] LABS: BASO % 0.6 % (0-2.0); EOS % 2.8 % (0-4.5); HEMATOCRIT 25.2 % (32.4-45.2); HEMOGLOBIN 8.4 GM/dL (10.7-15.3); LYMPH % 9.5 % (8-40); MCHC 33.4 g/dl (32.0-36.0); MEAN CELL VOLUME 80.8 fl (80-96); MEAN PLT VOLUME 7.8 fl (7.5-11.1); MONO % 5.1 % (3.8-10.2); PLATELET COUNT 468 10^3/uL (134-434); RBC 3.11 M/mm3 (3.60-5.2); RDW 17.5 % (11.6-15.6); WHITE BLOOD COUNT 15.2 K/mm3 (4.0-10.0)
[2020-11-30 07:58] LABS: BLOOD UREA NITROGEN 56.5 mg/dL (7-18)
[2020-11-30] MEDS: AMINO ACIDS/PROTEIN HYDROLYS 30 ML LIQUID.PKT GT SCH ×2 (08:37→17:30)
[2020-11-30] MEDS: amLODIPine BESYLATE 5 MG TABLET (FP) GT SCH (10:33)
[2020-11-30] MEDS: levETIRAcetam 500 MG/5 ML INJECTION VIAL IVPB SCH ×2 (10:33→21:34)
[2020-11-30] MEDS: VITAMIN B COMP W-C 1 EA TABLET (NEPHRO-VITE) PO SCH (10:33)
[2020-11-30] MEDS: LABETALOL HCL 100 MG TABLET (FP) GT SCH ×2 (10:33→21:34)
[2020-11-30] MEDS: PANTOPRAZOLE SODIUM 40 MG VIAL IVPUSH SCH (10:34)
[2020-11-30] MEDS ORDERED: KCL 10 MEQ IVPB 10 MEQ/100 ML INFUS.BAG IVPB SCH (11:00)
[2020-11-30] MEDS: DAPTOMYCIN 360 MG in SODIUM CHLORIDE 50 ML IVPB SCH (11:20)
[2020-11-30] MEDS: NYSTATIN POWDER 100,000 UNITS/GM - 15 GM TOPICAL POWDER TP SCH ×2 (14:21→21:35)
[2020-11-30] MEDS: COLLAGENASE CLOSTRIDIUM HIST. 30 GRAMS TUBE TP SCH (14:21)
[2020-11-30] MEDS: CHLORHEXIDINE GLUCONATE 4% CLEANSER FOR DECOLONIZATION TP SCH (21:34)
[2020-12-01] MEDS ORDERED: PIPERACILLIN/TAZOBACTAM 2.25 GM VIAL IVPB ONE ×2 (01:31→09:06)
[2020-12-01] MEDS ORDERED: DEXTROSE 5%-WATER - 50 ML IVPB ONE ×2 (01:31→09:06)
[2020-12-01] MEDS: PIPERACILLIN/TAZOB 2.25 GM 2.25 GM in DEXTROSE 5%-WATER - 50 ML IVPB SCH ×2 (01:48→09:11)
[2020-12-01] MEDS: INSULIN SLIDING SCALE (NOVOLOG) 1 VIAL SQ SCH ×2 (01:56→08:53)
[2020-12-01] MEDS: HEPARIN NA (PORCINE) 5,000 UNITS/ML 1ML VIAL SQ SCH ×2 (05:53→13:09)
[2020-12-01 07:23] LABS: BASO % 0.6 % (0-2.0); EOS % 2.1 % (0-4.5); HEMATOCRIT 24.1 % (32.4-45.2); LYMPH % 7.5 % (8-40); MCH 26.4 pg (25.7-33.7); MCHC 33.1 g/dl (32.0-36.0); MEAN CELL VOLUME 79.8 fl (80-96); MEAN PLT VOLUME 7.6 fl (7.5-11.1); MONO % 6.8 % (3.8-10.2); PLATELET COUNT 472 10^3/uL (134-434); RBC 3.02 M/mm3 (3.60-5.2); RDW 17.4 % (11.6-15.6); WHITE BLOOD COUNT 18.2 K/mm3 (4.0-10.0)
[2020-12-01 07:48] LABS: CHLORIDE 118 mmol/L (98-107); SODIUM 149 mmol/L (136-145)
[2020-12-01 07:50] LABS: CALCIUM 7.7 mg/dL (8.5-10.1)
[2020-12-01 07:51] LABS: ALBUMIN 1.2 g/dl (3.4-5.0); ANION GAP 6 MMOL/L (8-16); BLOOD UREA NITROGEN 56.2 mg/dL (7-18); CO2 25 mmol/L (21-32); GLUCOSE,RANDOM 259 mg/dL (74-106); MAGNESIUM 1.9 mg/dL (1.8-2.4)
[2020-12-01 07:54] LABS: PHOSPHOROUS 2.8 mg/dL (2.5-4.9); SGPT/ALT 6 U/L (13-61)
[2020-12-01 07:57] LABS: BILIRUBIN,TOTAL 0.2 mg/dL (0.2-1); TOT PROT 6.8 g/dl (6.4-8.2)
[2020-12-01 08:00] LABS: ALK PHOS 143 U/L (45-117)
[2020-12-01 08:04] LABS: SGOT/AST < 3 U/L (15-37)
[2020-12-01] MEDS ORDERED: PT OWN MED DRAWER 7, Y5N ONE (09:06)
[2020-12-01] MEDS: PANTOPRAZOLE SODIUM 40 MG VIAL IVPUSH SCH (09:11)
[2020-12-01] MEDS: levETIRAcetam 500 MG/5 ML INJECTION VIAL IVPB SCH (09:11)
[2020-12-01] MEDS: VITAMIN B COMP W-C 1 EA TABLET (NEPHRO-VITE) PO SCH (09:12)
[2020-12-01] MEDS: amLODIPine BESYLATE 5 MG TABLET (FP) GT SCH (09:12)
[2020-12-01] MEDS: LABETALOL HCL 100 MG TABLET (FP) GT SCH (09:12)
[2020-12-01] MEDS: COLLAGENASE CLOSTRIDIUM HIST. 30 GRAMS TUBE TP SCH (09:12)
[2020-12-01] MEDS: NYSTATIN POWDER 100,000 UNITS/GM - 15 GM TOPICAL POWDER TP SCH (09:12)
[2020-12-01] MEDS: AMINO ACIDS/PROTEIN HYDROLYS 30 ML LIQUID.PKT GT SCH (09:12)
[2020-12-01] MEDS ORDERED: amLODIPine BESYLATE 5 MG TABLET (FP) GT ONE (11:31)
[2020-12-01] MEDS ORDERED: POTASSIUM CHLORIDE ORAL LIQUID 20 MEQ/15 ML NGT ONE (13:00)
[2020-12-01] MEDS ORDERED: MORPHINE SULFATE/0.9% NACL/PF 100 MG/100 ML BAG IVPB SCH (13:45)
[2020-12-01] MEDS: MORPHINE SULFATE/0.9% NACL/PF 100 MG/100 ML BAG IVPB SCH (14:30)
[2020-12-02] MEDS ORDERED: LORazepam 2 MG/ML SDV VIAL IVPUSH PRN (06:34)
[2020-12-02 08:15] VITALS: TEMP 97
[2020-12-02] MEDS ORDERED: morphine SULFATE 4 MG/ML VIAL IVPUSH ONE (09:30)
[2020-12-02] MEDS: MORPHINE SULFATE/0.9% NACL/PF 100 MG/100 ML BAG IVPB SCH (10:36)
[2020-12-02 15:22] VITALS: BP 84/44; PULSE 69
== END 2020-12-02 19:20 | disposition expired | DRG 870 ==
LOC: JER 07:25 → JERBED 11:07 → JICU 11:59
PROVIDERS: ADMIT Family Medicine; ATTEND Family Medicine
PROC: 5A1955Z Respiratory Ventilation, Greater than 96 Consecutive Hours (ICD-10-PCS; principal; 2020-11-19)
PROC: 0BH17EZ Insertion of Endotracheal Airway into Trachea, Via Natural or Artificial Opening (ICD-10-PCS; 2020-11-19)
DX: A41.59 Other Gram-negative sepsis (principal); J96.00 Acute respiratory failure, unspecified whether with hypoxia or hypercapnia; G92 Toxic encephalopathy; M86.9 Osteomyelitis, unspecified; L97.518 Non-pressure chronic ulcer of other part of right foot with other specified severity; N39.0 Urinary tract infection, site not specified; G93.1 Anoxic brain damage, not elsewhere classified; E87.2 Acidosis; N18.4 Chronic kidney disease, stage 4 (severe); E11.649 Type 2 diabetes mellitus with hypoglycemia without coma; E11.621 Type 2 diabetes mellitus with foot ulcer; E11.40 Type 2 diabetes mellitus with diabetic neuropathy, unspecified; E11.69 Type 2 diabetes mellitus with other specified complication; D63.1 Anemia in chronic kidney disease
CPT/HCPCS: 36415; 36600; 70450-TC; 71045-TC-FY; 80048; 80053; 81003; 82550; 82803; 82962; 83036; 83605; 83735; 84100; 84146; 84443; 84484; 85025; 85027; 85610; 85730; 87040; 87070; 87077; 87086; 87186; 87205; 87324; 87449; 93005; 93010; 94002; 95816; 95860-TC; 99291; C9803; J0131; J0878; J1644; U0003; U0005